=== PATIENT | male | born 1955 | race African-American/Black ===

== ENCOUNTER 2017-05-16 21:54 | Inpatient (IN) ==
[2017-05-16] MEDS ORDERED: SODIUM CHLORIDE 0.9% 1,000 ML IV STA (22:22)
[2017-05-16] MEDS ORDERED: MORPHINE 2 MG/1 ML SYRINGE IV STA (22:22)
[2017-05-16] MEDS ORDERED: ONDANSETRON 4 MG/2 ML VIAL IV STA (22:22)
--- NOTE | 2017-05-16 22:23 | Emergency Department Note ---
Aneesh Nunes Emily, am scribing for, and in the presence of, Fer Manuel MD 22:22. Kaleb Nunes Andrew, MD, personally performed the services described in this documentation, ascribed by Kelli Melendrez in my presence, and it is both accurate and complete . Arrival - Arrival Chief Complaint: Abdominal / Flank Pain Stated Complaint: STOMACH PAINS ALL DAY ED Nursing Triage Note: C/O Upper abd pain/nausea. Onset yesterday evening. Pt reports that the pain has progressively been getting worse all day today. Last BM this morning-normal. +diaphoresis noted at time of triage. Pt reports that he has been out of his zantac for a couple of days. FSG 202 at time of triage Mode of Arrival: Wheelchair Limitations: No Limitations Source: Patient, Family - History of Present Illness HPI Narrative: Pt is a 61 y/o male who came to ED with c/o sharp epigastric pain that started yesterday but worsened today. Pt notes some emesis and once after eating some naida greens for lunch. Pt admits to smoking tobacco and marijuana but denies daily ETOH use. Pt reports having mild nausea in ED. PMHx of NIDDM, HTN , GERD. Pt's heart rate is 41 in ED. Onset (ago): hour(s) Consistency: constant Severity: mild, moderate Severity scale (1-10): 4 Quality: aching, sharp Allergies/Adverse Reactions: Allergies Allergy/AdvReac Type Severity Reaction Status Date / Time codeine Allergy Intermediate ITCHING Verified 05/16/17 21:58 Home Medications: Home Medications Medication Instructions Recorded Confirmed Type Aspirin 81 mg PO DAILY 05/16/17 05/16/17 History Atenolol 100 mg PO BID 05/16/17 05/16/17 History Ranitidine Tab [Zantac Tab] 75 mg PO DAILY 05/16/17 05/16/17 History metFORMIN [Glucophage] 500 mg PO BID W/MEALS 05/16/17 05/16/17 History Review of System - Review of System 12 point system: reviewed and no additional remarkable complaints except as stated - Review of System Constitutional: Absent: fever Respiratory: Absent: respiratory distress Cardiovascular: Absent: chest pain Gastrointestinal: Present: abdominal pain (upper), nausea, vomiting. Absent: diarrhea Musculoskeletal: Absent: arm pain, back pain Skin: Absent: rash Neurological: Absent: headache Medical,Surgical,& Family Hx - Medical History Cardio: History of: Hypertension Endocrine: History of: Diabetes Mellitus (NIDDM) Gastrointestinal: History of: GERD - Social History Smoking Status: Never smoker Frequency of Alcohol Use: None Type of Drug Use: None Marital Status: Single Lives With:: Alone Functional capacity: independent ambulation Exam Vital Signs: Vital Signs Temperature 97.9 F 05/16/17 22:34 Pulse Rate 38 L 05/16/17 22:34 Respiratory Rate 18 05/16/17 22:34 Blood Pressure 210/120 05/16/17 22:34 O2 Sat by Pulse Oximetry 98 05/16/17 22:10 - General General appearance: alert, in no apparent distress - Head Head exam: Present: atraumatic, normocephalic - Eye Eye exam: Present: PERRL, EOMI - ENT ENT exam: Present: mucous membranes moist. Absent: mucous membranes dry - Neck Neck exam: Present: full ROM. Absent: tenderness - Chest Chest inspection: Present: symmetric chest wall rise. Absent: tenderness - Respiratory Respiratory exam: Present: normal lung sounds bilaterally. Absent: accessory muscle use, respiratory distress, wheezes - Cardiovascular Cardiovascular exam: Present: bradycardia, normal heart sounds - Abdominal Exam Abdominal exam: Present: soft, tenderness (diffuse tenderness in abdomen and epigastric region). Absent: distention, guarding, rebound - Extremities Exam Extremities exam: Present: full ROM. Absent: tenderness, pedal edema - Neurological Exam Neurological exam: Present: alert, oriented X3, CN II-XII intact. Absent: motor sensory deficit - Psychiatric Psychiatric exam: Present: normal affect, normal mood - Skin Skin exam: Present: warm, dry Course Course Narrative: Patient presents in extremis, and given morphine and Zofran for pain and nausea respectively. Blood pressure elevated and with epigastric pain and bradycardia on EKG, nitroglycerin given without significant improvement. No aspirin given as the possibility of aortic dissection was considered. Given patient's significant abdominal tenderness and guarding, concern for intra-abdominal pathology is considered as well. Normal white blood cell count, elevated H/H 20.4/57.7. Lipase normal. CTA aorta without evidence of aortic pathology, CT abdomen/pelvis reveals evidence of free air. Patient discussed with Dr. Martins and plan for admission for surgical management. Zosyn given. Results - Labs CBC & BMP: 05/16/17 22:30 05/16/17 22:30 Lab Results: I have reviewed the patients labs Labs: Laboratory Tests 05/16/17 22:30 RBC 6.94 H Hgb 20.4 H* Hct 57.7 H MCV 83.1 L Plt Count 129 L MPV 13.2 H Laboratory Tests 05/16/17 22:30 Sodium 138 Potassium 3.6 Chloride 100 Carbon Dioxide 28 Anion Gap 13.6 BUN 21 H Creatinine 1.40 H GFR Calculation 62 BUN/Creatinine Ratio 15.00 Glucose 198 H Calculated Osmolality 283.7 Lactic Acid 2.1 H Calcium 10.0 Total Bilirubin 0.90 AST 18 ALT 30 Alkaline Phosphatase 117 Troponin I 0.986 H Total Protein 7.5 Albumin 4.3 Globulin 3.2 Albumin/Globulin Ratio 1.3 Lipase 211.0 - Diagnostic Findings Procedure: CT Abdomen and Pelvis: image reviewed by me (Free air noted with some free fluid per my read), CT - chest: image reviewed by me (No evidence of aortic pathology per my read) Critical Care Time Critical Care Time: Yes (60) Disposition Clinical Impression: Epigastric pain, Surgical abdomen, Bradycardia, Elevated troponin, Intra- abdominal free air of unknown etiology Case discussed with: patient, patient's family Disposition: Still a Patient Condition: Guarded
[2017-05-16] MEDS ORDERED: ONDANSETRON 4 MG/2 ML VIAL ONE (22:38)
[2017-05-16] MEDS ORDERED: HYDROmorphone 2 MG/1 ML VIAL IV STA ×2 (22:39→23:19)
[2017-05-16] MEDS ORDERED: MORPHINE 2 MG/1 ML SYRINGE ONE (22:39)
[2017-05-16 22:41] LABS: Basophils % 0.6 % (0.0-0.8); Eosinophils # 0.1 10*3/uL (0.0-0.87); Eosinophils % 0.9 % (0.00-10.9); Hematocrit 57.7 VOL% (42.0-52.0); Immature Granulocytes % 0.3 %; Immature Granulocytes Absolute 0.02 #; Lymphocytes # 2.2 10*3/uL (1.4-4.0); Lymphocytes % 32.1 % (21.2-54.2); Mean Corpuscular HGB Conc 35.4 GM/DL (32-36); Mean Corpuscular Hemoglobin 29 PG (27-34); Mean Corpuscular Volume 83.1 FL (87-102); Mean Platelet Volume 13.2 FL (9.6-12.0); Monocytes # 0.6 10*3/uL (0.11-0.8); Monocytes % 8.9 % (1.7-12.7); Neutrophils # 3.9 10*3/uL (1.4-7.4); Neutrophils % 57.2 % (38.7-73.9); Platelet Count 129 T/CUMM (130-400); Red Blood Count 6.94 MC/CUMM (3.8-5.5); Red Cell Distribution Width 13.2 % (9.3-17.3); White Blood Count 6.7 T/CUMM (4-12)
[2017-05-16 22:43] LABS: Hemoglobin 20.4 GM/DL (14.0-18.0)
[2017-05-16 23:04] LABS: Albumin 4.3 G/DL (3.4-5.0); Bilirubin,Total 0.9 MG/DL (0.2-1.0); Osmolality,Calculated 283.7 MOS/KG (273-304); Potassium 3.6 MMOL/L (3.5-5.1); Total Protein 7.5 G/DL (6.4-8.3)
[2017-05-16 23:05] LABS: Troponin I Only 0.986 NG/ML (0.00-0.045)
[2017-05-16 23:10] LABS: Lactic Acid 2.1 MMOL/L (0.4-2.0)
[2017-05-16] MEDS ORDERED: HYDROmorphone 2 MG/1 ML VIAL ONE (23:12)
[2017-05-16 23:38] LABS: Platelet Estimate Adequate
[2017-05-16] MEDS ORDERED: PIPERACILLIN/TAZOBACTAM 3,375 MG VIAL IV ONE (23:39)
[2017-05-16] MEDS ORDERED: SODIUM CHLORIDE 0.9% 100 ML IV ONE (23:39)
[2017-05-17] MEDS ORDERED: PANTOPRAZOLE 40 MG VIAL IV ONE (00:04)
[2017-05-17] MEDS ORDERED: PANTOPRAZOLE 40 MG VIAL IV STA (00:21)
[2017-05-17] MEDS ORDERED: PIPERACILLIN/TAZOBACTAM 3,375 MG in SODIUM CHLORIDE 0.9% 100 ML IV STA (00:21)
[2017-05-17] MEDS ORDERED: LACTATED RINGERS 1,000 ML IV ONE (00:35)
--- NOTE | 2017-05-17 00:40 | General Surg History&Physical ---
Assessment and Plan (1) Intra-abdominal free air of unknown etiology Status: Acute Assessment and plan: This patient has a perforated viscus that needs to be operated on tonight. With his history of ulcer disease this makes a perforated ulcer the most likely culprit. I recommended robotic assisted laparoscopic evaluation with repair of perforation but of also discussed the possibility of colectomy and colostomy of this was related to the colon problem. I have also discussed the possibility of laparotomy. I have discussed the risks, benefits, and alternatives of the operation, and the expected outcomes have been reviewed. In particular, I discussed the risk of injury to surrounding structures as well as failure of Richie patch and persistent leak requiring repeat operation. The patient has a mildly elevated troponin and he is very hemoconcentrated and we will resuscitate him aggressively with IV fluids and antibiotics and plan for surgery tonight. He is a little bit bradycardic so we will have to watch this during surgery and insufflation and this may preclude a laparoscopic surgery in which case we have to do this open. Current Visit: Yes History of Present Illness Chief complaint: Abdominal pain History of present illness: Mr. Riojas is a 61 year old male with a history of gastric ulcer disease who presents to the hospital with acute onset of midepigastric abdominal pain that woke him from sleep. He presented to the ER for evaluation. He was found to have free air and fluid on CT scan. His troponin was rodriguez area elevated at 0.98. EKG showed no ST changes concerning for ischemia. He has never had abdominal surgery. Home Medications Medication Instructions Recorded Confirmed Type Aspirin 81 mg PO DAILY 05/16/17 05/16/17 History Atenolol 100 mg PO BID 05/16/17 05/16/17 History Ranitidine Tab [Zantac Tab] 75 mg PO DAILY 05/16/17 05/16/17 History metFORMIN [Glucophage] 500 mg PO BID W/MEALS 05/16/17 05/16/17 History Allergies Allergy/AdvReac Type Severity Reaction Status Date / Time codeine Allergy Intermediate ITCHING Verified 05/16/17 21:58 Medical,Surgical,& Family Hx - Medical History Cardio: History of: Hypertension Endocrine: History of: Diabetes Mellitus (NIDDM) Gastrointestinal: History of: GERD - Social History Smoking Status: Never smoker Frequency of Alcohol Use: None Type of Drug Use: None Exam - Constitutional Vitals: Period Temp Pulse Resp BP Sys/Frias Pulse Ox Last 24 Hr 97.9 F-98.7 F 38-40 18-18 210-229/101-120 98-99 General appearance: no acute distress, over weight - Head Head exam: Present: normal inspection, normocephalic - Eye Eye exam: Present: EOMI Pupils: Present: MALACHI - ENT ENT exam: Present: normal exam Mouth exam: Present: normal external inspection, normal voice - Neck Neck exam: Present: normal inspection, trachea midline - Respiratory Respiratory exam: Present: clear to auscultation bilaterally. Absent: accessory muscle use, chest wall tenderness - Cardiovascular Cardiovascular exam: Present: bradycardia. Absent: irregular rhythm, systolic murmur, tachycardia - GI/Abdominal GI/Abdominal exam: Present: guarding, hypoactive bowel sounds, tenderness, rebound, soft - Extremities Exam Extremities exam: Present: normal inspection, normal capillary refill - Back Exam Back exam: Present: normal inspection - Neurological Exam Neurological exam: Present: alert, oriented X3 Speech: Present: normal - Skin Skin exam: Present: normal color, warm - Constitutional Constitutional: Present: as per HPI - EENT Nose, mouth and throat: Present: as per HPI - Cardiovascular Cardiovascular: Present: as per HPI - Respiratory Respiratory: Present: as per HPI - Gastrointestinal Gastrointestinal: Present: as per HPI - Genitourinary Genitourinary: Present: as per HPI - Musculoskeletal Musculoskeletal: Present: as per HPI - Neurological Neurological: Present: as per HPI - Endocrine Endocrine: Present: as per HPI Hematologic/Lymphatic: Present: as per HPI Results - Labs CBC & BMP: 05/16/17 22:30 05/16/17 22:30 - Diagnostic Findings Procedure: CT Abdomen and Pelvis: image reviewed by me (Free air and fluid)
[2017-05-17 01:07] LABS: Apearance,Urine CLEAR (Clear); Bilirubin,Urine Negative (Negative); Blood, Urine Negative (Negative); Glucose,Urine (UA) 150 mg/dL (Negative); Ketones,Urine 20 mg/dL (Negative); Nitrite,Urine Negative (Negative); Protein,Urine 100 MG/DL; RBC,Urine 1 /HPF (0-4); Urine Color Yellow (Yellow); Urine Specific Gravity 1.046 (1.001-1.035); Urine Urobilinogen < 2.0 EU/DL (0.2-1.0); WBC,Urine 1 /HPF (0-6)
[2017-05-17] MEDS ORDERED: BUPIVACAINE MPF 0.25% /EPI 30 ML VIAL ONE (01:33)
[2017-05-17] MEDS ORDERED: LIDOCAINE 1%/EPI INJ 20 ML VIAL ONE (01:34)
[2017-05-17] MEDS ORDERED: PHENYLEPHRINE 1 MG/10 ML SYRINGE IV ONE (01:42)
[2017-05-17] MEDS ORDERED: ROCURONIUM 100 MG/10 ML VIAL IV ONE (01:42)
[2017-05-17] MEDS ORDERED: PROPOFOL 200 MG/20 ML VIAL IV ONE (01:42)
[2017-05-17] MEDS ORDERED: LIDOCAINE 1% 5 ML VIAL ONE (01:42)
[2017-05-17] MEDS ORDERED: ONDANSETRON 4 MG/2 ML VIAL ONE ×2 (01:42→03:31)
[2017-05-17] MEDS ORDERED: NEOSTIGMINE 10 MG/10 ML VIAL ONE (01:42)
[2017-05-17] MEDS ORDERED: GLYCOPYRROLATE 0.4 MG/2 ML VIAL ONE (01:42)
[2017-05-17] MEDS ORDERED: TISSUE ADHESIVE 1 EACH APPLICATOR TOP ONE (03:05)
--- NOTE | 2017-05-17 03:21 | Operative Note ---
Date of procedure: 05/17/17 Pre-op diagnosis: Free air with peritonitis Post-op diagnosis: other (Duodenal perforation) Procedure: Preoperative diagnosis Free air with peritonitis Postoperative diagnosis Perforated duodenal bulb ulcer with peritonitis Procedures performed Robotic assisted laparoscopic repair of duodenal perforation with primary closure and Richie patch with falciform ligament Findings A perforated duodenal bulb ulcer was found. This was repaired with a 3-0 Vicryl full-thickness closure as well as a falciform pedicle Richie patch sewn in place with 2-0 silk Lembert sutures. A #10 [place] drain was placed over the repair. The abdomen was full of succus and was suction irrigated until all this was cleared. Complications None apparent Specimen None Anesthesia GETA Blood loss 10 mL Indications Free air with peritonitis Description of procedure The patient was taken to the operating room and transferred to the operating table in the supine position. Pressure points were padded and SCDs were placed the bilateral lower extremities. General endotracheal anesthesia was administered. A Guy catheter was placed with clear urine output. The abdomen was prepped with chlorhexidine and draped sterilely. Preoperative antibiotics were administered, and a timeout was performed. The abdomen was entered in a paramedian location with a Veress needle. An 8 mm skin incision was made with an 11 blade scalpel and the Veress needle was used into the peritoneal cavity confirmed by double click technique. Aspiration was negative. Saline drop test confirmed intraperitoneal location. The abdomen was insufflated to 15 mmHg with initial insufflation pressure of 3 mmHg. The patient became a little bit bradycardic at 15 mmHg so the pressure was reduced to 10 mmHg. The laparoscope was then inserted and a diagnostic laparoscopy revealed a lot of succus in the abdominal cavity with peritonitis and a perforation of the duodenal bulb just distal to the pylorus with active drainage of enteric contents. Under direct visualization, 2 additional robotic trochars were placed in an executive personal assistant 11 mm trocar was placed. The robot was then docked. I left the bedside portion of the case and went to the robotic console at this time. The perforation was exposed easily and the falciform ligament appeared to be the most appropriate pedicle to create a well vascularized flap of tissue to cover the defect. This was a Richie patch closure. The falciform ligament was mobilized with the scissors on electrocautery and the perforation was closed primarily with 3-0 Vicryl sutures. The size of the perforation was about 5 mm. There is no mass associated with the ulcer. The NG tube was withdrawn by the anesthesia team to make sure that it was not incorporated into the closure and then it was re- positioned after the closure was performed. The falciform pedicle flap was then placed over the repair and sewn in with 2-0 silk Lembert sutures. It was not under any tension. A #10 [place] drain was then placed through the lateral robotic trocar and the robot was then undocked. I scrubbed back into the bedside portion of the case. The abdomen was suction irrigated until the effluent was clear. The 2 L of fluid was used to accomplish this. Afterwards the CO2 was released from the abdomen and the drain was sewn in place with a 3- 0 nylon suture. The skin incisions were closed with 4-0 Monocryl and sterile skin glue. The patient was awakened from anesthesia after his Guy catheter was removed and he was transferred to recovery in stable condition. Postoperative plan Monitor FRANCE drain Implants: #10 [place] drain Anesthesia: KEYSHA Surgeon / Physician: Michel Martins Estimated blood loss: minimal Specimens: none sent Condition: stable Disposition: PACU Results - Labs CBC & BMP: 05/16/17 22:30 05/16/17 22:30 Discharge Plan - Discharge Data Disposition: Still a Patient - Discharge Medications No Action metFORMIN [Glucophage] 500 mg PO BID W/MEALS Aspirin 81 mg PO DAILY Ranitidine Tab [Zantac Tab] 75 mg PO DAILY Atenolol 100 mg PO BID - Follow Up or Referral - Forms/Instructions
[2017-05-17] MEDS ORDERED: HYDROmorphone 2 MG/1 ML VIAL ONE (03:31)
[2017-05-17] MEDS ORDERED: hydrALAZINE 20 MG/1 ML VIAL ONE (03:31)
[2017-05-17] MEDS: HYDROmorphone 2 MG/1 ML VIAL IV PRN ×3 (03:32→03:57)
[2017-05-17] MEDS ORDERED: MIDAZOLAM 2 MG/2 ML VIAL ONE (03:39)
[2017-05-17] MEDS ORDERED: ePHEDrine 50 MG/ML AMP ONE (03:39)
[2017-05-17] MEDS ORDERED: fentaNYL 100 MCG/2 ML VIAL ONE (03:39)
[2017-05-17] MEDS ORDERED: ONDANSETRON 4 MG/2 ML VIAL IV PRN ×2 (03:44→04:20)
[2017-05-17] MEDS ORDERED: hydrALAZINE 20 MG/1 ML VIAL IV STA (03:45)
--- NOTE | 2017-05-17 03:46 | Anesthesia Post-Op ---
Anesthesia Post OP - Post Ansesthetic Evaluation Patient seen in post op: Yes Resp: within normal limits CV: within normal limits Mental: within normal limits Temp: within normal limits [id number]: within normal limits Nausea and Vomiting: within normal limits Pain: within normal limits
[2017-05-17] MEDS ORDERED: HYDROmorphone 2 MG/1 ML VIAL IV PRN (04:20)
[2017-05-17] MEDS ORDERED: PROMETHAZINE 25 MG/1 ML VIAL IM PRN (04:20)
[2017-05-17] MEDS ORDERED: GLUCAGON 1 MG VIAL IM PRN (04:20)
[2017-05-17] MEDS ORDERED: DEXTROSE 50% 25 GM/50 ML VIAL IV PRN (04:20)
[2017-05-17] MEDS: LACTATED RINGERS 1,000 ML IV SCH ×3 (04:27→20:26)
[2017-05-17] MEDS ORDERED: PNEUMOCOCCAL VACCINE (23 VALENT) 0.5 ML VIAL IM ONE (05:01)
[2017-05-17] MEDS ORDERED: INSULIN REGULAR 100 UNIT/ML SUBCUT SCH (06:00)
[2017-05-17 06:48] LABS: Basophils # 0.1 10*3/uL (0.0-0.2); Basophils % 0.5 % (0.0-0.8); Hematocrit 52.4 VOL% (42.0-52.0); Hemoglobin 18.6 GM/DL (14.0-18.0); Immature Granulocytes % 0.3 %; Immature Granulocytes Absolute 0.08 #; Lymphocytes # 0.7 10*3/uL (1.4-4.0); Lymphocytes % 3.1 % (21.2-54.2); Mean Corpuscular HGB Conc 35.5 GM/DL (32-36); Mean Corpuscular Hemoglobin 30 PG (27-34); Mean Corpuscular Volume 83.4 FL (87-102); Mean Platelet Volume 12.1 FL (9.6-12.0); Monocytes # 2.1 10*3/uL (0.11-0.8); Monocytes % 8.6 % (1.7-12.7); Neutrophils # 20.9 10*3/uL (1.4-7.4); Neutrophils % 87.5 % (38.7-73.9); Platelet Count 143 T/CUMM (130-400); Red Blood Count 6.28 MC/CUMM (3.8-5.5); White Blood Count 23.9 T/CUMM (4-12)
--- NOTE | 2017-05-17 07:18 | CT Report ---
Exam: CT angio chest aortic Date: 05/16/2017 11:10 PM Comparison: None Indication: Upper abdominal pain hypertension diaphoresis Total DLP: 356.4 mGy*cm Technical: Images were obtained through the chest with 3-D reproduction images performed. Axial sagittal coronal imaging available for review. 100 cc of contrast was administered. Dose reduction was performed with decreasing kv and mA and automated exposure Findings: The study was initially reviewed by [facility]. No obvious aneurysm of the thoracic aorta present. The proximal aspect of the left coronary artery and LAD and circumflex arteries are intact. The right coronary artery is faintly demonstrated. Mild prominence the cardiac silhouette present. The thyroid gland and trachea and esophagus are unremarkable. Minimal dependent atelectatic change present in the lung bases. The bony structures are unremarkable. The brachiocephalic artery and the proximal right and left subclavian arteries and carotid arteries are unremarkable. The vertebral arteries are patent bilaterally. The pulmonary arteries are unremarkable. Old healed left rib fractures. Impression: 1. No obvious aneurysm or pulmonary thromboembolism. 2. Old left rib fractures 3. Cardiomegaly Exam: CT angio abdomen pelvis complete Date: 05/16/2017 11:10 PM Comparison: None Indication: As above Technical: Images were obtained from the lung bases through the iliac crest continuation through the abdomen/ pelvis with sagittal axial and coronal imaging available for review. 3-D Maximal intensity reproduction images are available for review. 100 cc of Omnipaque 350 were utilized. Dose reduction was performed with decreasing kv and mA and automated exposure Total DLP: As above mGy*cm Findings: CT angiogram: Abdomen/pelvis. No obvious aneurysm of the abdominal aorta. The hepatic and splenic arteries and celiac arteries are intact. The SMA is unremarkable. The renal arteries are patent bilaterally without abnormality. Inferior mesenteric artery is intact. Vascular plaque is present in the distal aorta extending into the iliac arteries. The external and internal iliac arteries are otherwise patent. Common femoral arteries are patent bilaterally. Soft tissue analysis: Lung bases: Described above Liver and Spleen: Minimal fatty infiltration of the liver is present. No focal mass is present. Spleen is unremarkable. Gallbladder and Pancreas: Slightly distended gallbladder without stones. No intra or extrahepatic duct dilatation within the liver and no mass demonstrated within the pancreas Adrenals: Unremarkable Kidneys: Both kidneys are equally perfused and demonstrate no evidence for obstructive uropathy. Stomach: Incomplete distended with air fluid and debris Retroperitoneum: No enlarged lymph nodes. The IVC is unremarkable Bowel and Mesentery: Some free fluid present in the upper abdomen suggest ascites. Small amount of air is also suspected in the upper abdomen not otherwise clarified Pelvis: Bladder: Incompletely distended with fluid Fluid: Trace of free fluid in the deep pelvis. Lymph nodes: No enlarged lymph nodes. Pelvic organs: Unremarkable Osseous structures: Degenerative changes present thoracolumbar spine with previous intrapedicular screws at L5-S1. Impression: 1. Free fluid in the abdomen with pneumoperitoneum also suspected with small amount of free air associated with the fluid. This could represent a perforated viscus not otherwise clarified 2. No obvious aneurysm or aortic dissection 3. Previous intrapedicular screws stabilizing bars and rods. Critical test report was called and communicated to Dr. Manuel at 1218 by [facility] radiology. PROCEDURE INTERPRETED AT [facility] DEPARTMENT OF RADIOLOGY Final Report Signed by: Dr. Fawad Diaz
[2017-05-17 07:20] LABS: Blood Urea Nitrogen 15 MG/DL (7-18); Calcium 8.9 MG/DL (8.5-10.1); Glucose 238 MG/DL (74-106); Magnesium 2.1 MG/DL (1.8-2.4); Osmolality,Calculated 283.7 MOS/KG (273-304); Potassium 3.9 MMOL/L (3.5-5.1); Sodium 138 MMOL/L (136-145); Troponin I Only 0.974 NG/ML (0.00-0.045)
[2017-05-17 07:26] LABS: Band Neutrophils 7 % (0-10); Hypochromasia 1+; Lymphocytes 4 % (20-55); Platelet Estimate Normal; Segmented Neutrophils 82 % (50-85); Total Cells Counted 100
--- NOTE | 2017-05-17 08:22 | XRay Report ---
History: Chest pain Date: 05/16/2017 Study: Chest x-ray AP portable Comparison exam: No previous chest x-ray available for comparison There is mild cardiomegaly. The cardiomediastinal silhouette and pulmonary vasculature are otherwise unremarkable. The lungs and pleural spaces are clear. Shallow breath. The osseous structures are unremarkable. Impression: Mild cardiomegaly. No definite acute process PROCEDURE INTERPRETED AT [facility] DEPARTMENT OF RADIOLOGY Final Report Signed by: Dr. Jovita Benz
--- NOTE | 2017-05-17 08:35 | EKG Report ---
Stationary ECG Study [facility] ER Test Date: 05/16/2017 10:11:02 PM Pat Name: LOLIS BLANTON Department: Room: 343 Gender: M Paediatric Surgeon: YANE : [id number] Requested by: Michel Martins Order Number: [id number] Reading MD: VICTORINA MORGAN Intervals [place] Rate: 37 P: 61 [place]: 156 QRS: 37 QRSD: 98 T: 259 QT: 522 QTc: 439 Interpretive Statements SINUS BRADYCARDIA SHORT [place] INTERVAL LEFT ATRIAL ENLARGEMENT LEFT VENTRICULAR HYPERTROPHY AND ST-T CHANGE Electronically Signed On 05-17-17 10:35:06 CDT by VICTORINA MORGAN [email or web address]
[2017-05-17] MEDS ORDERED: ATENOLOL 100 MG TABLET PO SCH (09:00)
[2017-05-17 09:06] LABS: Basophils # 0.1 10*3/uL (0.0-0.2); Basophils % 0.3 % (0.0-0.8); Hematocrit 51.3 VOL% (42.0-52.0); Hemoglobin 17.9 GM/DL (14.0-18.0); Immature Granulocytes % 0.4 %; Lymphocytes # 0.7 10*3/uL (1.4-4.0); Mean Corpuscular HGB Conc 34.9 GM/DL (32-36); Mean Corpuscular Hemoglobin 29 PG (27-34); Mean Corpuscular Volume 83.3 FL (87-102); Mean Platelet Volume 12.6 FL (9.6-12.0); Monocytes # 1.6 10*3/uL (0.11-0.8); Monocytes % 7.1 % (1.7-12.7); Neutrophils # 20.8 10*3/uL (1.4-7.4); Neutrophils % 89.2 % (38.7-73.9); Platelet Count 156 T/CUMM (130-400); Red Blood Count 6.16 MC/CUMM (3.8-5.5); Red Cell Distribution Width 13.2 % (9.3-17.3); White Blood Count 23.3 T/CUMM (4-12)
--- NOTE | 2017-05-17 09:27 | Hospitalist Consult Note ---
Assessment and Plan - Time spent with patient Time spent with patient: Greater than 30 minutes (1) Status post duodenal ulcer repair Status: Acute Assessment and plan: Mr. Riojas is a pleasant 61-year-old -[place] male with history of diabetes, hypertension, and stomach ulcer admitted by Dr. Martins in the middle the night with a perforated duodenal ulcer. He was taken to the OR for repair of this ulcer. Patient's NG tube is out and he has been started on a clear liquid diet for lunch. Dr. Rodríguez has been consulted for medical management. He will see and examined patient and further recommendations to follow. Hypertension--patient's blood pressures are elevated to 198/93. He takes atenolol 100 mg p.o. twice daily for his blood pressure but this is been held due to him being n.p.o. He has been started on clear liquid diet it seems to be tolerating water at this time without nausea or vomiting. We will go ahead and start him on a clonidine patch for right now and Vasotec IV every 6 hours until I can be sure he will tolerate his liquids without nausea before restarting his p.o. meds. History of dysrhythmia/bradycardia--patient has seen a flight radio officer in [place] before for a history of dysrhythmia. He was bradycardic upon admission but his heart rate is in the 60-80s at this time. Will consult cardiology for this as well as his elevated troponins and abnormal EKG. The patient has no complaints of chest pain or shortness of breath at this time. We will go ahead and start a clonidine patch to help with his blood pressure along with Vasotec IV scheduled for now. Hold off on the atenolol p.o. until I can be sure he can tolerate liquids without nausea or vomiting and see what cardiology thinks. Elevated troponins--patient's troponins were elevated to 0.986 and his follow- up troponin this morning is 0.974. We will go ahead and consult cardiology for evaluation. Patient has no complaints of chest pain or shortness of breath at this time. Diabetes--patient's blood sugars are running in the high 200s. Will hold his metformin for now and just do sliding scale insulin until discharge. Codeine allergy--patient is having some itching from his Dilaudid injections. Patient has never had issues with Demerol before so we will switch his pain medicines around. And he will get some Benadryl as needed for his itching. Current Visit: Yes (2) Hypertension Status: Acute Current Visit: Yes (3) Diabetes Status: Acute Current Visit: Yes (4) History of cardiac dysrhythmia Status: Acute Current Visit: Yes (5) Elevated troponin Status: Acute Current Visit: Yes History of Present Illness - Data of Consult Patient: new to practice Consult date: 05/17/17 Requesting Physician: Michel Martins Primary care physician: Xiomara Miller - Consult Narrative Reason for consult: medical management History of present illness: Mr. Riojas is a 61 year old -[place] male with history of diabete, hypertension, and history of ulcer disease admitted by Dr. Martins in the middle the night with midepigastric abdominal pain found to be perforated duodenal ulcer. Patient was taken to the OR by Dr. Martins due to free air with peritonitis and he performed a robotic assisted laparoscopic repair of duodenal perforation with primary closure and Richie patch with falciform ligament. Patient is up in the bathroom cleaning up this morning. He has no complaints of headache, dizziness, dysphagia, chest pain, shortness of breath, or lower extremity edema. He is having some postop abdominal pain that is controlled at this time. He has been given some water and he is tolerating this without nausea or vomiting and his diet has been advanced to a clear liquid diet for lunch. Patient states he does have an allergy to codeine and the Dilaudid he has been given this morning is making him itchy. Patient normally takes Metformin, Zantac, atenolol, and aspirin for his home medicines. These of all been held due to being n.p.o. Patient's blood pressures are elevated to 198/93 and his blood sugars are elevated in the low 200s. Patient's white count is elevated at 23.3 but this is expected in this postop period. Patient's troponins were elevated upon admission at 0.986 and his follow-up troponin this morning is 0.974. Patient has no complaints of chest pain, his EKG showed sinus bradycardia with possible left atrial enlargement and left ventricular hypertrophy and ST to T-wave changes. Patient has no chest pain or bradycardia this morning. Dr. Rodríguez has been consulted to assist in this patient' s medical management. CC: Michel Martins MD - Home Medications and Allergies Home Medications: Home Medications Medication Instructions Recorded Confirmed Type Aspirin 81 mg PO DAILY 05/16/17 05/17/17 History Atenolol 100 mg PO BID 05/16/17 05/17/17 History Ranitidine Tab [Zantac Tab] 75 mg PO DAILY 05/16/17 05/17/17 History metFORMIN [Glucophage] 500 mg PO DAILY W/BREAKFAST 05/16/17 05/17/17 History Allergies/Adverse Reactions: Allergies Allergy/AdvReac Type Severity Reaction Status Date / Time codeine Allergy Intermediate ITCHING Verified 05/16/17 21:58 Medical,Surgical,& Family Hx - Medical History Cardio: History of: Cardiac Dysrhythmia, Hypertension HEENT: History of: Eye Problem (cataract right eye) Endocrine: History of: Diabetes Mellitus (NIDDM) Gastrointestinal: History of: GERD Musculoskeletal: History of: Back/Neck Problems (back and left shoulder pain) - Surgical History HEENT Surgeries: Surgical HX of: Eye Surgery ("eye surgery in right eye") Orthopedic Surgeries: Surgical HX of;: Orthopedic Surgery ("Back surgery years ago") - Family History Family History: Reports;: Family Diabetes (mother, three sisters), Family Hypertension (sister) - Social History Smoking Status: Current some day smoker Have you smoked in the last 12 months: Yes Frequency of Alcohol Use: None Type of Drug Use: None Marital Status: Single Lives With:: Sibling Functional capacity: independent ambulation Review of systems: A complete 10 system review of systems was obtained and pertinent positives and negatives per HPI Exam - Constitutional Vitals: Period Temp Pulse Resp BP Sys/Frias Pulse Ox Last 24 Hr 97.5 F-98.9 F 38-90 14-25 183-250/89-127 96-100 Exam: Constitutional System: No distress. [No] tremulousness. Head: Normocephalic, atraumatic. Ears, Nose and Throat System: No evidence of Otitis or Mastoiditis. No epistaxis or discharge Eyes System: Pupils equal, round, and reactive. Extraocular muscles intact. Neck: Supple, without adenopathy, [No] jugular venous distention. No thyromegaly , neck mass, or prior surgery apparent. Respiratory System: Chest [clear] to auscultation. Cardiovascular System: Heart with [regular] rate and rhythm. [No] murmur. GI System: Abdomen mildly distended, appropriately tender. Hypoactive bowel sounds present. Musculoskeletal System: limbs with [no] pedal edema. [Full] distal pulses. Neurological System: [No discernable] sensory deficit. [No] aphasia Psychiatric System: Conversation is [rational] Results - Labs CBC & BMP: 05/17/17 08:56 05/17/17 06:42 Lab Results: I have reviewed the past 24 hour labs - EKG EKG shows: bradycardia - Diagnostic Findings Procedure: Chest x-ray: report reviewed by me (Mild cardiomegaly. No definite acute process.), CT: report reviewed by me (CT angiogram showed no obvious aneurysm or pulmonary thromboembolism, old left rib fractures, cardiomegaly.)
[2017-05-17 09:41] LABS: Band Neutrophils 2 % (0-10); Lymphocytes 3 % (20-55); Platelet Estimate Normal; Segmented Neutrophils 88 % (50-85); Total Cells Counted 100
[2017-05-17] MEDS: PANTOPRAZOLE 40 MG VIAL IV SCH ×2 (09:51→21:07)
[2017-05-17] MEDS: CLARITHROMYCIN 500 MG TABLET PO SCH ×2 (09:52→21:08)
[2017-05-17] MEDS: ASPIRIN CHEW 81 MG TABLET PO SCH (09:52)
[2017-05-17] MEDS: AMOXICILLIN 500 MG CAPSULE PO SCH ×2 (09:52→21:08)
[2017-05-17] MEDS ORDERED: MEPERIDINE 25 MG/1 ML VIAL IV PRN (09:54)
[2017-05-17] MEDS ORDERED: MEPERIDINE 50 MG/1 ML VIAL IV PRN (09:54)
[2017-05-17] MEDS ORDERED: ENALAPRIL 2.5 MG/2 ML VIAL IV SCH (10:00)
[2017-05-17] MEDS ORDERED: diphenhydrAMINE 50 MG/1 ML VIAL IV PRN (10:02)
[2017-05-17] MEDS ORDERED: cloNIDine 0.1 MG/24 HR PATCH TRANSDERM SCH (10:30)
[2017-05-17] MEDS: ATENOLOL 25 MG TABLET PO SCH (11:03)
--- NOTE | 2017-05-17 11:19 | Cardiology Consult Note ---
<Grace Urbina E - Last Filed: 05/17/17 10:33> Assessment and Plan - Time spent with patient Time spent with patient: Greater than 30 minutes Time spent discussing smoking cessation with patient: 3 to 10 minutes (1) Marijuana use Status: Chronic Assessment and plan: SEE PLAN OF CARE LISTED BELOW Current Visit: Yes (2) Bradycardia Status: Resolved Assessment and plan: SEE PLAN OF CARE LISTED BELOW Current Visit: Yes (3) Elevated troponin Status: Acute Assessment and plan: SEE PLAN OF CARE LISTED BELOW Current Visit: Yes (4) Hypertension Status: Chronic Assessment and plan: SEE PLAN OF CARE LISTED BELOW Current Visit: Yes (5) Diabetes Status: Chronic Assessment and plan: SEE PLAN OF CARE LISTED BELOW Current Visit: Yes History of Present Illness - Data of Consult Patient: new to practice Consult date: 05/17/17 Requesting Physician: Yeimy Stratton Primary care physician: Xiomara Miller - Consult Narrative Reason for consult: elevated troponin, bradycardia History of present illness: 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 DR. GODINEZ seeing during this admission. Mr. Riojas, 61BM, is followed by marine architect in [place], [place] for slow heart rate. Name of marine architect is unknown and it has been several years since Mr. Riojas has followed up. Risk factors include: hypertension, diabetes , marijuana use, sedentary lifestyle. Patient presented to the emergency department at [facility] May 16, 2017 with worsening abdominal pain. Patient reports he had intermittent, sharp pain for several years however it continued to worsen yesterday to the point he felt as if he should be evaluated. He did become nauseated and vomited after eating lunch. CT chest revealed free fluid in the abdomen. During the night, patient was taken emergently to surgery for repair of perforated duodenal bulb ulcer with peritonitis. He tolerated the procedure well and was returned to recovery in stable condition. While in the emergency department, EKG was obtained which revealed a sinus bradycardia with inverted T waves. Of note, patient does take atenolol 100 mg orally twice daily. This has been held and his heart rate has increased and is currently in the 70s -80s beats per minute. Troponin was obtained with 2 results noted to be 0.986 -0.974. Patient denies currently having chest pain. He reports he has never had a stress test or cardiac catheterization. Patient reports he is chronically short of breath with exertion and this is unchanged over a period of years. Reports he has chest pain, usually after a meal and relieved with antiacid. At this time, patient is chest pain-free. Dr. Godinez is at the bedside and the following will be obtained: Echocardiogram, reincorporate low-dose atenolol daily as the patient may have rebound tachycardia. Patient is now taking in oral fluids, bowel sounds are hypoactive. Will discontinue Clonidine patch and start Norvasc and Lisinopril. Checking labs daily. EKG in the morning. At some point, after patient has recovered from his perforated gastric ulcer, he has been encouraged to follow- up with his marine architect in [place] for further management of his bradycardia, nondescript chest pain. He has verbalized understanding. ASSESSMENT/PLAN: 1. BRADYCARDIA - resolved with holding of betablocker. Adding low dose betablocker as he may experience rebound tachycardia. 2. ELEVATED TROPONIN - flat. Without complaints of chest chest pain. May benefit fro moutpatient stress test once recovered from surgery. 3. HYPERTENSION - adjusting medications for better control. 4. DIABETES - adding AMANDA. BMP in AM. 5. ABNORMAL EKG - sinus bradycardia, LVH pattern. Echo ordered. EKG in the morning. 6. PERFORATED GASTRIC ULCER - 7. MARIJUANA USE - greater than 5 minutes was spent discussing the merits of cessation. CC: Michel Martins MD - Home Medications and Allergies Home Medications: Home Medications Medication Instructions Recorded Confirmed Type Aspirin 81 mg PO DAILY 05/16/17 05/17/17 History Atenolol 100 mg PO BID 05/16/17 05/17/17 History Ranitidine Tab [Zantac Tab] 75 mg PO DAILY 05/16/17 05/17/17 History metFORMIN [Glucophage] 500 mg PO DAILY W/BREAKFAST 05/16/17 05/17/17 History Allergies/Adverse Reactions: Allergies Allergy/AdvReac Type Severity Reaction Status Date / Time codeine Allergy Intermediate ITCHING Verified 05/16/17 21:58 Review of systems: REVIEW OF SYSTEMS: See HPI - Constitutional Constitutional: Absent: syncope, anorexia, night sweats - EENT Eyes: Absent: blurry vision, loss of vision, diplopia Ears: Absent: decreased hearing, ear pain, ear discharge - Cardiovascular Cardiovascular: Present: chest pain after eating, primarily. Chronic dyspnea on exertion. Denies edema, palpitations. Absent: chest pain with deep breath, claudication - Respiratory Respiratory: Present: JOSE, cough. Absent: wheezing, hemoptysis, change in phlegm color - Gastrointestinal Gastrointestinal: Denies constipation. Present: abdominal pain, hematemesis, hematochezia, melena, change in bowel habits - Genitourinary Genitourinary: Absent: difficulty urinating, dysuria, urinary hesitancy, flank pain - Musculoskeletal Musculoskeletal: Present: back pain Absent: joint swelling, muscle cramps, muscle weakness - Neurological Neurological: Present: normal gait without frequent falls. Absent: dizziness, hemiparesis - Psychiatric Psychiatric: Absent: anxiety, depression, difficulty concentrating - Endocrine Endocrine: Present: fatigue. Absent: cold intolerance, heat intolerance, polyuria, polyphagia, polydipsia - Hematologic/Lymphatic Hematologic/Lymphatic: Present: easy bruising. Absent: easy bleeding -Integumentary Integumentary: Absent: lesions, rashes, skin breakdown Medical,Surgical,& Family Hx - Medical History Cardio: History of: Cardiac Dysrhythmia, Hypertension No history of: CAD, [place] HEENT: History of: Eye Problem (cataract right eye) Endocrine: History of: Diabetes Mellitus (NIDDM) Gastrointestinal: History of: GERD Musculoskeletal: History of: Back/Neck Problems (back and left shoulder pain) - Surgical History HEENT Surgeries: Surgical HX of: Eye Surgery ("eye surgery in right eye") Orthopedic Surgeries: Surgical HX of;: Orthopedic Surgery ("Back surgery years ago") - Family History Family History: Reports;: Family Diabetes (mother, three sisters), Family Hypertension (sister) - Social History Smoking Status: Current some day smoker Have you smoked in the last 12 months: Yes Time spent discussing smoking cessation with patient: 3 to 10 minutes Frequency of Alcohol Use: None Type of Drug Use: None Physical Examination Vital Signs Temp Pulse Resp BP Pulse Ox 98.7 F 40 L 18 229/101 99 05/16/17 22:00 05/16/17 22:00 05/16/17 22:00 05/16/17 22:00 05/16/17 22:00 General: [Appears well with no apparent distress.] [Pleasant and cooperative. ] [Appears comfortable.] HEENT: [Bilateral arcus noted, normocephalic, atraumatic. Mucous membranes moist. No jaundice noted. Conjunctiva moist and clear, sclerae anicteric] Neck: No JVD/HJR, no thyromegaly or lymphadenopathy noted. No carotid bruit appreciated Cardiac: [Regular rate and rhythm.] [No obvious murmur rub or gallop.] Lungs: [Clear to auscultation without accessory muscle use to assist the respiratory pattern.] Using oxygen intermittently Abdomen: Soft, bowel sounds normoactive. Slight distention, [place] drain intact with negative discharge. Small amount of serosanguineous fluid noted in bulb. Dressing dry and intact. No masses noted. Musculoskeletal: No fluid collection. Decreased range of motion is noted. Extremities: No clubbing, cyanosis noted. [ No edema noted.] Upper extremity pulses 2+. Lower extremity pulses 2+. Capillary refill less than 3 seconds. Skin: No unusual lesions or rashes. No skin breakdown appreciated. Neuro: Awake, alert and oriented 3. Moves all extremities well without hemiparesis or paralysis. No essential tremor is appreciated. Result/EKG - Labs CBC & BMP: 05/17/17 08:56 05/17/17 06:42 Lab Results: I have reviewed the past 24 hour labs Labs: Laboratory Results - last 24 hr 05/16/17 05/16/17 05/16/17 22:02 22:30 22:30 WBC 6.7 RBC 6.94 H Hgb 20.4 H* Hct 57.7 H MCV 83.1 L MCH 29 MCHC 35.4 RDW 13.2 Plt Count 129 L MPV 13.2 H Neut % (Auto) 57.2 Lymph % (Auto) 32.1 Wells % (Auto) 8.9 Eos % (Auto) 0.9 Baso % (Auto) 0.6 Neut # (Auto) 3.9 Lymph # (Auto) 2.2 Wells # (Auto) 0.6 Eos # (Auto) 0.1 Baso # (Auto) 0.0 Total Counted Immature Gran % 0.3 Nucleated RBC % 0.0 Immature Gran # 0.02 Segmented Neutrophils Band Neutrophils Lymphocytes Monocytes Nucleated RBCs # 0.00 Platelet Estimate Adequate Hypochromasia Anisocytosis Doll Surgeon Morphology Comment Sodium 138 Potassium 3.6 Chloride 100 Carbon Dioxide 28 Anion Gap 13.6 BUN 21 H Creatinine 1.40 H GFR Calculation 62 BUN/Creatinine Ratio 15.00 Glucose 198 H POC Glucose 202 H Calculated Osmolality 283.7 Lactic Acid 2.1 H Calcium 10.0 Magnesium Total Bilirubin 0.90 AST 18 ALT 30 Alkaline Phosphatase 117 Total Creatine Kinase CK-MB (CK-2) Troponin I 0.986 H Total Protein 7.5 Albumin 4.3 Globulin 3.2 Albumin/Globulin Ratio 1.3 Lipase 211.0 Urine Color Urine Appearance Urine pH Ur Specific [place] Urine Protein Urine Glucose (UA) Urine Ketones Urine Blood Urine Nitrate Urine Bilirubin Urine Urobilinogen Urine Leukocytes Urine RBC Urine WBC Ur Culture Indicated? 05/17/17 05/17/17 05/17/17 00:00 06:26 06:42 WBC 23.9 H D RBC 6.28 H Hgb 18.6 H Hct 52.4 H MCV 83.4 L MCH 30 MCHC 35.5 RDW 13.0 Plt Count 143 MPV 12.1 H Neut % (Auto) 87.5 H Lymph % (Auto) 3.1 L Wells % (Auto) 8.6 Eos % (Auto) 0.0 Baso % (Auto) 0.5 Neut # (Auto) 20.9 H Lymph # (Auto) 0.7 L Wells # (Auto) 2.1 H Eos # (Auto) 0.0 Baso # (Auto) 0.1 Total Counted 100 Immature Gran % 0.3 Nucleated RBC % 0.0 Immature Gran # 0.08 Segmented Neutrophils 82 Band Neutrophils 7 Lymphocytes 4 L Monocytes 7 Nucleated RBCs # 0.00 Platelet Estimate Normal Hypochromasia 1+ Anisocytosis Morphology Comment Sodium Potassium Chloride Carbon Dioxide Anion Gap BUN Creatinine GFR Calculation BUN/Creatinine Ratio Glucose POC Glucose 215 H Calculated Osmolality Lactic Acid Calcium Magnesium Total Bilirubin AST ALT Alkaline Phosphatase Total Creatine Kinase CK-MB (CK-2) Troponin I Total Protein Albumin Globulin Albumin/Globulin Ratio Lipase Urine Color Yellow Urine Appearance Clear Urine pH 6.0 Ur Specific [place] 1.046 H Urine Protein 100 Urine Glucose (UA) 150 Urine Ketones 20 Urine Blood Negative Urine Nitrate Negative Urine Bilirubin Negative Urine Urobilinogen < 2.0 H Urine Leukocytes Negative Urine RBC 1 Urine WBC 1 Ur Culture Indicated? Not indicated 05/17/17 05/17/17 06:42 08:56 WBC 23.3 H RBC 6.16 H Hgb 17.9 Hct 51.3 MCV 83.3 L MCH 29 MCHC 34.9 RDW 13.2 Plt Count 156 MPV 12.6 H Neut % (Auto) 89.2 H Lymph % (Auto) 3.0 L Wells % (Auto) 7.1 Eos % (Auto) 0.0 Baso % (Auto) 0.3 Neut # (Auto) 20.8 H Lymph # (Auto) 0.7 L Wells # (Auto) 1.6 H Eos # (Auto) 0.0 Baso # (Auto) 0.1 Total Counted 100 Immature Gran % 0.4 Nucleated RBC % 0.0 Immature Gran # 0.10 Segmented Neutrophils 88 H Band Neutrophils 2 Lymphocytes 3 L Monocytes 7 Nucleated RBCs # 0.00 Platelet Estimate Normal Hypochromasia Anisocytosis Morphology Comment Sodium 138 Potassium 3.9 Chloride 105 Carbon Dioxide 25 Anion Gap 11.9 BUN 15 Creatinine 1.10 GFR Calculation 84 BUN/Creatinine Ratio 13.00 Glucose 238 H POC Glucose Calculated Osmolality 283.7 Lactic Acid Calcium 8.9 Magnesium 2.1 Total Bilirubin AST ALT Alkaline Phosphatase Total Creatine Kinase 82 CK-MB (CK-2) 3.9 H Troponin I 0.974 H Total Protein Albumin Globulin Albumin/Globulin Ratio Lipase Urine Color Urine Appearance Urine pH Ur Specific [place] Urine Protein Urine Glucose (UA) Urine Ketones Urine Blood Urine Nitrate Urine Bilirubin Urine Urobilinogen Urine Leukocytes Urine RBC Urine WBC Ur Culture Indicated? - Diagnostic Findings Procedure: Chest x-ray: report reviewed by me, CT: report reviewed by me - EKG EKG results: interpreted by me EKG shows: sinus rhythm <Aisha Godinez - Last Filed: 05/17/17 11:51> History of Present Illness - Consult Narrative History of present illness: I have personally interviewed and evaluated the patient, reviewed the chart and discussed medical decision-making with Practitioner Carlitos. I have read this note and agree with her documentation here in. It is unclear to me why the troponins were initially drawn, I believe this may have been as a screening process from the emergency room. He clinically does not appear to be having an acute coronary syndrome. I believe the bradycardia will be easily managed by decreasing or discontinuing the beta-tracie. His EKG is abnormal, consistent with left ventricular hypertrophy. We will get an echocardiogram to rule out other pathology. He has some ongoing chronic symptoms that do include some atypical chest discomfort and some dyspnea, and he can get that worked up as an outpatient. CC: Michel Martins MD Physical Examination Vital Signs Temp Pulse Resp BP Pulse Ox 98.7 F 40 L 18 229/101 99 05/16/17 22:00 05/16/17 22:00 05/16/17 22:00 05/16/17 22:00 05/16/17 22:00 Result/EKG - Labs CBC & BMP: 05/17/17 08:56 05/17/17 06:42 Labs: Laboratory Results - last 24 hr 05/16/17 05/16/17 05/16/17 22:02 22:30 22:30 WBC 6.7 RBC 6.94 H Hgb 20.4 H* Hct 57.7 H MCV 83.1 L MCH 29 MCHC 35.4 RDW 13.2 Plt Count 129 L MPV 13.2 H Neut % (Auto) 57.2 Lymph % (Auto) 32.1 Wells % (Auto) 8.9 Eos % (Auto) 0.9 Baso % (Auto) 0.6 Neut # (Auto) 3.9 Lymph # (Auto) 2.2 Wells # (Auto) 0.6 Eos # (Auto) 0.1 Baso # (Auto) 0.0 Total Counted Immature Gran % 0.3 Nucleated RBC % 0.0 Immature Gran # 0.02 Segmented Neutrophils Band Neutrophils Lymphocytes Monocytes Nucleated RBCs # 0.00 Platelet Estimate Adequate Hypochromasia Anisocytosis Doll Surgeon Morphology Comment Sodium 138 Potassium 3.6 Chloride 100 Carbon Dioxide 28 Anion Gap 13.6 BUN 21 H Creatinine 1.40 H GFR Calculation 62 BUN/Creatinine Ratio 15.00 Glucose 198 H POC Glucose 202 H Calculated Osmolality 283.7 Lactic Acid 2.1 H Calcium 10.0 Magnesium Total Bilirubin 0.90 AST 18 ALT 30 Alkaline Phosphatase 117 Total Creatine Kinase CK-MB (CK-2) Troponin I 0.986 H Total Protein 7.5 Albumin 4.3 Globulin 3.2 Albumin/Globulin Ratio 1.3 Lipase 211.0 Urine Color Urine Appearance Urine pH Ur Specific [place] Urine Protein Urine Glucose (UA) Urine Ketones Urine Blood Urine Nitrate Urine Bilirubin Urine Urobilinogen Urine Leukocytes Urine RBC Urine WBC Ur Culture Indicated? 05/17/17 05/17/17 05/17/17 00:00 06:26 06:42 WBC 23.9 H D RBC 6.28 H Hgb 18.6 H Hct 52.4 H MCV 83.4 L MCH 30 MCHC 35.5 RDW 13.0 Plt Count 143 MPV 12.1 H Neut % (Auto) 87.5 H Lymph % (Auto) 3.1 L Wells % (Auto) 8.6 Eos % (Auto) 0.0 Baso % (Auto) 0.5 Neut # (Auto) 20.9 H Lymph # (Auto) 0.7 L Wells # (Auto) 2.1 H Eos # (Auto) 0.0 Baso # (Auto) 0.1 Total Counted 100 Immature Gran % 0.3 Nucleated RBC % 0.0 Immature Gran # 0.08 Segmented Neutrophils 82 Band Neutrophils 7 Lymphocytes 4 L Monocytes 7 Nucleated RBCs # 0.00 Platelet Estimate Normal Hypochromasia 1+ Anisocytosis Morphology Comment Sodium Potassium Chloride Carbon Dioxide Anion Gap BUN Creatinine GFR Calculation BUN/Creatinine Ratio Glucose POC Glucose 215 H Calculated Osmolality Lactic Acid Calcium Magnesium Total Bilirubin AST ALT Alkaline Phosphatase Total Creatine Kinase CK-MB (CK-2) Troponin I Total Protein Albumin Globulin Albumin/Globulin Ratio Lipase Urine Color Yellow Urine Appearance Clear Urine pH 6.0 Ur Specific [place] 1.046 H Urine Protein 100 Urine Glucose (UA) 150 Urine Ketones 20 Urine Blood Negative Urine Nitrate Negative Urine Bilirubin Negative Urine Urobilinogen < 2.0 H Urine Leukocytes Negative Urine RBC 1 Urine WBC 1 Ur Culture Indicated? Not indicated 05/17/17 05/17/17 05/17/17 06:42 08:56 11:17 WBC 23.3 H RBC 6.16 H Hgb 17.9 Hct 51.3 MCV 83.3 L MCH 29 MCHC 34.9 RDW 13.2 Plt Count 156 MPV 12.6 H Neut % (Auto) 89.2 H Lymph % (Auto) 3.0 L Wells % (Auto) 7.1 Eos % (Auto) 0.0 Baso % (Auto) 0.3 Neut # (Auto) 20.8 H Lymph # (Auto) 0.7 L Wells # (Auto) 1.6 H Eos # (Auto) 0.0 Baso # (Auto) 0.1 Total Counted 100 Immature Gran % 0.4 Nucleated RBC % 0.0 Immature Gran # 0.10 Segmented Neutrophils 88 H Band Neutrophils 2 Lymphocytes 3 L Monocytes 7 Nucleated RBCs # 0.00 Platelet Estimate Normal Hypochromasia Anisocytosis Morphology Comment Sodium 138 Potassium 3.9 Chloride 105 Carbon Dioxide 25 Anion Gap 11.9 BUN 15 Creatinine 1.10 GFR Calculation 84 BUN/Creatinine Ratio 13.00 Glucose 238 H POC Glucose 233 H Calculated Osmolality 283.7 Lactic Acid Calcium 8.9 Magnesium 2.1 Total Bilirubin AST ALT Alkaline Phosphatase Total Creatine Kinase 82 CK-MB (CK-2) 3.9 H Troponin I 0.974 H Total Protein Albumin Globulin Albumin/Globulin Ratio Lipase Urine Color Urine Appearance Urine pH Ur Specific [place] Urine Protein Urine Glucose (UA) Urine Ketones Urine Blood Urine Nitrate Urine Bilirubin Urine Urobilinogen Urine Leukocytes Urine RBC Urine WBC Ur Culture Indicated?
[2017-05-17] MEDS: amLODIPine 5 MG TABLET PO SCH (11:58)
[2017-05-17] MEDS: INSULIN LISPRO 100 UNIT/ML SUBCUT SCH ×3 (11:58→21:08)
--- NOTE | 2017-05-17 12:40 | Event Note ---
General Surgery Progress Note Chief complaint This patient is a 61-year-old man admitted with a perforated duodenal ulcer that was treated with robotic assisted laparoscopic closure of duodenal ulcer with Richie patch with falciform pedicle on 05/17/2017 Interval history The patient is doing well this morning. He denies any chest pain and his troponin is basically the same was slightly downtrending. He feels much better after his operation. Hemoglobin is stable with still slightly hemoconcentrated. White blood cell count is up to about 23,000. [place] drain appears serous and there is minimal NG tube output. Patient has not gotten up and walked around yet. Pain is well controlled with current pain regimen. Physical exam The patient is afebrile with normal vital signs Chest is clear Heart is regular Abdomen is soft and nondistended. Appropriately tender. [place] drain has serous fluid output. Bowel sounds are hypoactive. Extremities with no edema Labs Reviewed, as above Imaging None new Assessment and plan Remove NG tube today Clear liquid diet as tolerated Begin activity advancement and walking in the hallway DVT chemoprophylaxis and SCDs Incentive spirometry Hospitalist consult for uncontrolled hypertension and elevated troponin
--- NOTE | 2017-05-17 14:20 | ECHO Report ---
[facility]jas Exam Date: 05/17/2017 11:09 Referring Physician: Technologist: chandrika Gray ARDMS, RVT Age: 61 Ht (in): 63 Wt (lb): 151 Gender: M Exam Location: [facility] Echo Indications: Essential (primary) hypertension, Cardiac dysrythmia, Elevated troponin, Diabetes, Epigastric pain, Surgical abd., Bradycardia BP: 198 / 93 HR: 61 Rhythm: Sinus Technical Quality: Good IMPRESSIONS Moderate left ventricular hypertrophy. EF 50-55 %. Grade II/IV diastolic dysfunction, moderately elevated filling pressures. Normal right ventricular size and systolic function. The right atrium is mildly enlarged. The left atrium is mildly enlarged. Mitral valve sclerosis. No mitral valve regurgitation. Aortic valve sclerosis. No aortic valve regurgitation. Mild tricuspid valve regurgitation. PAP 35-40 mmHg. Mild pulmonary valve regurgitation. Normal pericardium without effusion. Normal ascending aorta dimension. MEASUREMENTS (Male / Female) Normal Values 2D ECHO LV Diastolic Diameter PLAX 6.1 cm 4.2 - 5.9 / 3.9 - 5.3 cm LV Systolic Diameter PLAX 4.3 cm LV Fractional Shortening PLAX 29.2 % IVS Diastolic Thickness 1.8 cm 0.6 - 1.0 / 0.6 - 0.9 cm LVPW Diastolic Thickness 1.8 cm 0.6 - 1.0 / 0.6 - 0.9 cm RV Internal Dim ED PLAX 4.2 cm Aortic Root Diameter 3.2 cm LA Systolic Diameter LX 4.3 cm 3.0 - 4.0 / 2.7 - 3.8 cm FINDINGS Left Ventricle Moderate left ventricular hypertrophy. EF 50-55 %. Grade II/IV diastolic dysfunction, moderately elevated filling pressures. Right Ventricle Normal right ventricular size and systolic function. Right Atrium The right atrium is mildly enlarged. Left Atrium The left atrium is mildly enlarged. Mitral Valve Mitral valve sclerosis. No mitral valve regurgitation. Aortic Valve Aortic valve sclerosis. No aortic valve regurgitation. Tricuspid Valve Morphologically normal tricuspid valve. Mild tricuspid valve regurgitation. PAP 35-40 mmHg. Pulmonic Valve Morphologically normal pulmonic valve. Mild pulmonary valve regurgitation. Pericardium Normal pericardium without effusion. Aorta Normal ascending aorta dimension. Ag Alice (Electronically Signed) Final Date: 17 May 2017 14:18
[2017-05-17] MEDS: ENOXAPARIN 40 MG/0.4 ML SYRINGE SUBCUT SCH (21:08)
[2017-05-17] MEDS: LISINOPRIL 5 MG TABLET PO SCH (21:08)
[2017-05-18] MEDS: LACTATED RINGERS 1,000 ML IV SCH (03:44)
[2017-05-18 05:16] LABS: Basophils % 0.2 % (0.0-0.8); Eosinophils % 0.2 % (0.00-10.9); Hematocrit 34.9 VOL% (42.0-52.0); Hemoglobin 11.9 GM/DL (14.0-18.0); Immature Granulocytes % 0.5 %; Immature Granulocytes Absolute 0.06 #; Lymphocytes # 1.4 10*3/uL (1.4-4.0); Lymphocytes % 11.3 % (21.2-54.2); Mean Corpuscular HGB Conc 34.1 GM/DL (32-36); Mean Corpuscular Hemoglobin 29 PG (27-34); Mean Corpuscular Volume 84.9 FL (87-102); Mean Platelet Volume 13.4 FL (9.6-12.0); Monocytes # 1.6 10*3/uL (0.11-0.8); Monocytes % 12.4 % (1.7-12.7); Neutrophils # 9.6 10*3/uL (1.4-7.4); Neutrophils % 75.4 % (38.7-73.9); Platelet Count 103 T/CUMM (130-400); Red Blood Count 4.11 MC/CUMM (3.8-5.5); Red Cell Distribution Width 13.3 % (9.3-17.3); White Blood Count 12.7 T/CUMM (4-12)
[2017-05-18 05:54] LABS: Calcium 8.2 MG/DL (8.5-10.1); Osmolality,Calculated 275.7 MOS/KG (273-304); Potassium 4.2 MMOL/L (3.5-5.1)
[2017-05-18 05:58] LABS: Calcium 8.4 MG/DL (8.5-10.1); Magnesium 2.4 MG/DL (1.8-2.4); Osmolality,Calculated 275.7 MOS/KG (273-304); Potassium 4.3 MMOL/L (3.5-5.1); Risk Ratio 2.42; VLDL CHOLESTEROL 12.4 MG/DL
[2017-05-18] MEDS ORDERED: LACTATED RINGERS 1,000 ML IV ONE (07:21)
--- NOTE | 2017-05-18 07:29 | EKG Report ---
Stationary ECG Study [facility] Test Date: 05/18/2017 7:28:09 AM Pat Name: LOLIS BLANTON Department: Room: 343 Gender: M Pulmonologist Intensivist: KAYLA : 1955 Requested by: Grace Hines Order Number: [id number] Reading MD: CARMEN COHEN Intervals Phillips Rate: 50 P: 2 VT: 137 QRS: 73 QRSD: 89 T: -77 QT: 489 QTc: 463 Interpretive Statements SINUS BRADYCARDIA@50BPM; PRWP; LEFT VENTRICULAR HYPERTROPHY AND ST-T CHANGE Electronically Signed On 05-18-17 10:04:19 CDT by CARMEN COHEN [email or web address]
--- NOTE | 2017-05-18 08:22 | Event Note ---
General Surgery Progress Note Chief complaint This patient is a 61-year-old man admitted with a perforated duodenal ulcer that was treated with robotic assisted laparoscopic closure of duodenal ulcer with Richie patch with falciform pedicle on 05/17/2017 Interval history No events overnight. Patient is having a large amount of serosanguineous output from his [place] drain. It is full this morning. He has not gotten up and walked in the hallway. He tolerated some clear liquids but feels like is getting full very easily. No nausea or vomiting. Urine is very concentrated but the volume is adequate and the creatinine is stable today. White blood cell count has come down to 12,000 today. The patient is also having a little bit more midepigastric tenderness today. Physical exam The patient is afebrile with normal vital signs Chest is clear Heart is regular Abdomen is soft and nondistended. Appropriately tender. [place] drain has serous fluid output large-volume. Bowel sounds are hypoactive. Extremities with no edema Labs Reviewed, as above Imaging None new Assessment and plan Gastrografin upper GI through the duodenum today for increased pain and fullness with liquids Increase activity and walking in the hallway DVT chemoprophylaxis and SCDs Incentive spirometry
[2017-05-18] MEDS: INSULIN LISPRO 100 UNIT/ML SUBCUT SCH ×4 (09:22→20:34)
--- NOTE | 2017-05-18 09:59 | Fluoroscopy Report ---
Exam: [place] upper GI series single contrast study Date: 05/18/2017 7:34 AM Indication: Duodenal perforation postop Comparison: None Findings: 2 minutes fluoroscopy time and 61 images were obtained. Gastrografin was administered. Evaluation of the esophagus reveals normal peristalsis contracted of the and distensibility are present. There are some tertiary contractions in the distal esophagus. Vallecular and piriform recess are normal. The stomach reveals mildly thickened gastric mucosal folds. The duodenal reveals no obvious extravasation of contrast the C-loop is intact. 15 minute delayed images were obtained. Drain is present in the abdomen. Previous intrapedicular screws stabilizing bars and rods at L4-5 S1 bilaterally. Impression: 1. No obvious extravasation of contrast present. 2. Surgical drain is catheter in place and previous intrapedicular screws. PROCEDURE INTERPRETED AT [facility] DEPARTMENT OF RADIOLOGY Final Report Signed by: Dr. Fawad Diaz
[2017-05-18] MEDS: LISINOPRIL 5 MG TABLET PO SCH ×2 (10:50→20:19)
[2017-05-18] MEDS: ATENOLOL 25 MG TABLET PO SCH (10:50)
[2017-05-18] MEDS: CLARITHROMYCIN 500 MG TABLET PO SCH ×2 (10:51→20:19)
[2017-05-18] MEDS: AMOXICILLIN 500 MG CAPSULE PO SCH ×2 (10:51→20:20)
[2017-05-18] MEDS: amLODIPine 5 MG TABLET PO SCH (10:51)
[2017-05-18] MEDS: ASPIRIN CHEW 81 MG TABLET PO SCH (10:51)
[2017-05-18] MEDS: PANTOPRAZOLE 40 MG VIAL IV SCH ×2 (10:53→20:20)
[2017-05-18] MEDS: hydrALAZINE 20 MG/1 ML VIAL IV PRN (12:31)
[2017-05-18] MEDS: DEXT 5% NACL 0.45% KCL 40 MEQ 40 MEQ/1,000 ML BAG IV SCH ×3 (12:38→21:20)
--- NOTE | 2017-05-18 12:58 | Hospitalist Progress Note ---
Assessment and Plan - Time spent with patient Time spent with patient: Greater than 30 minutes (1) Status post duodenal ulcer repair Status: Acute Assessment and plan: Stable with recent GI series showing no evidence of extravasation. Continue antibiotics, his leukocytosis is improving. Current Visit: Yes (2) Diabetes Status: Chronic Assessment and plan: Continue current management blood sugars between 130s and 230s. Current Visit: Yes (3) Hypertension Status: Chronic Assessment and plan: Blood pressures are in the 170s-180s systolics. Cardiology is managing. Current Visit: Yes (4) Elevated troponin Status: Acute Assessment and plan: Defer to GI. Current Visit: Yes Hospitalist: Subjective Interval history: Patient had abdominal pain this morning and currently states his pain is doing much better. He had a gastro-rakel GI series which returned negative for any extravasation of contrast. Exam - Constitutional Vitals: Period Temp Pulse Resp BP Sys/Frias Pulse Ox Last 24 Hr 98.2 F-99.0 F 56-61 16-18 170-195/69-93 94-100 General appearance: no acute distress - Head Head exam: Present: normocephalic, atraumatic - Eye Eye exam: Present: EOMI Pupils: Present: MALACHI - ENT ENT exam: Present: normal exam - Neck Neck exam: Present: normal inspection - Respiratory Respiratory exam: Present: clear to auscultation bilaterally. Absent: rhonchi, wheezes - Cardiovascular Cardiovascular exam: Present: regular rate and rhythm. Absent: gallop, rubs, systolic murmur - GI/Abdominal GI/Abdominal exam: Present: normal bowel sounds, distended (Mild distention, right side FRANCE drain), tenderness (Mild diffuse tenderness), soft. Absent: firm , guarding, rebound - Extremities Exam Extremities exam: Present: normal inspection. Absent: calf tenderness, edema Results - Labs CBC & BMP: 05/18/17 04:38 05/18/17 04:39 Lab Results: I have reviewed the past 24 hour labs
--- NOTE | 2017-05-18 15:05 | Cardiology Progress Note ---
Carla Nunes April RN, am scribing for, and in the presence of, Aisha Godinez MD 15:04. 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 DR. GODINEZ seeing during this admission. SUMMARY: Mr. Riojas, 61BM, is followed by highway research engineer in [place], [place] for slow heart rate. Name of highway research engineer is unknown and it has been several years since Mr. Riojas has followed up. Risk factors include: hypertension, diabetes, marijuana use, sedentary lifestyle. Patient was admitted May 16, 2017 with perforated duodenal bulb ulcer with peritonitis, and underwent surgical correction. While in the emergency department, EKG was obtained which revealed a sinus bradycardia with inverted T waves. Of note, patient does take atenolol 100 mg orally twice daily. Troponin was mildly elevated but not peaking, 0.986 -0.974. Patient denied having chest pain. He denies history of stress test or cardiac catheterization. Patient reports he is chronically short of breath with exertion and this is unchanged over a period of years. Reports he has chest pain, usually after a meal and relieved with antiacid. 05/18/2017: Mr. Riojas is seen resting in bed no acute distress. He is day 1 status post laparoscopic repair of duodenal perforation. Abdominal dressing to be dry and intact with FRANCE drain noted. He denies any chest pain, only complains of abdominal discomfort. Oxygen is in use via nasal cannula and he denies any shortness of breath. Atenolol 25 mg daily has been restarted. EKG this morning showed sinus bradycardia with heart rate of 50. Norvasc 5 mg daily and lisinopril 5 mg twice daily have been added to his medicine regimen and his pressures have improved. Blood pressure this morning 180/81. Echocardiogram done yesterday with ejection fraction of 50-55%. ASSESSMENT/PLAN: 1. BRADYCARDIA - resolved with holding of betablocker. Maintained on low dose betablocker for now as he may experience rebound tachycardia. 2. ELEVATED TROPONIN - flat. Without complaints of chest chest pain. May benefit from outpatient stress test once recovered from surgery. 3. HYPERTENSION - adjusting medications for better control. 4. DIABETES -chronic, stable. 5. ABNORMAL EKG - sinus bradycardia, LVH pattern. 6. PERFORATED GASTRIC ULCER -status post surgical correction. Exam (Progress Note) - Constitutional Vitals: Period Temp Pulse Resp BP Sys/Frias Pulse Ox Last 24 Hr 97.9 F-99.0 F 53-61 16-18 170-198/69-93 94-100 Exam: General: [Appears well with no apparent distress.] [Pleasant and cooperative. ] [Appears comfortable.] HEENT: [Normocephalic, atraumatic. Mucous membranes moist. No jaundice noted. Conjunctiva moist and clear, sclerae anicteric] Neck: No JVD/HJR, no thyromegaly or lymphadenopathy noted. No carotid bruit appreciated Cardiac: Regular rate and rhythm. No obvious murmur rub or gallop. Bradycardia. Lungs: [Clear to auscultation without accessory muscle use to assist the respiratory pattern.] Using oxygen intermittently Abdomen: Soft, bowel sounds normoactive. Slight distention, FRANCE drain intact without discharge. Small amount of serosanguineous fluid noted in bulb. Dressing dry and intact. No masses noted. Musculoskeletal: No fluid collection. Decreased range of motion is noted. Extremities: No clubbing, cyanosis noted. [ No edema noted.] Upper extremity pulses 2+. Lower extremity pulses 2+. Capillary refill less than 3 seconds. Skin: No unusual lesions or rashes. No skin breakdown appreciated. Neuro: Awake, alert and oriented 3. Moves all extremities well without hemiparesis or paralysis. No essential tremor is appreciated. Result/EKG - Labs CBC & BMP: 05/18/17 04:38 05/18/17 04:39 Lab Results: I have reviewed the past 24 hour labs Labs: Laboratory Results - last 24 hr 05/17/17 05/17/17 05/17/17 08:56 11:17 16:15 WBC 23.3 H RBC 6.16 H Hgb 17.9 Hct 51.3 MCV 83.3 L MCH 29 MCHC 34.9 RDW 13.2 Plt Count 156 MPV 12.6 H Neut % (Auto) 89.2 H Lymph % (Auto) 3.0 L Charles % (Auto) 7.1 Eos % (Auto) 0.0 Baso % (Auto) 0.3 Neut # (Auto) 20.8 H Lymph # (Auto) 0.7 L Charles # (Auto) 1.6 H Eos # (Auto) 0.0 Baso # (Auto) 0.1 Total Counted 100 Immature Gran % 0.4 Nucleated RBC % 0.0 Immature Gran # 0.10 Segmented Neutrophils 88 H Band Neutrophils 2 Lymphocytes 3 L Monocytes 7 Nucleated RBCs # 0.00 Platelet Estimate Normal Morphology Comment Sodium Potassium Chloride Carbon Dioxide Anion Gap BUN Creatinine GFR Calculation BUN/Creatinine Ratio Glucose POC Glucose 233 H 152 H Calculated Osmolality Calcium Magnesium Triglycerides Cholesterol LDL Cholesterol VLDL Cholesterol HDL Cholesterol Heart Disease Risk Ratio 05/17/17 05/18/17 05/18/17 20:27 04:38 04:39 WBC 12.7 H D RBC 4.11 D Hgb 11.9 L D Hct 34.9 L MCV 84.9 L MCH 29 MCHC 34.1 RDW 13.3 Plt Count 103 L D MPV 13.4 H Neut % (Auto) 75.4 H Lymph % (Auto) 11.3 L Charles % (Auto) 12.4 Eos % (Auto) 0.2 Baso % (Auto) 0.2 Neut # (Auto) 9.6 H Lymph # (Auto) 1.4 Charles # (Auto) 1.6 H Eos # (Auto) 0.0 Baso # (Auto) 0.0 Total Counted Immature Gran % 0.5 Nucleated RBC % 0.0 Immature Gran # 0.06 Segmented Neutrophils Band Neutrophils Lymphocytes Monocytes Nucleated RBCs # 0.00 Platelet Estimate Morphology Comment Sodium 138 Potassium 4.3 Chloride 103 Carbon Dioxide 26 Anion Gap 13.3 BUN 14 Creatinine 1.00 GFR Calculation 94 BUN/Creatinine Ratio 14.00 Glucose 106 POC Glucose 146 H Calculated Osmolality 275.7 Calcium 8.4 L Magnesium 2.4 Triglycerides 62 Cholesterol 75 LDL Cholesterol 24.0 VLDL Cholesterol 12.4 HDL Cholesterol 31 L Heart Disease Risk Ratio 2.42 05/18/17 05/18/17 04:39 06:49 WBC RBC Hgb Hct MCV MCH MCHC RDW Plt Count MPV Neut % (Auto) Lymph % (Auto) Charles % (Auto) Eos % (Auto) Baso % (Auto) Neut # (Auto) Lymph # (Auto) Charles # (Auto) Eos # (Auto) Baso # (Auto) Total Counted Immature Gran % Nucleated RBC % Immature Gran # Segmented Neutrophils Band Neutrophils Lymphocytes Monocytes Nucleated RBCs # Platelet Estimate Morphology Comment Sodium 138 Potassium 4.2 Chloride 102 Carbon Dioxide 26 Anion Gap 14.2 BUN 14 Creatinine 1.00 GFR Calculation 94 BUN/Creatinine Ratio 14.00 Glucose 106 POC Glucose 134 H Calculated Osmolality 275.7 Calcium 8.2 L Magnesium Triglycerides Cholesterol LDL Cholesterol VLDL Cholesterol HDL Cholesterol Heart Disease Risk Ratio - EKG EKG results: interpreted by me EKG shows: bradycardia, sinus rhythm IHerbert Jennifer, MD, personally performed the services described in this documentation, ascribed by Jessica Aguirre RN in my presence, and it is both accurate and complete 504 .
[2017-05-18] MEDS: ENOXAPARIN 40 MG/0.4 ML SYRINGE SUBCUT SCH (20:20)
[2017-05-19] MEDS: hydrALAZINE 20 MG/1 ML VIAL IV PRN (01:14)
[2017-05-19 05:47] LABS: Calcium 8.1 MG/DL (8.5-10.1); Osmolality,Calculated 276.7 MOS/KG (273-304); Potassium 4.2 MMOL/L (3.5-5.1)
[2017-05-19] MEDS: ATENOLOL 25 MG TABLET PO SCH (09:36)
[2017-05-19] MEDS: INSULIN LISPRO 100 UNIT/ML SUBCUT SCH ×2 (09:36→13:35)
[2017-05-19] MEDS: PANTOPRAZOLE 40 MG VIAL IV SCH (09:36)
[2017-05-19] MEDS: LISINOPRIL 5 MG TABLET PO SCH (09:36)
[2017-05-19] MEDS: amLODIPine 5 MG TABLET PO SCH (09:37)
[2017-05-19] MEDS: CLARITHROMYCIN 500 MG TABLET PO SCH (09:37)
[2017-05-19] MEDS: ASPIRIN CHEW 81 MG TABLET PO SCH (09:37)
[2017-05-19] MEDS: AMOXICILLIN 500 MG CAPSULE PO SCH (09:37)
[2017-05-19 10:21] LABS: Basophils % 0.2 % (0.0-0.8); Eosinophils # 0.1 10*3/uL (0.0-0.87); Eosinophils % 0.7 % (0.00-10.9); Hematocrit 29.7 VOL% (42.0-52.0); Hemoglobin 10.1 GM/DL (14.0-18.0); Immature Granulocytes % 0.4 %; Immature Granulocytes Absolute 0.04 #; Lymphocytes # 1.3 10*3/uL (1.4-4.0); Lymphocytes % 13.8 % (21.2-54.2); Mean Corpuscular Hemoglobin 30 PG (27-34); Mean Corpuscular Volume 87.1 FL (87-102); Mean Platelet Volume 12.8 FL (9.6-12.0); Monocytes # 1.1 10*3/uL (0.11-0.8); Monocytes % 11.5 % (1.7-12.7); Neutrophils # 6.7 10*3/uL (1.4-7.4); Neutrophils % 73.4 % (38.7-73.9); Platelet Count 103 T/CUMM (130-400); Red Blood Count 3.41 MC/CUMM (3.8-5.5); Red Cell Distribution Width 13.4 % (9.3-17.3); White Blood Count 9.1 T/CUMM (4-12)
[2017-05-19 11:01] VITALS: BP 187/85
--- NOTE | 2017-05-19 11:12 | Discharge Summary ---
Hospital Course - Hospital Course Hospital Course: Mr. Riojas is a 61-year-old -[place] male with history of gastric ulcer disease, hypertension, and diabetes admitted by Dr. Martins on 05/16/2017 with an acute onset of midepigastric abdominal pain. CT scan showed free air and fluid in his troponins were mildly elevated. Patient was taken to the OR on 2016 for robotic assisted laparoscopic repair of duodenal perforation with primary closure and Richie patch with falciform ligament and found to have a perforated duodenal bulb ulcer with peritonitis. Postoperatively patient has done very well. The hospitalist has followed him for his blood sugars and hypertension. Cardiology got involved Due to his uncontrolled hypertension, bradycardia and elevated troponins. Patient's current dosage of beta-tracie were held and and low-dose beta-tracie was added. His troponins were flat without complaints of chest pain and cardiology recommended an outpatient stress test once recovered from surgery. Patient is followed by a mutual funds agent in [place] and he will need to follow-up with him within the month. His medicines have been adjusted. 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 He will need to follow-up with Dr. Martins in 1 week. Care coordination, chart review, and completed discharge paperwork took approximately 35 minutes. - Time spent with patient Time with patient DS: Greater than 30 minutes Diagnosis - Discharge Diagnosis (1) Status post duodenal ulcer repair Status: Resolved (2) Hypertension Status: Chronic (3) Diabetes Status: Chronic (4) History of cardiac dysrhythmia Status: Chronic (5) Elevated troponin Status: Resolved Discharge Plan - Discharge Data Disposition: Disch To Home/Self Care Condition at Discharge: Stable Discharge Diet: diabetic diet, heart healthy Activity: increase activity as tolerated, no lifting Hygiene: may shower Driving: other (no driving if taking pain pills) Contact your physician if you experience:: fever over 101, Nausea/Vomiting Wound / Dressing Care Instructions: ok to shower daily w mild soap and water, pat dry. ok to leave open to the air or cover prn w bandaids. - Discharge Medications New Clarithromycin [Biaxin] 500 mg PO Q12HR #28 tablet Meperidine Tab [Demerol Tab] 50 mg PO Q4H #30 tablet Pantoprazole Tab [Protonix Tab] 40 mg PO BID #90 tablet Amoxicillin Cap/Tab 1,000 mg PO Q12HR #28 capsule Atenolol [Tenormin] 25 mg PO DAILY #30 tablet Lisinopril [Prinivil] 20 mg PO BID #60 tablet Continue metFORMIN [Glucophage] 500 mg PO DAILY W/BREAKFAST Aspirin 81 mg PO DAILY Discontinued Ranitidine Tab [Zantac Tab] 75 mg PO DAILY Atenolol 100 mg PO BID - Follow Up or Referral Follow Up: Michel Martins MD [Physician] - 1 Week your, mutual funds agent [Other] - 2 Weeks - Forms/Instructions Exam - Constitutional Vitals: Period Temp Pulse Resp BP Sys/Frias Pulse Ox Last 24 Hr 96.8 F-99.0 F 56-94 18-20 156-220/72-110 94-99 Exam: 61-year-old -Cam[place] male, no acute distress, alert and oriented Chest clear CV regular rate and rhythm Abdomen soft and appropriately tender, incisions look good Extremities no edema Discharge Results Procedures and tests throughout hospitalization: Pending Orders 05/16/17 22:39 XR abdomen 1V Stat 05/20/17 04:00 BMP w/ Mg [Basic Metabolic Panel w/Mg] IN AM Labs on day of discharge: Labs from last 24 hours 05/19/17 05/19/17 05/19/17 09:46 07:15 04:55 WBC 9.1 RBC 3.41 L Hgb 10.1 L Hct 29.7 L MCV 87.1 MCH 30 MCHC 34.0 RDW 13.4 Plt Count 103 L MPV 12.8 H Neut % (Auto) 73.4 Lymph % (Auto) 13.8 L [place] % (Auto) 11.5 Eos % (Auto) 0.7 Baso % (Auto) 0.2 Neut # (Auto) 6.7 Lymph # (Auto) 1.3 L [place] # (Auto) 1.1 H Eos # (Auto) 0.1 Baso # (Auto) 0.0 Immature Gran % 0.4 Nucleated RBC % 0.0 Immature Gran # 0.04 Nucleated RBCs # 0.00 Sodium 138 Potassium 4.2 Chloride 104 Carbon Dioxide 27 Anion Gap 11.2 BUN 8 Creatinine 0.90 GFR Calculation 106 BUN/Creatinine Ratio 8.00 Glucose 175 H POC Glucose 188 H Calculated Osmolality 276.7 Calcium 8.1 L Magnesium 2.0 05/18/17 05/18/17 05/18/17 19:08 15:35 11:20 WBC RBC Hgb Hct MCV MCH MCHC RDW Plt Count MPV Neut % (Auto) Lymph % (Auto) [place] % (Auto) Eos % (Auto) Baso % (Auto) Neut # (Auto) Lymph # (Auto) [place] # (Auto) Eos # (Auto) Baso # (Auto) Immature Gran % Nucleated RBC % Immature Gran # Nucleated RBCs # Sodium Potassium Chloride Carbon Dioxide Anion Gap BUN Creatinine GFR Calculation BUN/Creatinine Ratio Glucose POC Glucose 144 H 199 H 162 H Calculated Osmolality Calcium Magnesium DS: Provider Date of admission: 05/17/17 03:11 Primary care physician: . No PCP Attending physician on admission: Michel Martins MD Consults: 05/17/17 04:55 Consult to Dietitian [CONS] Routine Reason for Dietitian: Dietary Consult 05/17/17 08:48 Consult to Physician [CONS] Routine Comment: uncontrolled hypertension/medical mgmt Consulting Provider: Yeimy Stratton Consulting Provider Notified: Yes When should Consulting Provider be notified: Now Person Notified: curt called Date Notified: 05/17/17 Time Notified: 08:58 05/17/17 10:00 Consult to Physician [CONS] Routine Comment: elev trop, abn ekg, postop pt Consulting Provider: Cardiology - [facility] Consulting Provider Notified: Yes When should Consulting Provider be notified: Now Person Notified: tray called Date Notified: 05/17/17 Time Notified: 13:46 Discharging clinician: KIRAN Pulido Expected date of discharge: 05/19/17
== END 2017-05-19 14:20 | disposition home or self-care (01) | DRG 329 ==
LOC: N.ED 21:54 → N.3E 05-17 01:45 → N.EDINP 05-17 03:11 → N.3E 05-17 04:26
PROVIDERS: ADMIT Surgery; ATTEND Surgery

== ENCOUNTER 2017-05-21 17:10 | Inpatient (IN) ==
[2017-05-21] MEDS ORDERED: MORPHINE 2 MG/1 ML SYRINGE IV STA (18:12)
[2017-05-21] MEDS ORDERED: ONDANSETRON 4 MG/2 ML VIAL IV STA ×2 (18:12→20:04)
[2017-05-21] MEDS ORDERED: SODIUM CHLORIDE 0.9% 1,000 ML IV STA (18:12)
[2017-05-21] MEDS ORDERED: MORPHINE 2 MG/1 ML SYRINGE ONE (18:19)
[2017-05-21] MEDS ORDERED: ONDANSETRON 4 MG/2 ML VIAL ONE ×2 (18:20→20:09)
[2017-05-21 18:29] LABS: Basophils % 0.1 % (0.0-0.8); Eosinophils # 0.1 10*3/uL (0.0-0.87); Eosinophils % 0.4 % (0.00-10.9); Hematocrit 27.4 VOL% (42.0-52.0); Hemoglobin 9.4 GM/DL (14.0-18.0); Immature Granulocytes Absolute 0.13 #; Lymphocytes # 1.4 10*3/uL (1.4-4.0); Mean Corpuscular HGB Conc 34.3 GM/DL (32-36); Mean Corpuscular Hemoglobin 30 PG (27-34); Mean Corpuscular Volume 86.4 FL (87-102); Mean Platelet Volume 11.9 FL (9.6-12.0); Monocytes # 1.2 10*3/uL (0.11-0.8); Monocytes % 8.5 % (1.7-12.7); Neutrophils # 10.9 10*3/uL (1.4-7.4); Red Blood Count 3.17 MC/CUMM (3.8-5.5)
[2017-05-21 18:38] LABS: Albumin 3.2 G/DL (3.4-5.0); Bilirubin,Total 0.7 MG/DL (0.2-1.0); Calcium 9.1 MG/DL (8.5-10.1); Magnesium 1.6 MG/DL (1.8-2.4); Potassium 3.5 MMOL/L (3.5-5.1); Total Protein 6.1 G/DL (6.4-8.3)
[2017-05-21 19:00] LABS: Platelet Count 227 T/CUMM (130-400)
[2017-05-21 19:03] LABS: White Blood Count 13.7 T/CUMM (4-12)
[2017-05-21 19:39] LABS: Lactic Acid 3.8 MMOL/L (0.4-2.0)
[2017-05-21] MEDS ORDERED: HYDROmorphone 2 MG/1 ML VIAL IV STA (20:04)
[2017-05-21] MEDS ORDERED: HYDROmorphone 2 MG/1 ML VIAL ONE (20:09)
--- NOTE | 2017-05-21 20:33 | CT Report ---
History: Abdominal pain and swelling with nausea and vomiting Date: 05/21/2017 Study: CT abdomen and pelvis with IV contrast and oral contrast Comparison exam: May 16, 2017 CT abdomen and pelvis Technique: Spiral CT sections were obtained from the lung bases to the pubic symphysis following oral contrast and 100 mL Omnipaque [address] exam was performed using one or more of the following dose reduction techniques: Automated exposure control, adjustment of the mA and/or kV according to patient size, or use of iterative reconstruction technique. Critical test result: Verbal report given to Dr. Bajwa at 8:[address] abdomen: The partially visualized lung bases are generally clear. There is no pleural or pericardial effusion. There is some ill-defined bandlike decreased density compatible with laceration involving the posterior inferior and superior margin of the lateral segment of the left lobe of the liver. There is a medium density opacity, thought to represent subcapsular hematoma, encircling and deforming the left lobe of liver, primarily the lateral segment, measuring at least 12 cm maximum diameter. There is mild perihepatic free fluid, with a small amount of free fluid in the paracolic gutters as well, right more than left. The gallbladder is normal in appearance. The spleen, pancreas, kidneys, and adrenal glands are unremarkable. There is no evidence of pneumoperitoneum. There is no aortic aneurysm. There is no jluis bowel obstruction. There is diverticulosis without jluis diverticulitis. CT pelvis: There is a mild to moderate amount of free fluid in the pelvis. There is no soft tissue mass in the pelvis. Pedicular screws stabilize the lumbosacral junction as before, with chronic grade 3 anterolisthesis of L5 with respect to S1. Impression: There is evidence of hepatic laceration involving the lateral segment of the left lobe the liver, both superiorly and inferiorly, with large associated subcapsular hematoma. Residual free fluid in the upper abdomen and pelvis PROCEDURE INTERPRETED AT [facility] DEPARTMENT OF RADIOLOGY Final Report Signed by: Dr. Jovita Benz
[2017-05-21] MEDS ORDERED: SODIUM CHLORIDE 0.9% 250 ML IV PRN (20:36)
[2017-05-21] MEDS ORDERED: ACETAMINOPHEN 325 MG TABLET PO PRN (20:38)
[2017-05-21] MEDS ORDERED: ONDANSETRON 4 MG/2 ML VIAL IV PRN (20:38)
[2017-05-21 20:39] LABS: Apearance,Urine CLEAR (Clear); Bilirubin,Urine Negative (Negative); Blood, Urine Negative (Negative); Glucose,Urine (UA) 150 mg/dL (Negative); Hyaline Casts,Urine 4 /LPF (0-3); Ketones,Urine Negative (Negative); Mucus,Urine Occasional /LPF (Occasional); Nitrite,Urine Negative (Negative); Protein,Urine 30 MG/DL; RBC,Urine 1 /HPF (0-4); Urine Color Yellow (Yellow); Urine Urobilinogen < 2.0 EU/DL (0.2-1.0); WBC,Urine 1 /HPF (0-6)
--- NOTE | 2017-05-21 20:41 | XRay Report ---
History: Abdominal pain Date: 05/21/2017 Study: KUB Comparison exam: No previous KUB There is contrast material within bowel from a CT scan performed earlier. There is no jluis bowel obstruction. There is enlargement of the hepatic shadow. Please refer to the CT scan report from the same day. Surgical hardware stabilizes the lumbosacral spine Impression: No jluis bowel obstruction. Enlargement of the hepatic shadow. Please refer to the CT scan abdomen from the same day PROCEDURE INTERPRETED AT [facility] DEPARTMENT OF RADIOLOGY Final Report Signed by: Dr. Jovita Benz
--- NOTE | 2017-05-21 21:02 | EKG Report ---
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
[2017-05-21] MEDS: DEXTROSE 5% NACL 0.45% 1,000 ML IV SCH (21:38)
--- NOTE | 2017-05-21 22:44 | Emergency Department Note ---
Aneesh Nunes Emily, am scribing for, and in the presence of, Toshia Bajwa MD 18:18 . Aydee Nunes Leanne, MD, personally performed the services described in this documentation, ascribed by Kelli Melendrez in my presence, and it is both accurate and complete . Arrival - Arrival Chief Complaint: Abdominal / Flank Pain Stated Complaint: chest pain ED Nursing Triage Note: PT COMPLAINS OF ABD PAIN WITH N/V, HAD SURGERY THIS PAST WEDNESDAY NIGHT Mode of Arrival: Ambulatory Limitations: No Limitations Source: Patient, Family - History of Present Illness HPI Narrative: Pt is a 61 y/o male who came to ED with c/o diffuse abdomen pain that started this morning. Pt has associated sxs of subjective fevers, distention in abdomen , chills, and some N/V. Pt states he had his first loose BM this morning, but was nml. Pt reports having an ulcer to rupture in right side of abdomen on Wednesday and had surgery then under supervision of Dr. Martins. Pt notes he hasn't had a pain or issue with abdomen until today. PMHx of HTN, NIDDM. Onset (ago): hour(s) Consistency: constant Severity: moderate Severity scale (1-10): 5 Quality: aching, fullness Allergies/Adverse Reactions: Allergies Allergy/AdvReac Type Severity Reaction Status Date / Time codeine Allergy Intermediate ITCHING Verified 05/21/17 17:19 Home Medications: Home Medications Medication Instructions Recorded Confirmed Type Aspirin 81 mg PO DAILY 05/16/17 05/21/17 History metFORMIN [Glucophage] 500 mg PO DAILY W/BREAKFAST 05/16/17 05/21/17 History Amoxicillin Cap/Tab 1,000 mg PO Q12HR #28 capsule 05/19/17 05/21/17 Rx Atenolol [Tenormin] 25 mg PO DAILY #30 tablet 05/19/17 05/21/17 Rx Clarithromycin [Biaxin] 500 mg PO Q12HR #28 tablet 05/19/17 05/21/17 Rx Lisinopril [Prinivil] 20 mg PO BID #60 tablet 05/19/17 05/21/17 Rx Meperidine Tab [Demerol Tab] 50 mg PO Q4H #30 tablet 05/19/17 05/21/17 Rx Pantoprazole Tab [Protonix Tab] 40 mg PO BID #90 tablet 05/19/17 05/21/17 Rx Review of System - Review of System 12 point system: reviewed and no additional remarkable complaints except as stated - Review of System Constitutional: Present: chills, fever (subjective), weakness Respiratory: Absent: cough, respiratory distress Cardiovascular: Absent: chest pain Gastrointestinal: Present: abdominal pain, nausea, vomiting. Absent: diarrhea, constipation, melena Genitourinary male: Absent: dysuria Musculoskeletal: Absent: arm pain, back pain Skin: Absent: rash Neurological: Absent: headache Psychiatric: Absent: anxiety Medical,Surgical,& Family Hx - Medical History Cardio: History of: Cardiac Dysrhythmia, Hypertension No history of: CAD, SC HEENT: History of: Eye Problem (cataract right eye) Endocrine: History of: Diabetes Mellitus (NIDDM) Gastrointestinal: History of: GERD Musculoskeletal: History of: Back/Neck Problems (back and left shoulder pain) - Surgical History HEENT Surgeries: Surgical HX of: Eye Surgery ("eye surgery in right eye") Orthopedic Surgeries: Surgical HX of;: Orthopedic Surgery ("Back surgery years ago") - Family History Family History: Reports;: Family Diabetes (mother, three sisters), Family Hypertension (sister) - Social History Smoking Status: Current some day smoker Marital Status: Lives With:: Spouse Functional capacity: independent ambulation Exam Vital Signs: Vital Signs Temperature 97.6 F 05/21/17 21:26 Pulse Rate 60 05/21/17 22:15 Respiratory Rate 19 05/21/17 22:15 Blood Pressure 178/89 05/21/17 22:15 O2 Sat by Pulse Oximetry 100 05/21/17 22:15 - General General appearance: alert, in no apparent distress - Head Head exam: Present: atraumatic, normocephalic - Eye Eye exam: Present: PERRL, EOMI - ENT ENT exam: Present: mucous membranes moist. Absent: mucous membranes dry - Neck Neck exam: Present: full ROM. Absent: tenderness - Chest Chest inspection: Present: symmetric chest wall rise. Absent: tenderness - Respiratory Respiratory exam: Present: normal lung sounds bilaterally. Absent: respiratory distress - Cardiovascular Cardiovascular exam: Present: regular rate, normal rhythm, normal heart sounds - Abdominal Exam Abdominal exam: Present: soft, distention, tenderness (diffusely), guarding, rebound, other (right side of abdomen has incision consistent with previous surgery that is clean, dry and intact but no drainage) - Extremities Exam Extremities exam: Present: full ROM. Absent: tenderness, pedal edema - Neurological Exam Neurological exam: Present: alert, oriented X3, CN II-XII intact. Absent: motor sensory deficit - Psychiatric Psychiatric exam: Present: normal affect, normal mood - Skin Skin exam: Present: warm, dry Course Course Narrative: abdominal distention on left. significant pain and peritonitis. CT scan reveals large liver hematoma and liver lacerations. upon reexam, pt states he passed out earlier today while standing at the refrigerator. Pt admited to ICU. Results - Labs CBC & BMP: 05/21/17 17:41 05/21/17 17:41 Lab Results: I have reviewed the patients labs Labs: Laboratory Tests 05/21/17 05/21/17 17:41 17:41 WBC 13.7 H D RBC 3.17 L Hgb 9.4 L Hct 27.4 L MCV 86.4 L Neut % (Auto) 80.0 H Lymph % (Auto) 10.0 L Neut # (Auto) 10.[address] [place] # (Auto) 1.2 H BUN 20 H Creatinine 1.50 H Glucose 279 H Magnesium 1.6 L AST 97 H ALT 214 H Alkaline Phosphatase 128 H Total Protein 6.1 L Albumin 3.2 L Laboratory Tests 05/21/17 17:41 Lactic Acid 3.8 H Laboratory Tests 05/21/17 18:12 Urine Color Yellow Urine Appearance Clear Urine pH 5.0 Ur Specific [place] 1.030 Urine Protein 30 Urine Glucose (UA) 150 Urine Blood Negative Urine Urobilinogen < 2.0 H Urine RBC 1 Urine WBC 1 Hyaline Casts 4 Urine Mucus Occasional Laboratory Tests 05/21/17 20:37 Blood Type O POSITIVE Antibody Screen Negative - Diagnostic Findings Procedure: Abdominal x-ray: report reviewed by me (No jluis bowel obstruction. Enlargement of the hepatic shadow.), CT Abdomen and Pelvis: report reviewed by me (There is evidence of hepatic laceration involving the lateral segment of the left lobe the liver, both superiorly and inferiorly, with large associated subcapsular hematoma.) Disposition Clinical Impression: Liver laceration, closed, Liver hematoma, Syncope Case discussed with: patient Disposition: Still a Patient
[2017-05-22 01:19] LABS: Basophils % 0.2 % (0.0-0.8); Eosinophils % 0.2 % (0.00-10.9); Hematocrit 21.9 VOL% (42.0-52.0); Hemoglobin 7.6 GM/DL (14.0-18.0); Immature Granulocytes % 0.8 %; Immature Granulocytes Absolute 0.07 #; Lymphocytes # 1.6 10*3/uL (1.4-4.0); Lymphocytes % 17.2 % (21.2-54.2); Mean Corpuscular HGB Conc 34.7 GM/DL (32-36); Mean Corpuscular Hemoglobin 30 PG (27-34); Mean Corpuscular Volume 85.2 FL (87-102); Mean Platelet Volume 11.4 FL (9.6-12.0); Monocytes # 1.1 10*3/uL (0.11-0.8); Monocytes % 11.8 % (1.7-12.7); Neutrophils # 6.4 10*3/uL (1.4-7.4); Neutrophils % 69.8 % (38.7-73.9); Platelet Count 180 T/CUMM (130-400); Red Blood Count 2.57 MC/CUMM (3.8-5.5); Red Cell Distribution Width 12.9 % (9.3-17.3); White Blood Count 9.2 T/CUMM (4-12)
[2017-05-22] MEDS: HYDROmorphone 2 MG/1 ML VIAL IV PRN ×3 (05:18→22:09)
[2017-05-22] MEDS: DEXTROSE 5% NACL 0.45% 1,000 ML IV SCH ×3 (05:18→14:14)
--- NOTE | 2017-05-22 06:48 | General Surg History&Physical ---
Assessment and Plan - Time spent with patient Time spent with patient: Greater than 30 minutes (1) Liver laceration, closed Status: Acute Assessment and plan: Impression: Liver laceration with subcapsular hematoma Plan 1. Transfusions as needed and observation at this time no surgery planned unless he requires a good bit of blood. Current Visit: Yes (2) Status post duodenal ulcer repair Status: Resolved Assessment and plan: Impression: Status post robotic duodenal ulcer repair Plan: Continued present ulcer treatment and just some liquids for now. Current Visit: No (3) Hypertension Status: Chronic Assessment and plan: Impression: Essential hypertension Current Visit: No (4) Diabetes Status: Chronic Assessment and plan: Impression: Diabetes adult onset Current Visit: No Qualifiers: Diabetes mellitus type: type 2 History of Present Illness Chief complaint: Liver laceration with hematoma History of present illness: Mr. Riojas is a 61 year old male -Citizen Of [place] male who apparently underwent a robotic repair of a perforated ulcer on Wednesday and was discharged on Wednesday. He denied any unusual pain or discomfort at the time of discharge but went home and apparently fell last night and passed out. He denies any medication use or alcohol at the time. He was having abdominal pain right upper quadrant once he had awakened and he came to the emergency room at this time. He was found to have hematocrit of [address] scan suggestive of liver laceration with a subcapsular hematoma. He has been admitted and will probably have to transfuse him with his crit now down to 21. He appears to be stable alert with good vital signs at this point time but will need to observe him for a while. Home Medications Medication Instructions Recorded Confirmed Type Aspirin 81 mg PO DAILY 05/16/17 05/21/17 History metFORMIN [Glucophage] 500 mg PO DAILY W/BREAKFAST 05/16/17 05/21/17 History Amoxicillin Cap/Tab 1,000 mg PO Q12HR #28 capsule 05/19/17 05/21/17 Rx Atenolol [Tenormin] 25 mg PO DAILY #30 tablet 05/19/17 05/21/17 Rx Clarithromycin [Biaxin] 500 mg PO Q12HR #28 tablet 05/19/17 05/21/17 Rx Lisinopril [Prinivil] 20 mg PO BID #60 tablet 05/19/17 05/21/17 Rx Meperidine Tab [Demerol Tab] 50 mg PO Q4H #30 tablet 05/19/17 05/21/17 Rx Pantoprazole Tab [Protonix Tab] 40 mg PO BID #90 tablet 05/19/17 05/21/17 Rx Allergies Allergy/AdvReac Type Severity Reaction Status Date / Time codeine Allergy Intermediate ITCHING Verified 05/21/17 17:19 Medical,Surgical,& Family Hx - Medical History Cardio: History of: Cardiac Dysrhythmia, Hypertension, Cardiovascular Problems ( irregular heart rate) No history of: CAD, [place] HEENT: History of: Eye Problem (cataract right eye) Endocrine: History of: Diabetes Mellitus (NIDDM) Gastrointestinal: History of: GERD Musculoskeletal: History of: Back/Neck Problems (back and left shoulder pain) - Surgical History HEENT Surgeries: Surgical HX of: Eye Surgery ("eye surgery in right eye") Orthopedic Surgeries: Surgical HX of;: Orthopedic Surgery ("Back surgery years ago") - Family History Family History: Reports;: Family Diabetes (mother, three sisters), Family Hypertension (sister) - Social History Smoking Status: Current some day smoker Frequency of Alcohol Use: None Type of Drug Use: None Functional capacity: independent ambulation Exam - Constitutional Vitals: Period Temp Pulse Resp BP Sys/Frias Pulse Ox Last 24 Hr 97.4 F-98.2 F 54-73 9-27 109-228/60-99 95-100 General appearance: mild distress - Head Head exam: Present: normal inspection - ENT ENT exam: Present: normal exam - Neck Neck exam: Present: normal inspection - Respiratory Respiratory exam: Present: clear to auscultation bilaterally, rales - Cardiovascular Cardiovascular exam: Present: RRR - GI/Abdominal GI/Abdominal exam: Present: guarding (Right upper quadrant), hypoactive bowel sounds, tenderness (Right upper quadrant), soft. Absent: distended - Extremities Exam Extremities exam: Present: normal inspection - Back Exam Back exam: Present: normal inspection - Neurological Exam Neurological exam: Present: alert, oriented X3, CN II-XII intact - Skin Skin exam: Present: normal color, warm, dry 12 point system: reviewed and no additional remarkable complaints except as stated Quality Measures - VTE Contraindication to Pharmacological VTE Prophylaxis: Active Bleeding Results - Labs CBC & BMP: 05/22/17 00:36 05/21/17 17:41 Lab Results: I have reviewed the past 24 hour labs - Diagnostic Findings Procedure: CT Abdomen and Pelvis: report reviewed by me (Subcapsular hematoma liver)
[2017-05-22] MEDS ORDERED: DEXTROSE 50% 25 GM/50 ML VIAL IV PRN (06:52)
[2017-05-22] MEDS ORDERED: GLUCAGON 1 MG VIAL IM PRN (06:52)
--- NOTE | 2017-05-22 07:36 | EKG Report ---
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
--- NOTE | 2017-05-22 08:06 | Cardiology Consult Note ---
History of Present Illness - Data of Consult Patient: new to practice Consult date: 05/22/17 - Consult Narrative History of present illness: Cardiology note 61-year-old man status post robotic repair of the perforated duodenal ulcer May 17. Readmitted last night for right upper quadrant pain and near syncope. Patient fell at home but did not lose consciousness. CT shows a left lobe liver laceration with a large subcapsular hematoma. Hemoglobin 7.6 hematocrit 21.9. On second unit of blood now. Blood pressure is 170/80 pulse is 86 and regular O2 sat 98% on room air. EKG shows sinus rhythm with LVH with strain pattern. Patient has hypertension for over 10 years but admits to being noncompliant with his medication. No history of stroke. No history of heart attack. He does have chronic dyspnea. Patient states he quit smoking 1 month ago but has been swelling since age 22. He quit alcohol 3 years ago but used to conserve [place] up to 1/5 per day and beer. He has had abdominal pain and seen blood in his stool in the past. 5 feet 3 inches tall 133 pounds. He is a type II diabetic takes Metformin 500 mg daily. Father had hypertension and valve surgery and from heart failure age 53. Mother is 83 and has diabetes. 3 brothers have hypertension. 2 sisters have diabetes hypertension. Surgeries include lumbar laminectomy and right eye surgery. The patient is legally blind in his right eye. Lab data White count 9.2 hemoglobin 7.6 hematocrit 21.9 Sodium 136 potassium 3.5 chloride 100 CO2 28 BUN 20 creatinine 1.50 AST 214 ALT 97 Blood pressure 170/80 pulse 86 and regular O2 sat 98 room air blateral arcus. Poor oral hygiene. Nearly edentulous. Left carotid bruit Regular rhythm systolic ejection upper right sternal border no AI Abdomen mildly tender bowel sounds active Femoral pulses 2+ with left bruit distal pulses 1+ no edema Impression Status post robotic repair of perforated duodenal ulcer May 17 Status post near syncope and weakness with left lobe liver laceration and subcapsular hematoma Hemoglobin 7.6 hematocrit 21.9-on second unit transfusion now Chronic hypertension with history of noncompliance History of tobacco abuse History EtOH abuse Left carotid bruit EKG shows LVH with strain pattern Aortic sclerosis murmur Diabetes Chronic dyspnea but no history of angina or heart failure Plan Transfuse follow H&H closely. Echo Doppler today Due to multiple risk factors, will need to screen for CAD later CC: Sahil Grissom MD - Home Medications and Allergies Home Medications: Home Medications Medication Instructions Recorded Confirmed Type Aspirin 81 mg PO DAILY 05/16/17 05/21/17 History metFORMIN [Glucophage] 500 mg PO DAILY W/BREAKFAST 05/16/17 05/21/17 History Amoxicillin Cap/Tab 1,000 mg PO Q12HR #28 capsule 05/19/17 05/21/17 Rx Atenolol [Tenormin] 25 mg PO DAILY #30 tablet 05/19/17 05/21/17 Rx Clarithromycin [Biaxin] 500 mg PO Q12HR #28 tablet 05/19/17 05/21/17 Rx Lisinopril [Prinivil] 20 mg PO BID #60 tablet 05/19/17 05/21/17 Rx Meperidine Tab [Demerol Tab] 50 mg PO Q4H #30 tablet 05/19/17 05/21/17 Rx Pantoprazole Tab [Protonix Tab] 40 mg PO BID #90 tablet 05/19/17 05/21/17 Rx Allergies/Adverse Reactions: Allergies Allergy/AdvReac Type Severity Reaction Status Date / Time codeine Allergy Intermediate ITCHING Verified 05/21/17 17:19 Medical,Surgical,& Family Hx - Medical History Cardio: History of: Cardiac Dysrhythmia, Hypertension, Cardiovascular Problems ( irregular heart rate) No history of: CAD, [place] HEENT: History of: Eye Problem (cataract right eye) Endocrine: History of: Diabetes Mellitus (NIDDM) Gastrointestinal: History of: GERD Musculoskeletal: History of: Back/Neck Problems (back and left shoulder pain) - Surgical History HEENT Surgeries: Surgical HX of: Eye Surgery ("eye surgery in right eye") Orthopedic Surgeries: Surgical HX of;: Orthopedic Surgery ("Back surgery years ago") - Family History Family History: Reports;: Family Diabetes (mother, three sisters), Family Hypertension (sister) - Social History Smoking Status: Current some day smoker Frequency of Alcohol Use: None Type of Drug Use: None Physical Examination Vital Signs Temp Pulse Resp BP Pulse Ox 98.1 F 72 16 109/60 95 05/21/17 17:15 05/21/17 17:15 05/21/17 17:15 05/21/17 17:15 05/21/17 17:15 Result/EKG - Labs CBC & BMP: 05/22/17 00:36 05/21/17 17:41 Labs: Laboratory Results - last 24 hr 05/21/17 05/21/17 05/21/17 17:41 17:41 17:41 WBC 13.7 H D RBC 3.17 L Hgb 9.4 L Hct 27.4 L MCV 86.4 L MCH 30 MCHC 34.3 RDW 13.0 Plt Count 227 D MPV 11.9 Neut % (Auto) 80.0 H Lymph % (Auto) 10.0 L Stewart % (Auto) 8.5 Eos % (Auto) 0.4 Baso % (Auto) 0.1 Neut # (Auto) 10.9 H Lymph # (Auto) 1.4 Stewart # (Auto) 1.2 H Eos # (Auto) 0.1 Baso # (Auto) 0.0 Immature Gran % 1.0 Nucleated RBC % 0.0 Immature Gran # 0.13 Nucleated RBCs # 0.00 Sodium 136 Potassium 3.5 Chloride 100 Carbon Dioxide 28 Anion Gap 11.5 BUN 20 H Creatinine 1.50 H GFR Calculation 56 BUN/Creatinine Ratio 13.00 Glucose 279 H Calculated Osmolality 284.0 Lactic Acid 3.8 H Calcium 9.1 Magnesium 1.6 L Total Bilirubin 0.70 AST 97 H ALT 214 H Alkaline Phosphatase 128 H Total Protein 6.1 L Albumin 3.2 L Globulin 2.9 Albumin/Globulin Ratio 1.1 Lipase 252.0 Urine Color Urine Appearance Urine pH Ur Specific Ovid Urine Protein Urine Glucose (UA) Urine Ketones Urine Blood Urine Nitrate Urine Bilirubin Urine Urobilinogen Urine Leukocytes Urine RBC Urine WBC Hyaline Casts Urine Mucus Ur Culture Indicated? Blood Type O POSITIVE Antibody Screen Crossmatch 05/21/17 05/21/17 05/22/17 18:12 20:37 00:36 WBC 9.2 D RBC 2.57 L Hgb 7.6 L Hct 21.9 L MCV 85.2 L MCH 30 MCHC 34.7 RDW 12.9 Plt Count 180 D MPV 11.4 Neut % (Auto) 69.8 Lymph % (Auto) 17.2 L Stewart % (Auto) 11.8 Eos % (Auto) 0.2 Baso % (Auto) 0.2 Neut # (Auto) 6.4 Lymph # (Auto) 1.6 Stewart # (Auto) 1.1 H Eos # (Auto) 0.0 Baso # (Auto) 0.0 Immature Gran % 0.8 Nucleated RBC % 0.0 Immature Gran # 0.07 Nucleated RBCs # 0.00 Sodium Potassium Chloride Carbon Dioxide Anion Gap BUN Creatinine GFR Calculation BUN/Creatinine Ratio Glucose Calculated Osmolality Lactic Acid Calcium Magnesium Total Bilirubin AST ALT Alkaline Phosphatase Total Protein Albumin Globulin Albumin/Globulin Ratio Lipase Urine Color Yellow Urine Appearance Clear Urine pH 5.0 Ur Specific Ovid 1.030 Urine Protein 30 Urine Glucose (UA) 150 Urine Ketones Negative Urine Blood Negative Urine Nitrate Negative Urine Bilirubin Negative Urine Urobilinogen < 2.0 H Urine Leukocytes Negative Urine RBC 1 Urine WBC 1 Hyaline Casts 4 Urine Mucus Occasional Ur Culture Indicated? Not indicated Blood Type O POSITIVE Antibody Screen Negative Crossmatch See Detail Quality Measures - VTE Contraindication to Pharmacological VTE Prophylaxis: Active Bleeding
[2017-05-22] MEDS: INSULIN REGULAR 100 UNIT/ML SUBCUT SCH ×4 (08:18→21:30)
[2017-05-22] MEDS: SUCRALFATE 1 GM TABLET PO SCH ×4 (08:19→22:07)
[2017-05-22] MEDS: ATENOLOL 25 MG TABLET PO SCH (08:19)
[2017-05-22] MEDS: PANTOPRAZOLE 40 MG TABLET PO SCH ×2 (08:19→22:07)
[2017-05-22] MEDS: LISINOPRIL 20 MG TABLET PO SCH ×2 (08:19→22:07)
[2017-05-22] MEDS: DOCUSATE SODIUM 100 MG CAPSULE PO SCH ×2 (08:19→22:07)
[2017-05-22] MEDS ORDERED: PANTOPRAZOLE 40 MG TABLET PO SCH (09:00)
[2017-05-22 09:49] LABS: Hematocrit 28.4 VOL% (42.0-52.0); Hemoglobin 9.9 GM/DL (14.0-18.0)
[2017-05-22 11:03] LABS: PT Patient Result 10.7 SECS; Partial Thromboplastin Time 24.4 SECS (0-40)
[2017-05-22] MEDS: CLARITHROMYCIN 500 MG TABLET PO SCH ×2 (14:40→22:07)
[2017-05-22] MEDS: AMOXICILLIN 500 MG CAPSULE PO SCH ×2 (14:40→22:06)
[2017-05-22 15:03] LABS: Hematocrit 27.6 VOL% (42.0-52.0); Hemoglobin 9.6 GM/DL (14.0-18.0)
[2017-05-22] MEDS: hydrALAZINE 20 MG/1 ML VIAL IV PRN ×2 (15:43→22:07)
[2017-05-22 22:44] LABS: Hematocrit 28.7 VOL% (42.0-52.0); Hemoglobin 10.2 GM/DL (14.0-18.0)
[2017-05-23] MEDS: DEXTROSE 5% NACL 0.45% 1,000 ML IV SCH ×3 (00:01→07:40)
[2017-05-23 03:14] LABS: Basophils % 0.3 % (0.0-0.8); Eosinophils # 0.3 10*3/uL (0.0-0.87); Eosinophils % 2.9 % (0.00-10.9); Hematocrit 27.9 VOL% (42.0-52.0); Hemoglobin 9.8 GM/DL (14.0-18.0); Immature Granulocytes % 0.6 %; Immature Granulocytes Absolute 0.06 #; Lymphocytes # 2.3 10*3/uL (1.4-4.0); Lymphocytes % 23.5 % (21.2-54.2); Mean Corpuscular HGB Conc 35.1 GM/DL (32-36); Mean Corpuscular Hemoglobin 29 PG (27-34); Mean Corpuscular Volume 83.8 FL (87-102); Mean Platelet Volume 10.6 FL (9.6-12.0); Monocytes # 1.3 10*3/uL (0.11-0.8); Monocytes % 13.2 % (1.7-12.7); Neutrophils # 5.9 10*3/uL (1.4-7.4); Neutrophils % 59.5 % (38.7-73.9); Platelet Count 197 T/CUMM (130-400); Red Blood Count 3.33 MC/CUMM (3.8-5.5); Red Cell Distribution Width 13.1 % (9.3-17.3)
[2017-05-23 03:40] LABS: Calcium 8.7 MG/DL (8.5-10.1); Magnesium 1.6 MG/DL (1.8-2.4); Osmolality,Calculated 276.7 MOS/KG (273-304); Potassium 3.3 MMOL/L (3.5-5.1)
[2017-05-23] MEDS: SUCRALFATE 1 GM TABLET PO SCH ×4 (06:32→20:01)
[2017-05-23] MEDS: INSULIN REGULAR 100 UNIT/ML SUBCUT SCH ×4 (06:32→20:10)
[2017-05-23] MEDS: hydrALAZINE 20 MG/1 ML VIAL IV PRN (06:33)
[2017-05-23] MEDS ORDERED: LABETALOL 20 MG/4 ML SYRINGE IV ONE (08:07)
--- NOTE | 2017-05-23 08:16 | Cardiology Progress Note ---
Cardiology - PN: Subj Interval history: Cardiology note 61-year-old man admitted with right upper quadrant pain and near syncope. CT demonstrated left lobe liver laceration with large subcapsular hematoma. Hematocrit 21.9 and presentation. Patient received 2 unit transfusion today. Blood pressure is 180/90 Telemetry shows sinus rhythm in the 80s. O2 sat 97 on 2 L. Regular rhythm no gallop. Decreased breath sounds but clear. Abdomen a little tender but tolerating clear liquids No leg edema Lab data Hemoglobin 9.8 hematocrit 27.4 White count 10.0 platelet count 197 Sodium 138 potassium 3.3 chloride 102 CO2 28 BUN 6 creatinine 0.90 Glucose 171 Echo showed ejection fraction of 50-55% with moderate concentric LVH, mitral valve sclerosis, aortic valve sclerosis, normal RV function, mild TR PA pressure 35-40 and grade 2 diastolic dysfunction. Impression Status post robotic repair perforated duodenal ulcer May 17 Status post near syncope and weakness with left lobe liver laceration and subcapsular hematoma H&H 9.8 and 27.4 today after 2 unit transfusion Chronic hypertension history of noncompliance History of tobacco abuse History EtOH abuse Left carotid bruit EKG shows LVH with strain pattern Diabetes Chronic dyspnea but no history of angina or heart failure hypokalemia Plan 20 mg IV labetalol now Increase lisinopril 20 mg twice daily Increase hydralazine 50 mg twice daily Exam (Progress Note) - Constitutional Vitals: Period Temp Pulse Resp BP Sys/Frias Pulse Ox Last 24 Hr 98.4 F-98.6 F 55-110 10-38 97-207/49-94 94-100 Result/EKG - Labs CBC & BMP: 05/23/17 03:05 05/23/17 03:05 Labs: Laboratory Results - last 24 hr 05/21/17 05/22/17 05/22/17 20:37 09:36 10:43 WBC RBC Hgb 9.9 L D Hct 28.4 L MCV MCH MCHC RDW Plt Count MPV Neut % (Auto) Lymph % (Auto) [place] % (Auto) Eos % (Auto) Baso % (Auto) Neut # (Auto) Lymph # (Auto) [place] # (Auto) Eos # (Auto) Baso # (Auto) Immature Gran % Nucleated RBC % Immature Gran # Nucleated RBCs # INR 1.0 PT Patient/Control Mix 10.7 Circ Anticoag PTT 24.4 Sodium Potassium Chloride Carbon Dioxide Anion Gap BUN Creatinine GFR Calculation BUN/Creatinine Ratio Glucose Calculated Osmolality Calcium Magnesium Crossmatch See Detail 05/22/17 05/22/17 05/23/17 14:49 22:41 03:05 WBC 10.0 RBC 3.33 L D Hgb 9.6 L 10.2 L 9.8 L Hct 27.6 L 28.7 L 27.9 L MCV 83.8 L MCH 29 MCHC 35.1 RDW 13.1 Plt Count 197 MPV 10.6 Neut % (Auto) 59.5 Lymph % (Auto) 23.5 [place] % (Auto) 13.2 H Eos % (Auto) 2.9 Baso % (Auto) 0.3 Neut # (Auto) 5.9 Lymph # (Auto) 2.3 [place] # (Auto) 1.3 H Eos # (Auto) 0.3 Baso # (Auto) 0.0 Immature Gran % 0.6 Nucleated RBC % 0.0 Immature Gran # 0.06 Nucleated RBCs # 0.00 INR PT Patient/Control Mix Circ Anticoag PTT Sodium Potassium Chloride Carbon Dioxide Anion Gap BUN Creatinine GFR Calculation BUN/Creatinine Ratio Glucose Calculated Osmolality Calcium Magnesium Crossmatch 05/23/17 03:05 WBC RBC Hgb Hct MCV MCH MCHC RDW Plt Count MPV Neut % (Auto) Lymph % (Auto) [place] % (Auto) Eos % (Auto) Baso % (Auto) Neut # (Auto) Lymph # (Auto) [place] # (Auto) Eos # (Auto) Baso # (Auto) Immature Gran % Nucleated RBC % Immature Gran # Nucleated RBCs # INR PT Patient/Control Mix Circ Anticoag PTT Sodium 138 Potassium 3.3 L Chloride 102 Carbon Dioxide 28 Anion Gap 11.3 BUN 6 L Creatinine 0.90 GFR Calculation 101 BUN/Creatinine Ratio 6.00 Glucose 171 H Calculated Osmolality 276.7 Calcium 8.7 Magnesium 1.6 L Crossmatch Quality Measures - VTE Contraindication to Pharmacological VTE Prophylaxis: Active Bleeding
--- NOTE | 2017-05-23 08:41 | General Surgery Progress Note ---
Assessment and Plan - Time spent with patient Time spent with patient: Less than 30 minutes (1) Liver laceration, closed Status: Acute Assessment and plan: Impression: Liver laceration with subcapsular hematoma Plan 1. Transfusions as needed and observation at this time no surgery planned unless he requires a good bit of blood. 05/23/2017 Patient remains stable at this time and his hematocrit after 2 units was 28 and is been holding throughout the day. He has less tenderness but still little bit in the right upper quadrant area. He states he has had a little bowel movement abdomen is fairly soft with some hypoactive bowel sounds. We will try to advance his diet little bit now see if we can get him onto a better diet. If his hematocrit remained stable and his blood pressures are good and I think we may be of moving to the floor tomorrow. Cardiology has seen him and thinks the ST segment changes are related to Hypertension and hypertrophy of his wall but he has a ejection fraction about 55 %. Dr. Jenkins is given him some medication to try to have the blood pressure at this time. Current Visit: Yes (2) Status post duodenal ulcer repair Status: Resolved Assessment and plan: Impression: Status post robotic duodenal ulcer repair Plan: Continued present ulcer treatment and just some liquids for now. Current Visit: No (3) Hypertension Status: Chronic Assessment and plan: Impression: Essential hypertension Current Visit: No (4) Diabetes Status: Chronic Assessment and plan: Impression: Diabetes adult onset Current Visit: No Qualifiers: Diabetes mellitus type: type 2 Subjective Patient reports: Present: feels better, pain is less, tolerating liquids well, bowel movement, afebrile Exam - Constitutional Vitals: Period Temp Pulse Resp BP Sys/Frias Pulse Ox Last 24 Hr 98.4 F-98.6 F 55-110 10-38 97-207/49-94 94-100 General appearance: mild distress - Head Head exam: Present: normal inspection - ENT ENT exam: Present: normal exam - Neck Neck exam: Present: normal inspection - Respiratory Respiratory exam: Present: clear to auscultation bilaterally, rales - Cardiovascular Cardiovascular exam: Present: RRR - GI/Abdominal GI/Abdominal exam: Present: hypoactive bowel sounds, tenderness (Still some in the right upper quadrant area), soft - Extremities Exam Extremities exam: Present: normal inspection - Neurological Exam Neurological exam: Present: alert, oriented X3, CN II-XII intact - Skin Skin exam: Present: normal color, warm, dry Results - Labs CBC & BMP: 05/23/17 03:05 05/23/17 03:05 Lab Results: I have reviewed the past 24 hour labs Quality Measures - VTE Contraindication to Pharmacological VTE Prophylaxis: Active Bleeding
[2017-05-23] MEDS: SODIUM CHLOR 0.9% KCL 40 MEQ 40 MEQ/1,000 ML BAG IV SCH ×2 (09:00→20:00)
[2017-05-23] MEDS: AMOXICILLIN 500 MG CAPSULE PO SCH ×2 (10:01→20:01)
[2017-05-23] MEDS: DOCUSATE SODIUM 100 MG CAPSULE PO SCH ×2 (10:02→20:03)
[2017-05-23] MEDS: LISINOPRIL 20 MG TABLET PO SCH ×2 (10:02→20:01)
[2017-05-23] MEDS: PANTOPRAZOLE 40 MG TABLET PO SCH ×2 (10:02→20:03)
[2017-05-23] MEDS: CLARITHROMYCIN 500 MG TABLET PO SCH ×2 (10:02→20:03)
[2017-05-23] MEDS: ATENOLOL 25 MG TABLET PO SCH (10:02)
[2017-05-23] MEDS: HYDROmorphone 2 MG/1 ML VIAL IV PRN ×2 (11:58→19:56)
[2017-05-24 04:42] LABS: Basophils % 0.3 % (0.0-0.8); Eosinophils # 0.4 10*3/uL (0.0-0.87); Eosinophils % 3.8 % (0.00-10.9); Hematocrit 28.9 VOL% (42.0-52.0); Hemoglobin 9.9 GM/DL (14.0-18.0); Immature Granulocytes % 0.9 %; Lymphocytes # 2.3 10*3/uL (1.4-4.0); Lymphocytes % 21.3 % (21.2-54.2); Mean Corpuscular HGB Conc 34.3 GM/DL (32-36); Mean Corpuscular Hemoglobin 30 PG (27-34); Mean Corpuscular Volume 86.3 FL (87-102); Mean Platelet Volume 10.5 FL (9.6-12.0); Monocytes # 1.2 10*3/uL (0.11-0.8); Monocytes % 11.1 % (1.7-12.7); Neutrophils # 6.7 10*3/uL (1.4-7.4); Neutrophils % 62.6 % (38.7-73.9); Platelet Count 283 T/CUMM (130-400); Red Blood Count 3.35 MC/CUMM (3.8-5.5); Red Cell Distribution Width 13.6 % (9.3-17.3); White Blood Count 10.7 T/CUMM (4-12)
[2017-05-24 05:16] LABS: Calcium 8.6 MG/DL (8.5-10.1); Magnesium 1.8 MG/DL (1.8-2.4); Osmolality,Calculated 277.5 MOS/KG (273-304); Potassium 3.9 MMOL/L (3.5-5.1)
[2017-05-24] MEDS: INSULIN REGULAR 100 UNIT/ML SUBCUT SCH ×2 (06:41→12:09)
[2017-05-24] MEDS: SODIUM CHLOR 0.9% KCL 40 MEQ 40 MEQ/1,000 ML BAG IV SCH (06:41)
[2017-05-24] MEDS: SUCRALFATE 1 GM TABLET PO SCH ×2 (06:41→12:09)
--- NOTE | 2017-05-24 08:19 | General Surgery Progress Note ---
Assessment and Plan - Time spent with patient Time spent with patient: Less than 30 minutes (1) Liver laceration, closed Status: Acute Assessment and plan: Impression: Liver laceration with subcapsular hematoma Plan 1. Transfusions as needed and observation at this time no surgery planned unless he requires a good bit of blood. 05/23/2017 Patient remains stable at this time and his hematocrit after 2 units was 28 and is been holding throughout the day. He has less tenderness but still little bit in the right upper quadrant area. He states he has had a little bowel movement abdomen is fairly soft with some hypoactive bowel sounds. We will try to advance his diet little bit now see if we can get him onto a better diet. If his hematocrit remained stable and his blood pressures are good and I think we may be of moving to the floor tomorrow. Cardiology has seen him and thinks the ST segment changes are related to Hypertension and hypertrophy of his wall but he has a ejection fraction about 55 %. Dr. Jenkins is given him some medication to try to have the blood pressure at this time. 05/24/2017 Patient remained stable with a little discomfort still in the right upper quadrant but he has been able to tolerate his diet and his vital signs remained nice and stable. His hematocrit has remained stable at 28. He generally looks very good at this point time so we will get him moving to the floor for further observation. Current Visit: Yes (2) Status post duodenal ulcer repair Status: Resolved Assessment and plan: Impression: Status post robotic duodenal ulcer repair Plan: Continued present ulcer treatment and just some liquids for now. Current Visit: No (3) Hypertension Status: Chronic Assessment and plan: Impression: Essential hypertension Current Visit: No (4) Diabetes Status: Chronic Assessment and plan: Impression: Diabetes adult onset Current Visit: No Qualifiers: Diabetes mellitus type: type 2 Subjective Patient reports: Present: feels better, pain is less, tolerating a regular diet , bowel movement, afebrile Exam - Constitutional Vitals: Period Temp Pulse Resp BP Sys/Frias Pulse Ox Last 24 Hr 97.7 F-98.7 F 54-127 10-31 124-188/64-102 95-100 General appearance: no acute distress - Head Head exam: Present: normal inspection - ENT ENT exam: Present: normal exam - Neck Neck exam: Present: normal inspection - Respiratory Respiratory exam: Present: clear to auscultation bilaterally - Cardiovascular Cardiovascular exam: Present: RRR - GI/Abdominal GI/Abdominal exam: Present: normal bowel sounds, tenderness (Mild tenderness right upper quadrant), soft - Extremities Exam Extremities exam: Present: normal inspection - Back Exam Back exam: Present: normal inspection - Neurological Exam Neurological exam: Present: alert, oriented X3, CN II-XII intact - Skin Skin exam: Present: normal color, warm, dry Results - Labs CBC & BMP: 05/24/17 04:34 05/24/17 04:34 Lab Results: I have reviewed the past 24 hour labs Quality Measures - VTE Contraindication to Pharmacological VTE Prophylaxis: Active Bleeding
--- NOTE | 2017-05-24 08:27 | Physician Query Form ---
CLICK EDIT DOCUMENT TO SELECT QUERY ANSWER --> OK --> SIGN Tamara Haskins RN, CCDS Certified Clinical Wire Weaver W) [phone] (f) [phone] [email or web address] PROVIDERS: Make your selection(s) from the choices in EACH section by typing an "x" and enter comments in the comment section. Please use your independent medical judgment in providing your response. This request does not imply that any particular answer is desired or expected. CLINICAL INDICATORS: (Providers should not edit this section) The medical record indicates that the patient was admitted with a Liver laceration, " Hemoglobin 7.6 hematocrit 21.9" and the patient is on "second unit of blood now". Based on the above, could you clarify which of the following conditions you are evaluating, treating, and/or monitoring? ( ) Blood loss anemia (X ) acute ( ) chronic ( ) acute on chronic ( ) Acute blood loss anemia on baseline chronic anemia ( ) Acute blood loss anemia as a complication of a procedure ( ) Iron deficiency anemia not associated with blood loss ( ) Dilutional anemia due to IV fluids ( ) Anemia due to chemotherapy ( ) Anemia due to neoplastic disease ( ) Anemia due to chronic kidney disease ( ) Pernicious anemia ( ) Aplastic anemia ( ) Hemolytic anemia ( ) immune ( ) non-immune - please specify cause: ( ) Anemia due to other condition, please specify: ( ) Clinically unable to determine COMMENTS: PLEASE ALSO DOCUMENT RESPONSE IN PROGRESS NOTES AND/OR DISCHARGE SUMMARY Use of terms such as suspected, likely, or probable (associated with a specific diagnosis that is being evaluated, monitored, or treated as if it exists) are acceptable and can be restated in the discharge summary if not ruled out. MTDD
--- NOTE | 2017-05-24 08:29 | Physician Query Form ---
CLICK EDIT DOCUMENT TO SELECT QUERY ANSWER --> OK --> SIGN Tamara Haskins RN, CCDS Certified Clinical Wedding Coordinator W) [phone] (f) [phone] [email or web address] PROVIDERS: Make your selection(s) from the choices in EACH section by typing an "x" and enter comments in the comment section. Please use your independent medical judgment in providing your response. This request does not imply that any particular answer is desired or expected. CLINICAL INDICATORS: (Providers should not edit this section) The medical record indicates that the patient was admitted with a Liver laceration, "Status post duodenal ulcer repair' and the patient "apparently fell last night and passed out". Based on the above, could you clarify the appropriate diagnosis, if significant , that supports the above abnormalities and additional evaluation, monitoring, and/or treatment rendered: ( x) Liver Laceration is thought to be due to recent fall ( ) Liver Laceration is thought to a late complication of the recent duodenal ulcer repair ( ) Other, please specify: ( ) Clinically unable to determine COMMENTS: PLEASE ALSO DOCUMENT RESPONSE IN PROGRESS NOTES AND/OR DISCHARGE SUMMARY Use of terms such as suspected, likely, or probable (associated with a specific diagnosis that is being evaluated, monitored, or treated as if it exists) are acceptable and can be restated in the discharge summary if not ruled out. MTDD
[2017-05-24] MEDS: HYDROmorphone 2 MG/1 ML VIAL IV PRN (08:31)
[2017-05-24] MEDS: AMOXICILLIN 500 MG CAPSULE PO SCH (08:41)
[2017-05-24] MEDS: CLARITHROMYCIN 500 MG TABLET PO SCH (08:41)
[2017-05-24] MEDS: DOCUSATE SODIUM 100 MG CAPSULE PO SCH (08:42)
[2017-05-24] MEDS: ATENOLOL 25 MG TABLET PO SCH (08:42)
[2017-05-24] MEDS: PANTOPRAZOLE 40 MG TABLET PO SCH (08:42)
[2017-05-24] MEDS: LISINOPRIL 20 MG TABLET PO SCH (08:42)
--- NOTE | 2017-05-24 09:10 | Cardiology Progress Note ---
Assessment and Plan - Time spent with patient Time spent with patient: Greater than 30 minutes Time spent discussing smoking cessation with patient: 3 to 10 minutes (1) Near syncope Status: Resolved Assessment and plan: SEE PLAN OF CARE LISTED BELOW Current Visit: Yes (2) Anemia Status: Acute Assessment and plan: SEE PLAN OF CARE LISTED BELOW Current Visit: Yes (3) Status post duodenal ulcer repair Status: Chronic Assessment and plan: SEE PLAN OF CARE LISTED BELOW Current Visit: No (4) Hypertension Status: Chronic Assessment and plan: SEE PLAN OF CARE LISTED BELOW Current Visit: No (5) Diabetes Status: Chronic Assessment and plan: SEE PLAN OF CARE LISTED BELOW Current Visit: No Qualifiers: Diabetes mellitus type: type 2 (6) Marijuana use Status: Chronic Assessment and plan: SEE PLAN OF CARE LISTED BELOW Current Visit: No (7) Liver laceration, closed Status: Acute Assessment and plan: SEE PLAN OF CARE LISTED BELOW Current Visit: Yes (8) Liver hematoma Status: Acute Assessment and plan: SEE PLAN OF CARE LISTED BELOW Current Visit: Yes Cardiology - PN: Subj Interval 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 DR. MOTLEY seeing during this admission. SUMMARY: Mr. Riojas, 61BM, is followed by evaluator transfer students in [place], [place] for "slow heart rate." History of hypertension, diabetes, marijuana use, sedentary lifestyle. Patient was admitted May 22, 2017 with near syncope and fall. Diagnosed with left lobe liver laceration and large subcapsular hematoma , anemia. Required blood transfusion overnight. Patient was recently admitted May 16, 2017 with acute abdominal pain. He was found to have perforated duodenal bulb ulcer with peritonitis, underwent laparoscopic repair and postoperative course was unremarkable. He was discharged May 18, 2017 in stable condition. Cardiology was consulted during the prior hospital stay for history of bradycardia, mildly elevated troponins. He had no cardiac complications during hospital stay, troponins flat, not NSTEMI. Echocardiogram May 23, 2017: EF 50-55%, no significant valvular abnormality. MAY 24, 2017: Patient denies chest pain, heaviness or tightness. Overnight, abdominal pain is improving. Labs seem to be stable. He is maintained on Atenolol 25 mg daily, decreased but not discontinued during prior hospitalization for fear of rebound tachycardia. Blood pressure remains elevated, systolic blood pressure averaging 160s-180s. Will add Norvasc 5 mg orally daily. Could consider decreasing/stopping Hydralazine if/when we get his blood pressure under better control. EKG reveals LV strain. Will further discuss with Dr. Prescott and await additional recommendations. ASSESSMENT/PLAN: 1. NEAR SYNCOPE - no arrythmia noted and will continue to follow telemetry. History of "slow heart rate" for which he sees evaluator transfer students in [place], [place]. 2. LACERATED LIVER S/P FALL -required transfusion. Seems to be stable. Surgery is following. 3. HYPERTENSION - adding Norvasc and will maximize as we, hopefully, can stop Hydralazine at some point. 4. DIABETES - continue current plan of care. 5. ABNORMAL EKG - LVH strain pattern. Echo reveals no significant abnormality. 6. S/P PERFORATED GASTRIC ULCER REPAIR - stable. 7. MARIJUANA USE - greater than 5 minutes was spent discussing the merits of cessation. Exam (Progress Note) - Constitutional Vitals: Period Temp Pulse Resp BP Sys/Frias Pulse Ox Last 24 Hr 97.7 F-98.7 F 54-127 10-31 124-188/64-102 95-100 Exam: General: [Appears well with no apparent distress.] [Pleasant and cooperative. ] [Appears comfortable.] HEENT: [Normocephalic, atraumatic. Mucous membranes moist. No jaundice noted. Conjunctiva moist and clear, sclerae anicteric. Poor dentition noted] Neck: No JVD/HJR, no thyromegaly or lymphadenopathy noted. No carotid bruit appreciated Cardiac: [Regular rate and rhythm.] [No obvious murmur rub or gallop.] Lungs: [Clear to auscultation without accessory muscle use to assist the respiratory pattern.] Using oxygen intermittently. Abdomen: Soft, bowel sounds hypoactive. Slight distention noted. Dressing dry and intact. Musculoskeletal: No fluid collection. Decreased range of motion is noted. Extremities: No clubbing, cyanosis noted. [ No edema noted.] Upper extremity pulses 2+. Lower extremity pulses 2+. Capillary refill less than 3 seconds. Skin: No unusual lesions or rashes. No skin breakdown appreciated. Neuro: Awake, alert and oriented 3. Moves all extremities well without hemiparesis or paralysis. No essential tremor is appreciated. Result/EKG - Labs CBC & BMP: 05/24/17 04:34 05/24/17 04:34 Lab Results: I have reviewed the past 24 hour labs Labs: Laboratory Results - last 24 hr 05/23/17 05/23/17 05/24/17 08:40 11:06 04:34 WBC 10.7 RBC 3.35 L Hgb 9.9 L Hct 28.9 L MCV 86.3 L MCH 30 MCHC 34.3 RDW 13.6 Plt Count 283 D MPV 10.5 Neut % (Auto) 62.6 Lymph % (Auto) 21.3 [place] % (Auto) 11.1 Eos % (Auto) 3.8 Baso % (Auto) 0.3 Neut # (Auto) 6.7 Lymph # (Auto) 2.3 [place] # (Auto) 1.2 H Eos # (Auto) 0.4 Baso # (Auto) 0.0 Immature Gran % 0.9 Nucleated RBC % 0.0 Immature Gran # 0.10 Nucleated RBCs # 0.00 Sodium Potassium Chloride Carbon Dioxide Anion Gap BUN Creatinine GFR Calculation BUN/Creatinine Ratio Glucose POC Glucose 278 H 212 H Calculated Osmolality Calcium Magnesium 05/24/17 04:34 WBC RBC Hgb Hct MCV MCH MCHC RDW Plt Count MPV Neut % (Auto) Lymph % (Auto) [place] % (Auto) Eos % (Auto) Baso % (Auto) Neut # (Auto) Lymph # (Auto) [place] # (Auto) Eos # (Auto) Baso # (Auto) Immature Gran % Nucleated RBC % Immature Gran # Nucleated RBCs # Sodium 139 Potassium 3.9 Chloride 104 Carbon Dioxide 27 Anion Gap 11.9 BUN 9 Creatinine 0.90 GFR Calculation 101 BUN/Creatinine Ratio 10.00 Glucose 129 H POC Glucose Calculated Osmolality 277.5 Calcium 8.6 Magnesium 1.8 - Diagnostic Findings Procedure: Chest x-ray: report reviewed by me - EKG EKG results: interpreted by me EKG shows: sinus rhythm Quality Measures - VTE Contraindication to Pharmacological VTE Prophylaxis: Active Bleeding
[2017-05-24] MEDS ORDERED: amLODIPine 5 MG TABLET PO SCH (09:30)
--- NOTE | 2017-05-24 11:33 | Discharge Summary ---
Hospital Course - Hospital Course Hospital Course: Mr. Riojas is a 61-year-old -Liberian male with history of hypertension, diabetes, marijuana use admitted on 05/22/2017 with near syncope and fall. He was diagnosed with a left lobe liver laceration and large subscapular hematoma with anemia. He did require a blood transfusion. He had recently been admitted on 05/16/2017 with acute abdominal pain and was found to have a perforated duodenal bulb ulcer with peritonitis and he underwent a laparoscopic repair by Dr. Martins. He had been discharged on 05/18 in stable condition on pain medicines and H. pylori triple therapy. Cardiology was consulted due to the near syncopal episode and they also followed him on his hospital stay last week. No arrhythmia was noted though the patient does have a history of bradycardia for which he says he sees a rock splitter in [place]. Patient is now stating he does not have a rock splitter in [place] and wants to follow up with somebody here. His blood pressure meds have been adjusted and he is tolerating a diet and he is ready for discharge home. His H&H is also stable at this time. He will be discharged home with a follow-up with his family physician in 2 weeks and a follow-up with Dr. Shaw from cardiology in 4-6 weeks. He will continue with his pain meds and triple therapy that were given to him previously and keep his follow-up appointment with Dr. Martins already scheduled. Patient's case was discussed with Grace Duron ACNP for cardiology, patient, child welfare caseworker and nursing. Care coordination, discharge paperwork, and chart review all took approximately 36 minutes. - Time spent with patient Time with patient DS: Greater than 30 minutes Diagnosis - Discharge Diagnosis (1) Status post duodenal ulcer repair Status: Resolved (2) Hypertension Status: Chronic (3) Diabetes Status: Chronic (4) Marijuana use Status: Chronic (5) Liver hematoma Status: Acute (6) Near syncope Status: Resolved (7) Anemia Status: Resolved Discharge Plan - Discharge Data Disposition: Disch To Home/Self Care Condition at Discharge: Stable Discharge Diet: advance to your usual diet Activity: increase activity as tolerated, no lifting Hygiene: may shower Driving: not until seen by doctor (No driving if taking pain meds) Contact your physician if you experience:: Nausea/Vomiting - Discharge Medications New amLODIPine [Norvasc] 5 mg PO DAILY #60 tablet Continue metFORMIN [Glucophage] 500 mg PO DAILY W/BREAKFAST Aspirin 81 mg PO DAILY Clarithromycin [Biaxin] 500 mg PO Q12HR #28 tablet Meperidine Tab [Demerol Tab] 50 mg PO Q4H #30 tablet Pantoprazole Tab [Protonix Tab] 40 mg PO BID #90 tablet Amoxicillin Cap/Tab 1,000 mg PO Q12HR #28 capsule Atenolol [Tenormin] 25 mg PO DAILY #30 tablet Lisinopril [Prinivil] 20 mg PO BID #60 tablet - Follow Up or Referral Follow Up: Aisha Godinez MD [Physician] - 1 Month your, PCP [Other] - 2 Weeks Michel Martins MD [Physician] - (keep already scheduled appt) - Forms/Instructions Exam - Constitutional Vitals: Period Temp Pulse Resp BP Sys/Frias Pulse Ox Last 24 Hr 97.7 F-98.7 F 54-127 10-30 124-188/64-98 95-100 Exam: 61-year-old -Liberian male, no acute distress, alert and oriented Chest clear CV regular rate and rhythm Abdomen soft appropriately tender incisions look good Extremities no edema Discharge Results Procedures and tests throughout hospitalization: Pending Orders 05/21/17 18:51 Blood Culture Stat 05/24/17 06:40 MRSA Surveillence, Inf Control Routine 05/25/17 04:00 Basic Metabolic Panel w/Mg IN AM Comp Blood Count Auto Diff IN AM Partial Thromboplastin Time IN AM Prothrombin Time INR IN AM 05/26/17 04:00 Basic Metabolic Panel w/Mg IN AM Comp Blood Count Auto Diff IN AM Labs on day of discharge: Labs from last 24 hours 05/24/17 05/24/17 05/23/17 04:34 04:34 11:06 WBC 10.7 RBC 3.35 L Hgb 9.9 L Hct 28.9 L MCV 86.3 L MCH 30 MCHC 34.3 RDW 13.6 Plt Count 283 D MPV 10.5 Neut % (Auto) 62.6 Lymph % (Auto) 21.3 [place] % (Auto) 11.1 Eos % (Auto) 3.8 Baso % (Auto) 0.3 Neut # (Auto) 6.7 Lymph # (Auto) 2.3 [place] # (Auto) 1.2 H Eos # (Auto) 0.4 Baso # (Auto) 0.0 Immature Gran % 0.9 Nucleated RBC % 0.0 Immature Gran # 0.10 Nucleated RBCs # 0.00 Sodium 139 Potassium 3.9 Chloride 104 Carbon Dioxide 27 Anion Gap 11.9 BUN 9 Creatinine 0.90 GFR Calculation 101 BUN/Creatinine Ratio 10.00 Glucose 129 H POC Glucose 212 H Calculated Osmolality 277.5 Calcium 8.6 Magnesium 1.8 05/23/17 08:40 WBC RBC Hgb Hct MCV MCH MCHC RDW Plt Count MPV Neut % (Auto) Lymph % (Auto) [place] % (Auto) Eos % (Auto) Baso % (Auto) Neut # (Auto) Lymph # (Auto) [place] # (Auto) Eos # (Auto) Baso # (Auto) Immature Gran % Nucleated RBC % Immature Gran # Nucleated RBCs # Sodium Potassium Chloride Carbon Dioxide Anion Gap BUN Creatinine GFR Calculation BUN/Creatinine Ratio Glucose POC Glucose 278 H Calculated Osmolality Calcium Magnesium Preliminary micro results at discharge 05/21/17 18:51 Blood Culture - Preliminary Blood No growth at 1 day 05/21/17 18:43 Blood Culture - Preliminary Blood No growth at 1 day DS: Provider Date of admission: 05/21/17 20:38 Primary care physician: . No PCP Attending physician on admission: Sahil Grissom MD Consults: 05/22/17 06:45 Consult to Physician [CONS] Routine Comment: Consulting Provider: Broderick Jenkins Consult to Specialist Group: Cardiology When should Consulting Provider be notified: Now Person Notified: Dr. Jenkins Date Notified: 05/22/17 Time Notified: 07:28 Consult Notification Comment: Look at the ST segment depression changes on this patient please. History of a syncopal episode now with a liver laceration Discharging clinician: KIRAN Pulido Expected date of discharge: 05/24/17
[2017-05-24 12:23] VITALS: BP 188/94
== END 2017-05-24 13:50 | disposition home or self-care (01) | DRG 442 ==
LOC: N.ED 17:10 → N.EDINP 20:38 → SUATTDRO 20:38 → N.CC 21:02
PROVIDERS: ADMIT Specialist; ATTEND Surgery

== ENCOUNTER 2017-07-20 09:51 | Inpatient (IN) ==
[2017-07-20] MEDS ORDERED: SODIUM CHLORIDE 0.9% 1,000 ML IV STA (10:07)
[2017-07-20] MEDS ORDERED: PANTOPRAZOLE 40 MG VIAL IV STA (10:07)
[2017-07-20] MEDS ORDERED: ONDANSETRON 4 MG/2 ML VIAL IV STA (10:07)
[2017-07-20] MEDS ORDERED: METOPROLOL TARTRATE 5 MG/5 ML VIAL IV STA (10:08)
--- NOTE | 2017-07-20 10:18 | Emergency Department Note ---
Kemar Nunes Brittany, am scribing for, and in the presence of, Terry Rojas MD 10: 15. Crystal Nunes James D, MD, personally performed the services described in this documentation, ascribed by Shazia Reinoso in my presence, and it is both accurate and complete . Arrival - Arrival Chief Complaint: GI Bleed/Rectal Stated Complaint: bleeding ED Nursing Triage Note: states has blood in stool onset yesterdas. started out as abd pain and constipation so pt took a laxative and now is passing just blood. Mode of Arrival: Ambulatory Limitations: No Limitations Source: Patient Time Seen by Provider: 07/20/17 10:02 - History of Present Illness HPI Narrative: This is a 62 y/o black male,who presents to the ED for further evaluation of a possible lower GI bleed which started yesterday. He states yesterday he was constipated and took a laxative. He states now the blood is bright red in color and he has noticed only blood. He states he does have mild abdominal pain. He reports he has had similar Sx in the past. His states pt has an appointment for an EGD in the next few weeks. Pt denies any vomiting but notes nausea. Pt has no other complaints/pain in the ED at this time. Pt has a PMhx of HTN, NIDDM, irregular heart rate, GERD, and back/neck problems. Pt has had an eye surgery and orthopedic surgery. Pt has a family medical Hx of diabetes and HTN. Pt is a current some day smoker. Onset (ago): day(s) (Started yesterday) Consistency: constant Severity: moderate, severe, similar to previous episodes Allergies/Adverse Reactions: Allergies Allergy/AdvReac Type Severity Reaction Status Date / Time codeine Allergy Intermediate ITCHING Verified 05/21/17 17:19 Home Medications: Home Medications Medication Instructions Recorded Confirmed Type Aspirin 81 mg PO QAM 05/16/17 07/20/17 History metFORMIN [Glucophage] 500 mg PO DAILY W/BREAKFAST 05/16/17 07/20/17 History Lisinopril [Prinivil] 20 mg PO BID #60 tablet 05/19/17 07/20/17 Rx Pantoprazole Tab [Protonix Tab] 40 mg PO BID #90 tablet 05/19/17 07/20/17 Rx Amlodipine Besylate 10 mg PO QAM 07/20/17 07/20/17 History Atenolol [Tenormin] 25 mg PO QAM 07/20/17 07/20/17 History Review of System - Review of System 12 point system: reviewed and no additional remarkable complaints except as stated - Review of System Gastrointestinal: Present: abdominal pain (Mild abdominal pain ), nausea, hematochezia. Absent: vomiting Medical,Surgical,& Family Hx - Medical History Cardio: History of: Cardiac Dysrhythmia, Hypertension, Cardiovascular Problems ( irregular heart rate) No history of: CAD, [place] HEENT: History of: Eye Problem (cataract right eye) Endocrine: History of: Diabetes Mellitus (NIDDM) Gastrointestinal: History of: GERD, Gastrointestinal Bleed Musculoskeletal: History of: Back/Neck Problems (back and left shoulder pain) - Surgical History HEENT Surgeries: Surgical HX of: Eye Surgery ("eye surgery in right eye") Orthopedic Surgeries: Surgical HX of;: Orthopedic Surgery ("Back surgery years ago") - Family History Family History: Reports;: Family Diabetes (mother, three sisters), Family Hypertension (sister) - Social History Smoking Status: Current some day smoker Frequency of Alcohol Use: None Type of Drug Use: None Exam Vital Signs: Vital Signs Temperature 97.5 F L 07/20/17 09:54 Pulse Rate 104 H 07/20/17 09:54 Respiratory Rate 18 07/20/17 09:54 Blood Pressure 202/119 07/20/17 09:54 O2 Sat by Pulse Oximetry 97 07/20/17 09:54 GENERAL: This is a well-nourished well-developed black male in no apparent distress. VITAL SIGNS: Reviewed HEENT: Head is atraumatic and normocephalic. Pupils are equal round react to light. Conjunctiva are pink. Extraocular movements are intact. Oropharynx is benign with moist mucous membranes. NECK: Neck is soft and supple without tenderness. There are no masses. There is no lymphadenopathy. LUNGS: Lungs are clear to auscultation. Chest rises symmetrically. There is no chest wall tenderness. CV: Heart is regular rate and rhythm without murmurs rubs or gallops. ABDOMEN: Abdomen is soft, tender to palpation in the upper quadrants bilaterally without rebound or guarding. There are no abdominal abnormal masses palpated. There is no organomegaly. Bowel sounds are present and active. Rectal: Heme positive stool present in the vault. Good rectal tone. No masses. SKIN: Skin is warm and dry. No rash. EXTREMITIES: Patient has full range of motion without tenderness. There is no pedal edema. NEUROLOGIC: Awake alert and oriented 4. Cranial nerves II through XII are grossly intact. Motor is 5 over 5 in all extremities bilaterally. Deep tendon reflexes are 2+ and bilaterally equal. Course Course Narrative: Patient is not felt to be a candidate for left heart cath and PCI due to his inability to be a candidate for anticoagulation due to his GI bleeding. - Consultations Consultation #1: Discussed with Dr. Hale. He is in agreement that EKG changes are nonspecific. Time: 11:00 Consultation #2: Discussed with hospitalist. Patient will be admitted to their service. Time: 11:35 Results - Labs CBC & BMP: 07/20/17 10:17 07/20/17 10:17 Lab Results: I have reviewed the patients labs Labs: Laboratory Tests 07/20/17 10:17 INR 1.0 Laboratory Tests 07/20/17 07/20/17 10:17 12:11 Glucose 256 H Troponin I 1.010 H - EKG EKG results: interpreted by ERMD - Impressions EKG: Normal sinus rhythm with a rate of 61, nonspecific ST-T wave changes, old septal FL. - Diagnostic Findings Procedure: Abdominal x-ray: image reviewed by me (Nonspecific gas pattern, gas in the rectum, no free air.), Chest x-ray: image reviewed by me (Mild cardiomegaly, no infiltrates, no pleural effusions.) Disposition Clinical Impression: Acute GI bleeding, Essential hypertension, Abnormal EKG, Diabetes mellitus Case discussed with: patient, patient's family Disposition: Still a Patient Condition: Guarded Time of Disposition: 11:32
[2017-07-20] MEDS ORDERED: METOPROLOL TARTRATE 5 MG/5 ML VIAL IV ONE (10:25)
[2017-07-20] MEDS ORDERED: PANTOPRAZOLE 40 MG VIAL IV ONE (10:25)
[2017-07-20] MEDS ORDERED: ONDANSETRON 4 MG/2 ML VIAL ONE (10:25)
[2017-07-20 10:28] LABS: Basophils # 0.1 10*3/uL (0.0-0.2); Basophils % 0.4 % (0.0-0.8); Hematocrit 45.5 VOL% (42.0-52.0); Hemoglobin 15.8 GM/DL (14.0-18.0); Immature Granulocytes % 0.5 %; Immature Granulocytes Absolute 0.07 #; Lymphocytes # 1.6 10*3/uL (1.4-4.0); Lymphocytes % 11.5 % (21.2-54.2); Mean Corpuscular HGB Conc 34.7 GM/DL (32-36); Mean Corpuscular Hemoglobin 29 PG (27-34); Mean Platelet Volume 12.3 FL (9.6-12.0); Monocytes # 1.1 10*3/uL (0.11-0.8); Monocytes % 8.1 % (1.7-12.7); Neutrophils % 79.5 % (38.7-73.9); Platelet Count 218 T/CUMM (130-400); Red Blood Count 5.48 MC/CUMM (3.8-5.5); Red Cell Distribution Width 13.2 % (9.3-17.3); White Blood Count 13.8 T/CUMM (4-12)
[2017-07-20 10:54] LABS: PT Patient Result 10.7 SECS; Partial Thromboplastin Time 29.6 SECS (0-40)
--- NOTE | 2017-07-20 11:02 | XRay Report ---
XR chest 1V portable Indication: SOB Comparison: Chest x-ray dated May 16, 2017 Technique: Single frontal view of the chest. Findings: Borderline heart size. No focal consolidation, pleural effusion, or pneumothorax. Visualized osseous and surrounding soft tissue structures appear grossly unchanged. IMPRESSION: Borderline cardiomegaly without jluis pulmonary edema. PROCEDURE INTERPRETED AT [facility] DEPARTMENT OF RADIOLOGY Final Report Signed by: Dr Rancho Gardner
--- NOTE | 2017-07-20 11:03 | XRay Report ---
XR abdomen 2V Indication: Generalized abdominal pain Comparison: Abdominal x-ray dated May 21, 2017 Technique: Frontal views of the abdomen in the supine and upright position. Findings: Nonspecific nonobstructive bowel gas pattern. No free intraperitoneal air. Visualized osseous and surrounding soft tissue structures appear grossly unchanged. Posterior fusion hardware and laminectomy change of the lower lumbosacral spine. IMPRESSION: No acute abnormality demonstrated. PROCEDURE INTERPRETED AT [facility] DEPARTMENT OF RADIOLOGY Final Report Signed by: Dr Rancho Gardner
[2017-07-20 11:07] LABS: Bilirubin,Total 0.5 MG/DL (0.2-1.0); Calcium 9.7 MG/DL (8.5-10.1); Osmolality,Calculated 281.1 MOS/KG (273-304); Total Protein 8.1 G/DL (6.4-8.3)
--- NOTE | 2017-07-20 11:08 | EKG Report ---
Stationary ECG Study [facility] ER Test Date: 07/20/2017 11:06:55 AM Pat Name: LOLIS BLANTON Department: Room: Gender: M [employer]: : 1955 Requested by: Terry Wong Order Number: [id number] Reading MD: INES URIBE Intervals [place] Rate: 61 P: 54 TX: 176 QRS: -5 QRSD: 99 T: 261 QT: 437 QTc: 440 Interpretive Statements SINUS RHYTHM LEFT VENTRICULAR HYPERTROPHY AND ST-T CHANGE Electronically Signed On 07-20-17 15:42:05 CDT by INES URIBE [email or web address]
[2017-07-20] MEDS ORDERED: fentaNYL 100 MCG/2 ML VIAL IV STA (11:10)
[2017-07-20] MEDS ORDERED: fentaNYL 100 MCG/2 ML VIAL ONE (11:13)
[2017-07-20] MEDS ORDERED: SODIUM CHLORIDE 0.9% 1,000 ML IV SCH (12:30)
[2017-07-20] MEDS ORDERED: DEXTROSE 50% 25 GM/50 ML SYRINGE IV PRN (12:35)
[2017-07-20] MEDS ORDERED: GLUCAGON 1 MG VIAL IM PRN (12:35)
--- NOTE | 2017-07-20 12:50 | Hospitalist History & Physical ---
<Ashly Tate - Last Filed: 07/20/17 14:04> Assessment and Plan (1) Abnormal EKG Status: Acute Assessment and plan: ST elevation noted. Troponin also elevated at 1.010. Consult cardiology. cardiac monitoring. Serial enzymes and ekgs. Current Visit: Yes (2) Acute GI bleeding Status: Acute Assessment and plan: Consult GI. NPO for now. IVF at 125 ml/hr. PPI bid. Current Visit: Yes (3) Diabetes mellitus Status: Acute Assessment and plan: Accuchecks achs. SSI. Current Visit: Yes (4) Essential hypertension Status: Acute Assessment and plan: Restart home meds. Prn IV antihypertensive. Current Visit: Yes (5) Status post duodenal ulcer repair Status: Resolved Current Visit: No History of Present Illness Chief complaint: Rectal bleeding History of present illness: Mr. Riojas is a 62 year old black male with a history of GERD, hypertension, diabetes, irregular heart rate, chronic back problems that presented to the ED today for further evaluation of rectal bleeding. Patient is accompanied by his sister who is present at the bedside. Patient states that on Wednesday he began to have some abdominal pain. He went to the bathroom, had a bowel movement, and noted a black color to his stool. Pt. states that as the day went on, he had frequent bowel movements with loose black stool. Pt. states that he also experienced a subjective fever, chills, nausea with no vomiting and abdominal pain. Pt. denies chest pain but some mild shortness of breath at breath. Today pt reported that the stool was bright red. He stated that he is scheduled for an EGD on the . He also reports a recent hospitalization where he underwent a duodenal repair. On exam in the ED, pt had a WBC of 13.8, Na 135, K 4, Bun 21 , creatinine 1.30, and glucose of 256. Pt. also noted to have abnormal EKG. Pt' s troponin was noted at 1.010. Pt's case has been discussed with Dr. Kirby and he will be admitted. Cardiology has been consulted. Home Medications Medication Instructions Recorded Confirmed Type Aspirin 81 mg PO QAM 05/16/17 07/20/17 History metFORMIN [Glucophage] 500 mg PO DAILY W/BREAKFAST 05/16/17 07/20/17 History Lisinopril [Prinivil] 20 mg PO BID #60 tablet 05/19/17 07/20/17 Rx Pantoprazole Tab [Protonix Tab] 40 mg PO BID #90 tablet 05/19/17 07/20/17 Rx Amlodipine Besylate 10 mg PO QAM 07/20/17 07/20/17 History Atenolol [Tenormin] 25 mg PO QAM 07/20/17 07/20/17 History Allergies Allergy/AdvReac Type Severity Reaction Status Date / Time codeine Allergy Intermediate ITCHING Verified 05/21/17 17:19 Medical,Surgical,& Family Hx - Medical History Cardio: History of: Cardiac Dysrhythmia, Hypertension, Cardiovascular Problems ( irregular heart rate) No history of: CAD, [place] HEENT: History of: Eye Problem (cataract right eye) Endocrine: History of: Diabetes Mellitus (NIDDM) Gastrointestinal: History of: GERD, Gastrointestinal Bleed Musculoskeletal: History of: Back/Neck Problems (back and left shoulder pain) - Surgical History HEENT Surgeries: Surgical HX of: Eye Surgery ("eye surgery in right eye") Orthopedic Surgeries: Surgical HX of;: Orthopedic Surgery ("Back surgery years ago") - Family History Family History: Reports;: Family Diabetes (mother, three sisters), Family Hypertension (sister) - Social History Smoking Status: Current some day smoker Frequency of Alcohol Use: Rarely Type of Drug Use: None Marital Status: Single Lives With:: Parent Functional capacity: independent ambulation - Constitutional Constitutional: Present: chills, fever(s). Absent: night sweats - EENT Ears: Absent: decreased hearing Nose, mouth and throat: Absent: epistaxis - Cardiovascular Cardiovascular: Present: dyspnea. Absent: chest pain at rest, edema - Respiratory Respiratory: Present: dyspnea - Gastrointestinal Gastrointestinal: Present: abdominal pain, diarrhea, nausea. Absent: vomiting - Genitourinary Genitourinary: Absent: difficulty urinating, urinary incontinence - Musculoskeletal Musculoskeletal: Present: back pain - Psychiatric Psychiatric: Absent: confusion Exam - Constitutional Vitals: Period Temp Pulse Resp BP Sys/Frias Pulse Ox Last 24 Hr 97.5 F 104 18 202/119 97 General appearance: no acute distress, over weight - Head Head exam: Present: normal inspection, normocephalic - Eye Eye exam: Present: EOMI Pupils: Present: MALACHI - ENT ENT exam: Present: normal exam - Respiratory Respiratory exam: Present: clear to auscultation bilaterally. Absent: wheezes - Cardiovascular Cardiovascular exam: Present: regular rate and rhythm - GI/Abdominal GI/Abdominal exam: Present: normal bowel sounds, tenderness, soft - Extremities Exam Extremities exam: Present: normal capillary refill, full ROM. Absent: edema - Back Exam Back exam: Present: normal inspection - Neurological Exam Neurological exam: Present: alert, oriented X3 - Psychiatric Psychiatric exam: Present: normal affect, normal mood - Skin Skin exam: Present: normal color, warm, dry Results - Labs CBC & BMP: 07/20/17 10:17 07/20/17 10:17 Lab Results: I have reviewed the past 24 hour labs <KofiTherese R - Last Filed: 07/20/17 14:57> Assessment and Plan (1) Elevated troponin Status: Chronic Assessment and plan: Discussed case with Dr. Hale and he does not feel that the EKG shows any significant ST elevation in the septal leads. Cardiology feels elevated troponin was due to supply and demand Current Visit: No (2) Acute GI bleeding Status: Acute Assessment and plan: serial hemoglobins, EKGs, trop and cardiology consult Current Visit: Yes (3) Essential hypertension Status: Chronic Assessment and plan: coreg 12.5 mg po bid stat Current Visit: Yes (4) Diabetes mellitus Status: Chronic Assessment and plan: hemoglobin A1c in am Current Visit: Yes (5) Alcohol use Status: Chronic Assessment and plan: uds and alcohol Current Visit: Yes History of Present Illness History of present illness: Mr. Riojas is a 62 year old male seen and examined. Agree with above. EKG shows ST elevation in the septal leads and a peak troponin of 1. I have spoken with Dr. Coates in the emergency room and he had already spoke with Dr. Hale from Cardiology he declined patient for admission due to the fact that he had a GI bleed. Patient reports abdominal pain but does not report any chest pain whatsoever. He has severe hypertension and I will give him a now dose of Coreg. Patient denies any shortness of breath at this time are lower extremity edema. Patient says he takes an aspirin faithfully every day. He has never had a heart cath before and never seen a cast associate. Patient does have a history of an irregular heart rate but has never been on any anticoagulation. As noted above his bowels started out black and tarry on Wednesday but then became bright red blood this morning. Patient is hemodynamically stable - EENT Eyes: Absent: blurry vision, diplopia - Cardiovascular Cardiovascular: Present: dyspnea on exertion - Respiratory Respiratory: Present: dyspnea on exertion - Neurological Neurological: Absent: confusion, headache(s), syncope - Psychiatric Psychiatric: Absent: depression - Endocrine Endocrine: Present: fatigue. Absent: cold intolerance - Hematologic/Lymphatic Hematologic/Lymphatic: Absent: easy bleeding, easy bruising Exam - Constitutional Vitals: Period Temp Pulse Resp BP Sys/Frias Pulse Ox Last 24 Hr 97.5 F-97.5 F 86-104 18-20 189-202/110-119 97-99 General appearance: normal weight - Eye Eye exam: Absent: scleral icterus Pupils: Present: normal accommodation - ENT ENT exam: Present: normal external ear exam - Respiratory Respiratory exam: Absent: rhonchi - Cardiovascular Cardiovascular exam: Absent: systolic murmur - Neurological Exam Neurological exam: Present: CN II-XII intact, reflexes normal. Absent: motor sensory deficit Results - Labs CBC & BMP: 07/20/17 10:17 07/20/17 10:17 Labs: troponin of 1 - EKG EKG shows: sinus rhythm (ST elevation in septal leads ) - Diagnostic Findings Procedure: Abdominal x-ray: report reviewed by me (No obstruction), Chest x-ray : report reviewed by me (Cardiomegaly without jluis pulmonary edema)
--- NOTE | 2017-07-20 13:57 | Cardiology Consult Note ---
Assessment and Plan - Time spent with patient Time spent with patient: Greater than 30 minutes Time spent discussing smoking cessation with patient: 3 to 10 minutes (1) Alcohol use Status: Chronic Assessment and plan: SEE PLAN OF CARE LISTED BELOW Current Visit: Yes (2) Abnormal EKG Status: Chronic Assessment and plan: SEE PLAN OF CARE LISTED BELOW Current Visit: Yes (3) Acute GI bleeding Status: Acute Assessment and plan: SEE PLAN OF CARE LISTED BELOW Current Visit: Yes (4) Diabetes mellitus Status: Chronic Assessment and plan: SEE PLAN OF CARE LISTED BELOW Current Visit: Yes (5) Essential hypertension Status: Chronic Assessment and plan: SEE PLAN OF CARE LISTED BELOW Current Visit: Yes (6) Epigastric pain Status: Acute Assessment and plan: SEE PLAN OF CARE LISTED BELOW Current Visit: No (7) Hypertension Status: Chronic Assessment and plan: SEE PLAN OF CARE LISTED BELOW Current Visit: No (8) Marijuana use Status: Chronic Assessment and plan: SEE PLAN OF CARE LISTED BELOW Current Visit: No (9) Elevated troponin Status: Chronic Assessment and plan: SEE PLAN OF CARE LISTED BELOW Current Visit: No History of Present Illness - Data of Consult Patient: known to practice within the last 3 years Consult date: 07/20/17 Requesting Physician: Therese Kirby - Consult Narrative Reason for consult: Abnormal EKG, elevated troponin History of present illness: [facility] CONTROL SPECIALIST: DR. MOTLEY has seen in the past. Previously seen a clinic assistant in [place], [place], name unknown). Patient is being seen in the emergency department. Mr. Riojas, 61BM, is followed by clinic assistant in [place], [place] for slow heart rate. Name of clinic assistant is unknown and it has been several years since Mr. Riojas has followed up. Risk factors include: hypertension, diabetes , marijuana use, sedentary lifestyle. History of perforated gastric ulcer April 2017 requiring multiple transfusions. History of anemia resulting in near syncope with fall and laceration of his liver May 2017 (also required transfusions during that hospital stay). Presented to the ED of [facility] this morning after experiencing bright red bleeding from the rectum which began on Wednesday. EKG was obtained, troponin obtained. Both of which were abnormal and cardiology was consulted. Patient denies chest pain, heaviness, tightness. Reports that he has no prior history of known coronary disease and previously saw a clinic assistant in [place] for an irregular heart rhythm. He states he is usually fairly active and can perform his usual activities without complaints of angina. In review of prior EKGs, the EKG today actually seems to be improved. Troponins have been elevated in the past as well and appear to be flat. Will continue cycle and follow along. This is not an acute ID. . Patient has a history of perforated gastric ulcer in April 2017. He had severe bleeding at that point requiring several units of packed red blood cells. He has been having intermittent bright red bleeding from the rectum and was actually scheduled for EGD in the next few weeks. IMPRESSION/PLAN: 1. ABNORMAL EKG - patient's EKG is abnormal however this is not an acute ID. In comparison to the May 18, 2017 EKG, EKG is much improved. 2. ELEVATED TROPONIN - patient's troponin is 1.0. During the prior admissions it is noted to be 0.98-0.974. Again, it is felt that this is not an acute ID. He is having no chest pain, heaviness tightness or shortness of breath. 3. HYPERTENSION - usually well controlled. Will adjust medications accordingly during hospital stay 4. DYSLIPIDEMIA - FLP in the a.m. Continue lipid-lowering agent as able. 5. GI BLEED -history of severe GI bleed requiring multiple transfusions. At this point, would not dose with Lovenox or Aspirin as he is having no chest pain or symptoms concerning for angina. 6. TOBACCO USE - greater than 5 minutes was spent today discussing the merits of tobacco cessation 7. MARIJUANA USE - greater than 5 minutes was spent today discussing the merits of marijuana since CC: Therese Kirby MD - Home Medications and Allergies Home Medications: Home Medications Medication Instructions Recorded Confirmed Type Aspirin 81 mg PO QAM 05/16/17 07/20/17 History metFORMIN [Glucophage] 500 mg PO DAILY W/BREAKFAST 05/16/17 07/20/17 History Lisinopril [Prinivil] 20 mg PO BID #60 tablet 05/19/17 07/20/17 Rx Pantoprazole Tab [Protonix Tab] 40 mg PO BID #90 tablet 05/19/17 07/20/17 Rx Amlodipine Besylate 10 mg PO QAM 07/20/17 07/20/17 History Atenolol [Tenormin] 25 mg PO QAM 07/20/17 07/20/17 History Allergies/Adverse Reactions: Allergies Allergy/AdvReac Type Severity Reaction Status Date / Time codeine Allergy Intermediate ITCHING Verified 05/21/17 17:19 Review of systems: REVIEW OF SYSTEMS: - Constitutional Constitutional: Present: Fatigue. Absent: syncope, anorexia, night sweats - EENT Eyes: Absent: blurry vision, loss of vision, diplopia Ears: Absent: decreased hearing, ear pain, ear discharge - Cardiovascular Cardiovascular: Denies chest pain with exertion, edema. Reports occasional palpitations. Mild dyspnea on exertion but nonlimiting. No chest pain with deep breath - Respiratory Respiratory: Denies cough. Absent: wheezing, hemoptysis, change in phlegm color - Gastrointestinal Gastrointestinal: Present: constipation now with bright red bleeding from the rectum. Mild abdominal pain noted in the epigastric area and occasionally tender across the bilateral lower abdominal quadrants. Absent: Denies vomiting of blood or dysphagia - Genitourinary Genitourinary: Absent: difficulty urinating, dysuria, urinary hesitancy, flank pain - Musculoskeletal Musculoskeletal: Present: back pain Absent: joint swelling, muscle cramps, muscle weakness - Neurological Neurological: Present: normal gait without frequent falls. Absent: dizziness, hemiparesis - Psychiatric Psychiatric: Absent: anxiety, depression, difficulty concentrating - Endocrine Endocrine: Present: fatigue. Absent: cold intolerance, heat intolerance, polyuria, polyphagia, polydipsia - Hematologic/Lymphatic Hematologic/Lymphatic: Present: easy bruising. Absent: easy bleeding -Integumentary Integumentary: Absent: lesions, rashes, skin breakdown Medical,Surgical,& Family Hx - Medical History Cardio: History of: Cardiac Dysrhythmia, Hypertension, Cardiovascular Problems ( irregular heart rate) No history of: CAD, [place] HEENT: History of: Eye Problem (cataract right eye) Endocrine: History of: Diabetes Mellitus (NIDDM) Gastrointestinal: History of: GERD, Gastrointestinal Bleed Musculoskeletal: History of: Back/Neck Problems (back and left shoulder pain) - Surgical History HEENT Surgeries: Surgical HX of: Eye Surgery ("eye surgery in right eye") Orthopedic Surgeries: Surgical HX of;: Orthopedic Surgery ("Back surgery years ago") - Family History Family History: Reports;: Family Diabetes (mother, three sisters), Family Hypertension (sister) - Social History Smoking Status: Current some day smoker Have you smoked in the last 12 months: Yes Time spent discussing smoking cessation with patient: 3 to 10 minutes Frequency of Alcohol Use: None Type of Drug Use: None Marital Status: Lives With:: Spouse Functional capacity: independent ambulation Physical Examination Vital Signs Temp Pulse Resp BP Pulse Ox 97.5 F L 104 H 18 202/119 97 07/20/17 09:54 07/20/17 09:54 07/20/17 09:54 07/20/17 09:54 07/20/17 09:54 Exam: General: [Appears well with no apparent distress.] [Pleasant and cooperative. ] [Appears comfortable.] HEENT: [Bilateral arcus, normocephalic, atraumatic. Mucous membranes moist. No jaundice noted. Conjunctiva moist and clear, sclerae anicteric] Neck: No JVD/HJR, no thyromegaly or lymphadenopathy noted. No carotid bruit appreciated Cardiac: [Regular rate and rhythm.] [No obvious murmur rub or gallop.] Lungs: [Clear to auscultation without accessory muscle use to assist the respiratory pattern.] Not requiring oxygen Abdomen: Soft, bowel sounds normoactive. Tender in epigastric area and in lower quadrant abdominal areas bilaterally. No abdominal bruit or thrill noted. Musculoskeletal: No fluid collection. Decreased range of motion is noted. Extremities: No clubbing, cyanosis noted. [ No edema noted.] Upper extremity pulses 2+. Lower extremity pulses 2+. Capillary refill less than 3 seconds. Skin: No unusual lesions or rashes. No skin breakdown appreciated. Neuro: Awake, alert and oriented 3. Moves all extremities well without hemiparesis or paralysis. No essential tremor is appreciated. Result/EKG - Labs CBC & BMP: 07/20/17 10:17 07/20/17 10:17 Lab Results: I have reviewed the past 24 hour labs Labs: Laboratory Results - last 24 hr 07/20/17 07/20/17 07/20/17 10:17 10:17 10:17 WBC 13.8 H RBC 5.48 Hgb 15.8 Hct 45.5 MCV 83.0 L MCH 29 MCHC 34.7 RDW 13.2 Plt Count 218 MPV 12.3 H Neut % (Auto) 79.5 H Lymph % (Auto) 11.5 L Dodge % (Auto) 8.1 Eos % (Auto) 0.0 Baso % (Auto) 0.4 Neut # (Auto) 11.0 H Lymph # (Auto) 1.6 Dodge # (Auto) 1.1 H Eos # (Auto) 0.0 Baso # (Auto) 0.1 Immature Gran % 0.5 Nucleated RBC % 0.0 Immature Gran # 0.07 Nucleated RBCs # 0.00 Immature Plt Fraction 0.0 INR 1.0 PT Patient/Control Mix 10.7 Circ Anticoag PTT 29.6 D Sodium 135 L Potassium 4.0 Chloride 100 Carbon Dioxide 28 Anion Gap 11.0 BUN 21 H Creatinine 1.30 GFR Calculation 70 BUN/Creatinine Ratio 16.00 Glucose 256 H Calculated Osmolality 281.1 Calcium 9.7 Total Bilirubin 0.50 AST 30 ALT 32 Alkaline Phosphatase 171 H Troponin I Total Protein 8.1 Albumin 4.0 Globulin 4.1 H Albumin/Globulin Ratio 0.9 L Blood Type Antibody Screen 07/20/17 07/20/17 10:17 12:11 WBC RBC Hgb Hct MCV MCH MCHC RDW Plt Count MPV Neut % (Auto) Lymph % (Auto) Dodge % (Auto) Eos % (Auto) Baso % (Auto) Neut # (Auto) Lymph # (Auto) Dodge # (Auto) Eos # (Auto) Baso # (Auto) Immature Gran % Nucleated RBC % Immature Gran # Nucleated RBCs # Immature Plt Fraction INR PT Patient/Control Mix Circ Anticoag PTT Sodium Potassium Chloride Carbon Dioxide Anion Gap BUN Creatinine GFR Calculation BUN/Creatinine Ratio Glucose Calculated Osmolality Calcium Total Bilirubin AST ALT Alkaline Phosphatase Troponin I 1.010 H Total Protein Albumin Globulin Albumin/Globulin Ratio Blood Type O POSITIVE Antibody Screen Negative - Diagnostic Findings Procedure: Chest x-ray: report reviewed by me - EKG EKG results: interpreted by me EKG shows: sinus rhythm
--- NOTE | 2017-07-20 14:22 | Gastrointestinal Consult Note ---
<Shannon Romano - Last Filed: 07/20/17 14:16> Assessment and Plan (1) Epigastric pain Status: Acute Assessment and plan: 07/10-Several month history of epigastric pain and burning, not associated with meals, with recent surgical repair for perforated duodenal ulcer with peritonitis. Findings of ST elevated and elevated troponin level with cardiac workup in progress. Scheduled for EGD in next several days for surveillance following surgery. Plan and addendum to follow by Dr Villafana Current Visit: No (2) Acute GI bleeding Status: Acute Assessment and plan: 07/10-Reports of melena followed by bright red blood and clots with lower abd cramping. No prior hx of endoscopy in the past. HH stable at 15/45. Continue to monitor serial HH.Transfuse as necessary. Protonix 40mg BID. Plan and addendum to follow by Dr Villafana. Current Visit: Yes History of Present Illness Chief complaint: Rectal bleed History of present illness: Mr. Riojas is a 62 year old male who was admitted to the hospital with onset of rectal bleeding and epigastric pain. Pt states he was in his usual state of health until yesterday when he had a sudden onset of bright red rectal bleeding. Pt states that prior to onset of this, he had some lower abdominal discomfort and cramping and attempted to have a small bowel movement which was dark in nature. He states he took something to make his bowels move and shortly after that he had a regular bowel movement with a moderate amount of bright red blood with clots mixed in his stool. He states that he has never had rectal bleeding in the past. He states that he has had some epigastric pain over the last several months that worsened recently in which he came to the ER for evaluation and at that time was found to have free air with peritonitis and was taken to surgery by Dr Martins for perforated duodenal bulb ulcer. He states that he was recovering well from this until a few days ago when he increased his activity and the pain began to worsen. He denies any nausea or vomiting associated with this. Denies any weight loss, fever or chills. Denies any dysphagia, dyspepsia or worsening GERD. Denies taking any NSAIDs or anticoagulants other than an ASA daily. He states he does drink and smoke on occasion. He has not had endoscopy in the past that he can recall. Cardiology has also consulted with patient and has a current cardiac workup in progress for elevated troponin level and elevated ST on EKG. He does state he has an EGD scheduled soon following his surgery however cannot recall who he is to see for this at this time. Home Medications Medication Instructions Recorded Confirmed Type Aspirin 81 mg PO QAM 05/16/17 07/20/17 History metFORMIN [Glucophage] 500 mg PO DAILY W/BREAKFAST 05/16/17 07/20/17 History Lisinopril [Prinivil] 20 mg PO BID #60 tablet 05/19/17 07/20/17 Rx Pantoprazole Tab [Protonix Tab] 40 mg PO BID #90 tablet 05/19/17 07/20/17 Rx Amlodipine Besylate 10 mg PO QAM 07/20/17 07/20/17 History Atenolol [Tenormin] 25 mg PO QAM 07/20/17 07/20/17 History Allergies Allergy/AdvReac Type Severity Reaction Status Date / Time codeine Allergy Intermediate ITCHING Verified 05/21/17 17:19 Medical,Surgical,& Family Hx - Medical History Cardio: History of: Cardiac Dysrhythmia, Hypertension, Cardiovascular Problems ( irregular heart rate) No history of: CAD, [place] HEENT: History of: Eye Problem (cataract right eye) Endocrine: History of: Diabetes Mellitus (NIDDM) Gastrointestinal: History of: GERD, Gastrointestinal Bleed Musculoskeletal: History of: Back/Neck Problems (back and left shoulder pain) - Surgical History HEENT Surgeries: Surgical HX of: Eye Surgery ("eye surgery in right eye") Orthopedic Surgeries: Surgical HX of;: Orthopedic Surgery ("Back surgery years ago") - Family History Family History: Reports;: Family Diabetes (mother, three sisters), Family Hypertension (sister) - Social History Smoking Status: Current some day smoker Frequency of Alcohol Use: Rarely Type of Drug Use: None 12 point system: reviewed and no additional remarkable complaints except as stated - Constitutional Constitutional: Present: as per HPI - EENT Eyes: Present: as per HPI Ears: Present: as per HPI Nose, mouth and throat: Present: as per HPI - Cardiovascular Cardiovascular: Present: as per HPI - Respiratory Respiratory: Present: as per HPI - Gastrointestinal Gastrointestinal: Present: as per HPI, abdominal pain, hematochezia - Genitourinary Genitourinary: Present: as per HPI - Musculoskeletal Musculoskeletal: Present: as per HPI - Neurological Neurological: Present: as per HPI - Psychiatric Psychiatric: Present: as per HPI - Endocrine Endocrine: Present: as per HPI - Hematologic/Lymphatic Hematologic/Lymphatic: Present: as per HPI Exam - Constitutional Vitals: Period Temp Pulse Resp BP Sys/Frias Pulse Ox Last 24 Hr 97.5 F-97.5 F 86-104 18-20 189-202/110-119 97 General appearance: normal weight, no acute distress - Head Head exam: Present: normal inspection, normocephalic - Eye Eye exam: Present: other (lids and conjunctiva unremarkable). Absent: scleral icterus - ENT ENT exam: Present: normal exam, normal oropharynx - Neck Neck exam: Present: normal inspection - Respiratory Respiratory exam: Present: clear to auscultation bilaterally. Absent: rales, rhonchi, wheezes - Cardiovascular Cardiovascular exam: Present: regular rate and rhythm. Absent: diastolic murmur , JVD, systolic murmur - GI/Abdominal GI/Abdominal exam: Present: normal bowel sounds, soft. Absent: ascites, distended, mass, organomegaly, tenderness - Extremities Exam Extremities exam: Present: normal inspection, full ROM - Back Exam Back exam: Present: normal inspection - Neurological Exam Neurological exam: Present: alert, oriented X3 - Psychiatric Psychiatric exam: Present: normal affect, normal mood - Skin Skin exam: Present: normal color, warm, dry Results - Labs CBC & BMP: 07/20/17 10:17 07/20/17 10:17 Lab Results: I have reviewed the past 24 hour labs <Dane Villafana - Last Filed: 07/20/17 16:48> History of Present Illness Chief complaint: 3030 History of present illness: Mr. Riojas is a 62 year old male Exam - Constitutional Vitals: Period Temp Pulse Resp BP Sys/Frias Pulse Ox Last 24 Hr 97.5 F-98.1 F 56-104 18-20 161-202/94-119 95-100 Results - Labs CBC & BMP: 07/20/17 15:45 07/20/17 10:17
[2017-07-20] MEDS: INSULIN LISPRO 100 UNIT/ML SUBCUT SCH ×2 (16:01→21:06)
[2017-07-20 16:08] LABS: Hematocrit 45.4 VOL% (42.0-52.0); Hemoglobin 15.6 GM/DL (14.0-18.0)
--- NOTE | 2017-07-20 16:13 | EKG Report ---
Stationary ECG Study [facility] Test Date: 07/20/2017 4:10:57 PM Pat Name: LOLIS BLANTON Department: Room: 287 Gender: M Clinical Support Nurse: : 1955 Requested by: Ashly Tate Order Number: [id number] Reading MD: INES URIBE Intervals [place] Rate: 66 P: 52 VA: 168 QRS: 16 QRSD: 99 T: 257 QT: 422 QTc: 435 Interpretive Statements SINUS RHYTHM LEFT VENTRICULAR HYPERTROPHY AND ST-T CHANGE Electronically Signed On 07-21-17 16:39:26 CDT by INES URIBE [email or web address]
[2017-07-20] MEDS: CARVEDILOL 12.5 MG TABLET PO SCH ×2 (16:26→21:07)
[2017-07-20 17:18] LABS: Apearance,Urine CLEAR (Clear); Bilirubin,Urine Negative (Negative); Blood, Urine Trace mg/dL (Negative); Glucose,Urine (UA) 50 mg/dL (Negative); Ketones,Urine Negative (Negative); Mucus,Urine Occasional /LPF (Occasional); Nitrite,Urine Negative (Negative); Protein,Urine 100 MG/DL; RBC,Urine 1 /HPF (0-4); Urine Color Yellow (Yellow); Urine Specific Gravity 1.015 (1.001-1.035); Urine Urobilinogen 0.2 EU/DL (0.2-1.0); WBC,Urine 1 /HPF (0-6)
[2017-07-20 17:26] LABS: Barbiturates Screen,Urine Negative (Negative); Benzodiazepines Screen,Urine Negative (Negative); Cannabinoid Screen,Urine Positive (Negative); Opiate Screen,Urine Negative (Negative); Phencyclidine Screen,Urine Negative (Negative)
--- NOTE | 2017-07-20 18:10 | ECHO Report ---
Ibis Riojas Exam Date: 07/20/2017 13:48 Referring Physician: Technologist: Jerilyn Pickard Age: 62 Ht (in): 63 Wt (lb): 166 Gender: M Exam Location: [facility] Echo Indications: Essential (primary) hypertension, Abnormal electrocardiogram [ECG] [EKG], GI bleed, Alcohol use, Diabetes BP: 176 / 94 HR: 60 Rhythm: Sinus Technical Quality: IMPRESSIONS Left ventricular ejection fraction is estimated at 50%. Moderate to severe concentric left ventricular hypertrophy with mild diastolic dysfunction Mild bilateral atrial enlargement. Mild mitral valve regurgitation. Trace to mild tricuspid valve regurgitation. MEASUREMENTS (Male / Female) Normal Values 2D ECHO LV Diastolic Diameter PLAX 4.8 cm 4.2 - 5.9 / 3.9 - 5.3 cm LV Systolic Diameter PLAX 4.4 cm LV Fractional Shortening PLAX 9.1 % IVS Diastolic Thickness 2.0 cm 0.6 - 1.0 / 0.6 - 0.9 cm LVPW Diastolic Thickness 1.9 cm 0.6 - 1.0 / 0.6 - 0.9 cm Aortic Root Diameter 2.6 cm LA Systolic Diameter LX 3.6 cm 3.0 - 4.0 / 2.7 - 3.8 cm FINDINGS Left Ventricle Normal left ventricular cavity size. Moderate to severe concentric left ventricular hypertrophy with mild diastolic dysfunction. Left ventricular ejection fraction is estimated at 50 %. Right Ventricle Normal ventricular size. Right Atrium The right atrium is mildly enlarged. Left Atrium The left atrium is mildly enlarged. Mitral Valve Morphologically normal mitral valve. Mild mitral valve regurgitation. Aortic Valve Morphologically normal aortic valve without significant sclerosis or stenosis. There is no aortic regurgitation. Tricuspid Valve Morphologically normal tricuspid valve. Trace to mild tricuspid valve regurgitation. Pulmonic Valve Morphologically normal pulmonic valve without significant stenosis. There is no pulmonic regurgitation. Pericardium Normal pericardium without effusion. Aorta Normal ascending aorta dimension. Porter Hale (Electronically Signed) Final Date: 20 July 2017 18:09
[2017-07-20] MEDS ORDERED: PANTOPRAZOLE 40 MG TABLET PO SCH (21:00)
[2017-07-20] MEDS: LISINOPRIL 20 MG TABLET PO SCH (21:07)
[2017-07-20] MEDS: PANTOPRAZOLE 40 MG TABLET PO SCH (21:07)
[2017-07-20 22:47] LABS: Hematocrit 41.5 VOL% (42.0-52.0); Hemoglobin 14.4 GM/DL (14.0-18.0)
[2017-07-21 05:38] LABS: Basophils # 0.1 10*3/uL (0.0-0.2); Basophils % 0.5 % (0.0-0.8); Eosinophils # 0.1 10*3/uL (0.0-0.87); Eosinophils % 1.2 % (0.00-10.9); Hemoglobin 14.7 GM/DL (14.0-18.0); Immature Granulocytes % 0.4 %; Immature Granulocytes Absolute 0.04 #; Lymphocytes # 2.2 10*3/uL (1.4-4.0); Lymphocytes % 20.1 % (21.2-54.2); Mean Corpuscular HGB Conc 33.4 GM/DL (32-36); Mean Corpuscular Hemoglobin 28 PG (27-34); Mean Corpuscular Volume 84.3 FL (87-102); Mean Platelet Volume 12.2 FL (9.6-12.0); Monocytes # 1.1 10*3/uL (0.11-0.8); Neutrophils # 7.3 10*3/uL (1.4-7.4); Neutrophils % 67.8 % (38.7-73.9); Platelet Count 208 T/CUMM (130-400); Red Blood Count 5.22 MC/CUMM (3.8-5.5); Red Cell Distribution Width 13.2 % (9.3-17.3); White Blood Count 10.8 T/CUMM (4-12)
[2017-07-21 06:15] LABS: Albumin 3.4 G/DL (3.4-5.0); Calcium 9.3 MG/DL (8.5-10.1); Osmolality,Calculated 275.8 MOS/KG (273-304); Risk Ratio 2.9; Total Protein 6.8 G/DL (6.4-8.3)
[2017-07-21 06:31] LABS: Troponin I Only 0.963 NG/ML (0.00-0.045)
[2017-07-21] MEDS: INSULIN LISPRO 100 UNIT/ML SUBCUT SCH ×4 (08:38→20:58)
[2017-07-21] MEDS ORDERED: ATENOLOL 25 MG TABLET PO SCH (09:00)
[2017-07-21] MEDS: CARVEDILOL 12.5 MG TABLET PO SCH (09:23)
[2017-07-21] MEDS: LISINOPRIL 20 MG TABLET PO SCH (09:23)
[2017-07-21] MEDS: PANTOPRAZOLE 40 MG TABLET PO SCH ×2 (09:23→21:01)
[2017-07-21] MEDS: amLODIPine 10 MG TABLET PO SCH (09:23)
[2017-07-21] MEDS ORDERED: PROPOFOL 200 MG/20 ML VIAL IV ONE (10:47)
[2017-07-21] MEDS ORDERED: LIDOCAINE 2% 5 ML VIAL ONE (10:47)
--- NOTE | 2017-07-21 10:51 | History and Physical Update ---
History and Physical Update - Physical Exam Mental Status: alert and oriented Heart: regular rate and rhythm Lung: clear to auscultation Abdomen: within normal limits Vitals: within normal limits
--- NOTE | 2017-07-21 11:00 | Operative Note ---
Date of procedure: 07/21/17 Pre-op diagnosis: Epigastric pain with GI bleed prior history of peptic ulcer disease Procedure: EGD with biopsy 62-year-old gentleman with recent peptic ulcer disease requiring surgical oversewing now for repeat EGD following readmission for complaints of epigastric pain and GI bleeding. Informed consent was obtained the patient He was sedated with MAC anesthesia per anesthesia protocol. Patient was placed in left lateral decubitus position the Olympus flexible video upper endoscope was inserted into the oral cavity under direct vision the esophagus was intubated. Findings: Esophagus-normal proximal mid esophageal mucosa distal esophagus with small hiatal hernia. Mild esophagitis was seen. No Draper's or varices were identified. Stomach normal insufflation. Normal mucosa to direct retroflexed views of the body fundus and cardia the stomach. In the antrum the stomach there is diffuse erosive gastritis biopsies were taken. No ulceration was seen. Pylorus-normal Duodenum-residual ulceration seen at suspected site of previous oversewing no visible vessels are noted remaining duodenum is normal to the third portion. The procedure terminated placed our procedure well his discharge recovery in good condition. Postop diagnosis: 1. Persistent duodenal ulcer-suspect clinical noncompliance will re-enforced need to take Protonix twice daily for healing. Importance of avoiding nonsteroidals also be stressed. 2. Erosive gastritis-as above 3. Check stool for H. pylori. 4. We will need to consider colonoscopy as an outpatient after his upper tract symptoms have resolved. Anesthesia: MAC Surgeon / Physician: Dane Villafana Estimated blood loss: none Specimens: other (Erosive gastritis) Condition: stable Disposition: post procedure unit Results - Labs CBC & BMP: 07/21/17 04:52 07/21/17 04:52 Discharge Plan - Discharge Medications No Action metFORMIN [Glucophage] 500 mg PO DAILY W/BREAKFAST Aspirin 81 mg PO QAM Pantoprazole Tab [Protonix Tab] 40 mg PO BID #90 tablet Amlodipine Besylate 10 mg PO QAM Lisinopril [Prinivil] 20 mg PO BID #60 tablet Atenolol [Tenormin] 25 mg PO QAM - Follow Up or Referral - Forms/Instructions
--- NOTE | 2017-07-21 11:03 | Anesthesia Post-Op ---
Anesthesia Post OP - Post Ansesthetic Evaluation Patient seen in post op: Yes Resp: within normal limits CV: within normal limits Mental: within normal limits Temp: within normal limits [id number]: within normal limits Nausea and Vomiting: within normal limits Pain: within normal limits
--- NOTE | 2017-07-21 13:41 | Cardiology Progress Note ---
Assessment and Plan - Time spent with patient Time spent with patient: Greater than 30 minutes Time spent discussing smoking cessation with patient: 3 to 10 minutes (1) Alcohol use Status: Chronic Assessment and plan: SEE PLAN OF CARE LISTED BELOW Current Visit: Yes (2) Abnormal EKG Status: Chronic Assessment and plan: SEE PLAN OF CARE LISTED BELOW Current Visit: Yes (3) Acute GI bleeding Status: Acute Assessment and plan: SEE PLAN OF CARE LISTED BELOW Current Visit: Yes (4) Diabetes mellitus Status: Chronic Assessment and plan: SEE PLAN OF CARE LISTED BELOW Current Visit: Yes (5) Essential hypertension Status: Chronic Assessment and plan: SEE PLAN OF CARE LISTED BELOW Current Visit: Yes (6) Epigastric pain Status: Acute Assessment and plan: SEE PLAN OF CARE LISTED BELOW Current Visit: No (7) Hypertension Status: Chronic Assessment and plan: SEE PLAN OF CARE LISTED BELOW Current Visit: No (8) Marijuana use Status: Chronic Assessment and plan: SEE PLAN OF CARE LISTED BELOW Current Visit: No (9) Elevated troponin Status: Chronic Assessment and plan: SEE PLAN OF CARE LISTED BELOW Current Visit: No Cardiology - PN: Subj Interval history: 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 MOTLEY has seen in the past. Previously seen a encyclopedia research worker in [place], [place], name unknown). SUMMARY: Mr. Riojas, 61BM, is followed by encyclopedia research worker in [place], [place] for "abnormal heart rate." Risk factors include: hypertension, diabetes, marijuana use, sedentary lifestyle. History of perforated gastric ulcer April 2017 requiring multiple transfusions. History of anemia resulting in near syncope with fall and laceration of his liver May 2017 (also required transfusions during that hospital stay). Admitted July 20, 2017 for bright red bleeding from the rectum which began on Wednesday. EKG was obtained concerning for STEMI. However, this is a chronic finding and not acute GA. Troponins chronically elevated and remain flat at 0.9. Very active and denies chest pain, heaviness, tightness or shortness of breath. JULY 21, 2017: He continued to have mild right rectal bleeding during the night. He is currently scheduled for EGD today. Slept relatively well. Anxious to undergo procedure today. He is currently on atenolol and carvedilol. Will discontinue the Coreg and increase his Atenolol which is his home medication. Blood pressure is elevated this morning however he has been n.p.o. including meds for upcoming EGD. At this time, he has no active cardiac conditions and we will sign off. Please feel free to reconsult as needed. IMPRESSION/PLAN: 1. ABNORMAL EKG - patient's EKG is abnormal however this is basically improved from prior EKG. This is not an acute GA. 2. ELEVATED TROPONIN - patient's troponin is chronically elevated. Remains flat. Again, it is felt that this is not an acute GA. He is having no chest pain, heaviness tightness or shortness of breath. 3. HYPERTENSION - usually well controlled. Will adjust medications accordingly during hospital stay 4. DYSLIPIDEMIA -LDL 73 continue lipid-lowering agent as able. 5. GI BLEED - history of severe GI bleed requiring multiple transfusions. At this point, would not dose with Lovenox or Aspirin as he is having no chest pain or symptoms concerning for angina. 6. TOBACCO USE - greater than 5 minutes was spent today discussing the merits of tobacco cessation 7. MARIJUANA USE - greater than 5 minutes was spent today discussing the merits of marijuana since Exam (Progress Note) - Constitutional Vitals: Period Temp Pulse Resp BP Sys/Frias Pulse Ox Last 24 Hr 96.5 F-98.1 F 53-75 16-28 130-190/71-103 92-100 Exam: General: [Appears well with no apparent distress.] [Pleasant and cooperative. ] [Appears comfortable.] HEENT: [PERRL, normocephalic, atraumatic. Mucous membranes moist. No jaundice noted. Conjunctiva moist and clear, sclerae anicteric] Neck: No JVD/HJR, no thyromegaly or lymphadenopathy noted. No carotid bruit appreciated Cardiac: [Regular rate and rhythm.] [No murmur rub or gallop.] . Lungs: [Clear to auscultation without accessory muscle use to assist the respiratory pattern.] Not requiring oxygen Abdomen: Soft, bowel sounds normoactive. Nontender and nondistended. No abdominal bruit or thrill noted. No masses noted. Musculoskeletal: No fluid collection. Decreased range of motion is noted. Extremities: No clubbing, cyanosis noted. [ No edema noted.] Upper extremity pulses 2+. Lower extremity pulses 2+. Capillary refill less than 3 seconds. Skin: No unusual lesions or rashes. No skin breakdown appreciated. Neuro: Awake, alert and oriented 3. Moves all extremities well without hemiparesis or paralysis. No essential tremor is appreciated. Result/EKG - Labs CBC & BMP: 07/21/17 04:52 07/21/17 04:52 Lab Results: I have reviewed the past 24 hour labs Labs: Laboratory Results - last 24 hr 07/20/17 07/20/17 07/20/17 15:45 15:45 15:45 WBC RBC Hgb 15.6 Hct 45.4 MCV MCH MCHC RDW Plt Count MPV Neut % (Auto) Lymph % (Auto) Sanders % (Auto) Eos % (Auto) Baso % (Auto) Neut # (Auto) Lymph # (Auto) Sanders # (Auto) Eos # (Auto) Baso # (Auto) Immature Gran % Nucleated RBC % Immature Gran # Nucleated RBCs # Immature Plt Fraction Sodium Potassium Chloride Carbon Dioxide Anion Gap BUN Creatinine GFR Calculation BUN/Creatinine Ratio Glucose POC Glucose Hemoglobin A1c Calculated Osmolality Calcium Total Bilirubin AST ALT Alkaline Phosphatase Total Creatine Kinase CK-MB (CK-2) Troponin I 0.972 H Total Protein Albumin Globulin Albumin/Globulin Ratio Triglycerides Cholesterol LDL Cholesterol VLDL Cholesterol HDL Cholesterol Heart Disease Risk Ratio Urine Color Urine Appearance Urine pH Ur Specific [place] Urine Protein Urine Glucose (UA) Urine Ketones Urine Blood Urine Nitrate Urine Bilirubin Urine Urobilinogen Urine Leukocytes Urine RBC Urine WBC Urine Mucus Ur Culture Indicated? Urine Opiates Screen Ur Barbiturates Screen Ur Phencyclidine Scrn U Amphetamine/Methamph U Benzodiazepines Scrn U Cocaine Metab Screen U Cannabinoids Screen Serum Alcohol < 15 L 07/20/17 07/20/17 07/20/17 15:57 17:08 17:08 WBC RBC Hgb Hct MCV MCH MCHC RDW Plt Count MPV Neut % (Auto) Lymph % (Auto) Sanders % (Auto) Eos % (Auto) Baso % (Auto) Neut # (Auto) Lymph # (Auto) Sanders # (Auto) Eos # (Auto) Baso # (Auto) Immature Gran % Nucleated RBC % Immature Gran # Nucleated RBCs # Immature Plt Fraction Sodium Potassium Chloride Carbon Dioxide Anion Gap BUN Creatinine GFR Calculation BUN/Creatinine Ratio Glucose POC Glucose 140 H Hemoglobin A1c Calculated Osmolality Calcium Total Bilirubin AST ALT Alkaline Phosphatase Total Creatine Kinase CK-MB (CK-2) Troponin I Total Protein Albumin Globulin Albumin/Globulin Ratio Triglycerides Cholesterol LDL Cholesterol VLDL Cholesterol HDL Cholesterol Heart Disease Risk Ratio Urine Color Yellow Urine Appearance Clear Urine pH 6.0 Ur Specific [place] 1.015 Urine Protein 100 Urine Glucose (UA) 50 Urine Ketones Negative Urine Blood Trace Urine Nitrate Negative Urine Bilirubin Negative Urine Urobilinogen 0.2 Urine Leukocytes Negative Urine RBC 1 Urine WBC 1 Urine Mucus Occasional Ur Culture Indicated? Not indicated Urine Opiates Screen Negative Ur Barbiturates Screen Negative Ur Phencyclidine Scrn Negative U Amphetamine/Methamph Negative U Benzodiazepines Scrn Negative U Cocaine Metab Screen Negative U Cannabinoids Screen Positive H Serum Alcohol 07/20/17 07/20/17 07/21/17 19:20 22:37 04:52 WBC 10.8 RBC 5.22 Hgb 14.4 14.7 Hct 41.5 L 44.0 MCV 84.3 L MCH 28 MCHC 33.4 RDW 13.2 Plt Count 208 MPV 12.2 H Neut % (Auto) 67.8 Lymph % (Auto) 20.1 L Sanders % (Auto) 10.0 Eos % (Auto) 1.2 Baso % (Auto) 0.5 Neut # (Auto) 7.3 Lymph # (Auto) 2.2 Sanders # (Auto) 1.1 H Eos # (Auto) 0.1 Baso # (Auto) 0.1 Immature Gran % 0.4 Nucleated RBC % 0.0 Immature Gran # 0.04 Nucleated RBCs # 0.00 Immature Plt Fraction 0.0 Sodium Potassium Chloride Carbon Dioxide Anion Gap BUN Creatinine GFR Calculation BUN/Creatinine Ratio Glucose POC Glucose 211 H Hemoglobin A1c Calculated Osmolality Calcium Total Bilirubin AST ALT Alkaline Phosphatase Total Creatine Kinase CK-MB (CK-2) Troponin I Total Protein Albumin Globulin Albumin/Globulin Ratio Triglycerides Cholesterol LDL Cholesterol VLDL Cholesterol HDL Cholesterol Heart Disease Risk Ratio Urine Color Urine Appearance Urine pH Ur Specific [place] Urine Protein Urine Glucose (UA) Urine Ketones Urine Blood Urine Nitrate Urine Bilirubin Urine Urobilinogen Urine Leukocytes Urine RBC Urine WBC Urine Mucus Ur Culture Indicated? Urine Opiates Screen Ur Barbiturates Screen Ur Phencyclidine Scrn U Amphetamine/Methamph U Benzodiazepines Scrn U Cocaine Metab Screen U Cannabinoids Screen Serum Alcohol 07/21/17 07/21/17 07/21/17 04:52 04:52 04:52 WBC RBC Hgb Hct MCV MCH MCHC RDW Plt Count MPV Neut % (Auto) Lymph % (Auto) Sanders % (Auto) Eos % (Auto) Baso % (Auto) Neut # (Auto) Lymph # (Auto) Sanders # (Auto) Eos # (Auto) Baso # (Auto) Immature Gran % Nucleated RBC % Immature Gran # Nucleated RBCs # Immature Plt Fraction Sodium 137 Potassium 4.0 Chloride 103 Carbon Dioxide 27 Anion Gap 11.0 BUN 17 Creatinine 1.10 GFR Calculation 84 BUN/Creatinine Ratio 15.00 Glucose 118 H POC Glucose Hemoglobin A1c 7.4 H Calculated Osmolality 275.8 Calcium 9.3 Total Bilirubin 1.00 AST 30 ALT 31 Alkaline Phosphatase 145 H Total Creatine Kinase 142 CK-MB (CK-2) 2.2 Troponin I 0.963 H Total Protein 6.8 Albumin 3.4 Globulin 3.4 Albumin/Globulin Ratio 1.0 L Triglycerides 70 Cholesterol 142 LDL Cholesterol 73.0 VLDL Cholesterol 14.0 HDL Cholesterol 49 Heart Disease Risk Ratio 2.90 Urine Color Urine Appearance Urine pH Ur Specific [place] Urine Protein Urine Glucose (UA) Urine Ketones Urine Blood Urine Nitrate Urine Bilirubin Urine Urobilinogen Urine Leukocytes Urine RBC Urine WBC Urine Mucus Ur Culture Indicated? Urine Opiates Screen Ur Barbiturates Screen Ur Phencyclidine Scrn U Amphetamine/Methamph U Benzodiazepines Scrn U Cocaine Metab Screen U Cannabinoids Screen Serum Alcohol 07/21/17 07/21/17 07:56 12:57 WBC RBC Hgb Hct MCV MCH MCHC RDW Plt Count MPV Neut % (Auto) Lymph % (Auto) Sanders % (Auto) Eos % (Auto) Baso % (Auto) Neut # (Auto) Lymph # (Auto) Sanders # (Auto) Eos # (Auto) Baso # (Auto) Immature Gran % Nucleated RBC % Immature Gran # Nucleated RBCs # Immature Plt Fraction Sodium Potassium Chloride Carbon Dioxide Anion Gap BUN Creatinine GFR Calculation BUN/Creatinine Ratio Glucose POC Glucose 140 H 139 H Hemoglobin A1c Calculated Osmolality Calcium Total Bilirubin AST ALT Alkaline Phosphatase Total Creatine Kinase CK-MB (CK-2) Troponin I Total Protein Albumin Globulin Albumin/Globulin Ratio Triglycerides Cholesterol LDL Cholesterol VLDL Cholesterol HDL Cholesterol Heart Disease Risk Ratio Urine Color Urine Appearance Urine pH Ur Specific [place] Urine Protein Urine Glucose (UA) Urine Ketones Urine Blood Urine Nitrate Urine Bilirubin Urine Urobilinogen Urine Leukocytes Urine RBC Urine WBC Urine Mucus Ur Culture Indicated? Urine Opiates Screen Ur Barbiturates Screen Ur Phencyclidine Scrn U Amphetamine/Methamph U Benzodiazepines Scrn U Cocaine Metab Screen U Cannabinoids Screen Serum Alcohol - Diagnostic Findings Procedure: Chest x-ray: report reviewed by me - EKG EKG results: interpreted by me EKG shows: sinus rhythm
--- NOTE | 2017-07-21 16:07 | Hospitalist Progress Note ---
Assessment and Plan (1) Acute GI bleeding Status: Acute Assessment and plan: Resolved, status post EGD shows duodenal ulcer, erosive gastritis, consider colonoscopy as an outpatient. Current Visit: Yes (2) Elevated troponin Status: Chronic Assessment and plan: Dr. Hale does not feel patient had an WI. His troponins are trending down. No aspirin needed at this time Current Visit: No (3) Essential hypertension Status: Chronic Assessment and plan: Continue atenolol Current Visit: Yes (4) Diabetes mellitus Status: Chronic Assessment and plan: hemoglobin A1c 7.4, hold metformin Current Visit: Yes (5) Alcohol use Status: Chronic Assessment and plan: Start thiamine and folate Current Visit: Yes Hospitalist: Subjective Interval history: Patient feeling a little bit better today. He was awaiting his EGD when I saw him. I reviewed his EGD noted he did have a persistent duodenal ulcer. Exam - Constitutional Vitals: Period Temp Pulse Resp BP Sys/Frias Pulse Ox Last 24 Hr 96.5 F-98.1 F 53-64 16-28 130-190/71-103 92-100 Exam: Heart Rate-[RRR] Lungs-[CTAB] GI-[+bs tender] Ext-[no edema] Neuro [Motor 5/5], [alert and oriented times 3] psych [normal mood and affect] General [no acute distress] Results - Labs CBC & BMP: 07/21/17 14:29 07/21/17 04:52 Lab Results: I have reviewed the past 24 hour labs - Diagnostic Findings Procedure: Chest x-ray: report reviewed by me
[2017-07-21] MEDS ORDERED: hydrALAZINE 20 MG/1 ML VIAL IV PRN (16:45)
[2017-07-21] MEDS: LOSARTAN 50 MG TABLET PO SCH (17:19)
[2017-07-21] MEDS: THIAMINE 100 MG TABLET PO SCH (17:19)
[2017-07-21] MEDS: FOLIC ACID 1 MG TABLET PO SCH (17:19)
[2017-07-22 06:15] LABS: Basophils # 0.1 10*3/uL (0.0-0.2); Basophils % 0.7 % (0.0-0.8); Eosinophils # 0.2 10*3/uL (0.0-0.87); Eosinophils % 1.7 % (0.00-10.9); Hematocrit 45.4 VOL% (42.0-52.0); Hemoglobin 15.2 GM/DL (14.0-18.0); Immature Granulocytes % 0.5 %; Immature Granulocytes Absolute 0.05 #; Lymphocytes # 2.5 10*3/uL (1.4-4.0); Lymphocytes % 26.8 % (21.2-54.2); Mean Corpuscular HGB Conc 33.5 GM/DL (32-36); Mean Corpuscular Hemoglobin 29 PG (27-34); Mean Corpuscular Volume 85.2 FL (87-102); Monocytes # 1.1 10*3/uL (0.11-0.8); Monocytes % 11.7 % (1.7-12.7); Neutrophils # 5.4 10*3/uL (1.4-7.4); Neutrophils % 58.6 % (38.7-73.9); Platelet Count 231 T/CUMM (130-400); Red Blood Count 5.33 MC/CUMM (3.8-5.5); Red Cell Distribution Width 13.3 % (9.3-17.3); White Blood Count 9.2 T/CUMM (4-12)
[2017-07-22] MEDS: THIAMINE 100 MG TABLET PO SCH (09:21)
[2017-07-22] MEDS: amLODIPine 10 MG TABLET PO SCH (09:21)
[2017-07-22] MEDS: LOSARTAN 50 MG TABLET PO SCH (09:21)
[2017-07-22] MEDS: PANTOPRAZOLE 40 MG TABLET PO SCH (09:22)
[2017-07-22] MEDS: INSULIN LISPRO 100 UNIT/ML SUBCUT SCH ×2 (09:22→12:50)
[2017-07-22] MEDS: FOLIC ACID 1 MG TABLET PO SCH (09:22)
--- NOTE | 2017-07-22 11:32 | Discharge Summary ---
Hospital Course - Hospital Course Hospital Course: Mr. Riojas is a 62 year old black male with a history of GERD, hypertension, diabetes, irregular heart rate, chronic back problems that presented to the ED today for further evaluation of melena and coffe ground emesis. Hemoglobin on admission is 15.8. Patient was on aspirin. Patient is also known to be a drinker. Patient recently had a surgical repair of a perforated duodenal ulcer with peritonitis. Patient was sent home on Protonix but was noncompliant with his medications. Dr. José Villafana was consulted. Patient had an EGD on July 21, 2017 which showed persistent duodenal ulcer with erosive gastritis. Biopsies to check for H. pylori were done and are pending at time of dictation. Patient will be discharged home on twice a day Protonix. Patient was also noted to have elevated troponins and EKG changes. Dr. Hale from cardiology has seen him and does not feel that he had any cardiac ischemia. He felt the troponins were result of stress from the GI bleed. Patient will be discharged home today with an outpatient stress test scheduled for August 05 at 815 am. Patient does have hard to control blood pressure. He was not atenolol but this was on hold due to bradycardia. Patient may have a component of sleep apnea and that should be evaluated a later date. Patient's blood pressure was difficult to control but improved with high-dose hydralazine and Norvasc. Patient will be discharged home today with follow-up with his primary care doctor for his blood pressure, Dr. Godinez from cardiology and Dr. Villafana from GI. Patient is to refrain from taking aspirin for at least the next 2 weeks. I will start him on a low dose of Lipitor due to his cardiac risk factors. - Time spent with patient Time with patient DS: Less than 30 minutes (25 min) Diagnosis - Discharge Diagnosis (1) Acute GI bleeding Status: Acute (2) Elevated troponin Status: Chronic (3) Essential hypertension Status: Chronic (4) Diabetes mellitus Status: Chronic (5) Alcohol use Status: Chronic Discharge Plan - Discharge Data Disposition: Disch To Home/Self Care Condition at Discharge: Stable Discharge Diet: diabetic diet Activity: resume usual activities as tolerated Hygiene: no restrictions - Discharge Medications New hydrALAZINE TAB [Apresoline Tab] 100 mg PO TID #90 tablet Losartan [Cozaar] 100 mg PO DAILY #60 tablet Thiamine Tab [Vitamin B1 Tab] 100 mg PO DAILY tablet Atorvastatin [Lipitor] 40 mg PO BEDTIME #30 tablet Folic Acid Tab 1 mg PO DAILY tablet Continue Amlodipine Besylate 10 mg PO QAM #30 tablet Pantoprazole Tab [Protonix Tab] 40 mg PO BID #60 tablet Changed metFORMIN [Glucophage] 500 mg PO BID #60 tablet Discontinued Aspirin 81 mg PO QAM Lisinopril [Prinivil] 20 mg PO BID #60 tablet Atenolol [Tenormin] 25 mg PO QAM - Follow Up or Referral Follow Up: dr che [Other] - 3 Days (blood pressure) Dane Villafana MD [Physician] - 2 Weeks Aisha Godinez MD [Physician] - 08/05/17 8:15 am - Forms/Instructions Additional Discharge Instructions: no alcohol or caffeine for two weeks. Outpatient stress test with Dr. Hale for aug 05 at 0815 Exam - Constitutional Vitals: Period Temp Pulse Resp BP Sys/Frias Pulse Ox Last 24 Hr 96.5 F-98.4 F 53-72 18-20 122-201/64-97 94-100 General appearance: normal weight, no acute distress - Respiratory Respiratory exam: Present: clear to auscultation bilaterally. Absent: rhonchi, wheezes - Cardiovascular Cardiovascular exam: Present: bradycardia. Absent: systolic murmur - GI/Abdominal GI/Abdominal exam: Present: normal bowel sounds, tenderness, soft - Neurological Exam Neurological exam: Present: alert, oriented X3 - Psychiatric Psychiatric exam: Present: normal affect, normal mood Discharge Results Procedures and tests throughout hospitalization: Pending Orders 07/20/17 15:45 Blood Culture Stat Labs on day of discharge: Labs from last 24 hours 07/22/17 07/22/17 07/21/17 08:02 04:42 20:21 WBC 9.2 RBC 5.33 Hgb 15.2 Hct 45.4 MCV 85.2 L MCH 29 MCHC 33.5 RDW 13.3 Plt Count 231 MPV 13.0 H Neut % (Auto) 58.6 Lymph % (Auto) 26.8 [place] % (Auto) 11.7 Eos % (Auto) 1.7 Baso % (Auto) 0.7 Neut # (Auto) 5.4 Lymph # (Auto) 2.5 [place] # (Auto) 1.1 H Eos # (Auto) 0.2 Baso # (Auto) 0.1 Immature Gran % 0.5 Nucleated RBC % 0.0 Immature Gran # 0.05 Nucleated RBCs # 0.00 Immature Plt Fraction 0.0 POC Glucose 152 H 118 H 07/21/17 07/21/17 07/21/17 16:01 14:29 12:57 WBC RBC Hgb 13.8 L Hct MCV MCH MCHC RDW Plt Count MPV Neut % (Auto) Lymph % (Auto) [place] % (Auto) Eos % (Auto) Baso % (Auto) Neut # (Auto) Lymph # (Auto) [place] # (Auto) Eos # (Auto) Baso # (Auto) Immature Gran % Nucleated RBC % Immature Gran # Nucleated RBCs # Immature Plt Fraction POC Glucose 171 H 139 H Preliminary micro results at discharge 07/20/17 15:45 Blood Culture - Preliminary Blood No growth at 1 day 07/20/17 15:45 Blood Culture - Preliminary Blood No growth at 1 day DS: Provider Date of admission: 07/20/17 11:48 Primary care physician: MATEO Grigsby Attending physician on admission: Therese Kirby MD Consults: 07/20/17 12:22 Consult to Physician [CONS] Routine Comment: abnormal ekg/elevated troponin Consulting Provider: Porter Hale When should Consulting Provider be notified: Now Person Notified: ARABELLA MCQUEEN Date Notified: 07/20/17 07/20/17 14:03 Consult to Physician [CONS] Routine Comment: bright red blood per rectum Consulting Provider: Dane Villafana Consult to Specialist Group: Gastroenterology Person Notified: Karen Date Notified: 07/20/17 Time Notified: 15:25 Discharging clinician: Therese Kirby MD
--- NOTE | 2017-07-22 11:34 | Gastrointestinal Progress Note ---
<Shannon Romano - Last Filed: 07/22/17 11:32> Assessment and Plan (1) Epigastric pain Status: Acute Assessment and plan: 07/22-EGD findings noted as below. No overt bleeding. H&H stable. Okay to discharge on Protonix from GI standpoint and patient can contact us back to schedule a colonoscopy in the near future. Plan an addendum to follow Dr. Villafana. 07/20-Several month history of epigastric pain and burning, not associated with meals, with recent surgical repair for perforated duodenal ulcer with peritonitis. Findings of ST elevated and elevated troponin level with cardiac workup in progress. Scheduled for EGD in next several days for surveillance following surgery. Plan and addendum to follow by Dr Villafana (2) Acute GI bleeding Status: Acute Assessment and plan: 07/10-Reports of melena followed by bright red blood and clots with lower abd cramping. No prior hx of endoscopy in the past. HH stable at 15/45. Continue to monitor serial HH.Transfuse as necessary. Protonix 40mg BID. Plan and addendum to follow by Dr Villafana. Gastroenterology - PN: Subj Interval history: CC: Epigastric pain, GI bleed Patient is seen, awake and alert lying in bed. States he had a restful night. Denies any abdominal pain, nausea or vomiting. EGD findings with persistent duodenal ulcer and erosive gastritis. Stools for H. pylori are pending at this time. Discussed with patient the need for consideration of colonoscopy as an outpatient, however patient states that he wishes to call us back to schedule this appointment. H&H remained stable at 15/45. Abdomen is soft, nontender. Okay to discharge from GI standpoint. ROS: Denies shortness breath or chest pain Exam (Progress Note) - Constitutional Vitals: Period Temp Pulse Resp BP Sys/Frias Pulse Ox Last 24 Hr 96.5 F-98.4 F 53-72 18-20 122-201/64-97 94-100 General appearance: normal weight, no acute distress - Head Head exam: Present: normal inspection, normocephalic - Eye Eye exam: Present: other (Lids and conjunctive are unremarkable). Absent: scleral icterus - ENT ENT exam: Present: normal exam, normal oropharynx - Neck Neck exam: Present: normal inspection - Respiratory Respiratory exam: Present: clear to auscultation bilaterally. Absent: rales, rhonchi, wheezes - Cardiovascular Cardiovascular exam: Present: regular rate and rhythm. Absent: diastolic murmur , JVD, systolic murmur - GI/Abdominal GI/Abdominal exam: Present: normal bowel sounds, soft. Absent: ascites, distended, mass, organomegaly, tenderness - Extremities Exam Extremities exam: Present: normal inspection, full ROM - Back Exam Back exam: Present: normal inspection - Neurological Exam Neurological exam: Present: alert, oriented X3 - Psychiatric Psychiatric exam: Present: normal affect, normal mood - Skin Skin exam: Present: normal color, warm, dry Results - Labs CBC & BMP: 07/22/17 04:42 07/21/17 04:52 Lab Results: I have reviewed the past 24 hour labs Specialty Discharge - Follow Up or Referrals Follow up with: dr che [Other] - 3 Days (blood pressure) Dane Villafana MD [Physician] - 2 Weeks (CALL DR. VILLAFANA'S OFFICE WHEN READY TO DO YOUR COLONOSCOPE) Aisha Godinez MD [Physician] - 08/05/17 8:15 am <Dane Villafana - Last Filed: 07/22/17 18:12> Exam (Progress Note) - Constitutional Vitals: Period Temp Pulse Resp BP Sys/Frias Pulse Ox Last 24 Hr 96.9 F-98.3 F 53-72 14-20 122-178/64-93 99-100 Results - Labs CBC & BMP: 07/22/17 04:42 07/21/17 04:52
--- NOTE | 2017-07-22 12:04 | Event Note ---
Patient is scheduled for discharge today. He is being given the following appointments: Cardiolite stress test at [facility], third floor, August 05, 2017 at 0815. Patient has been instructed to be NPO after midnight the evening prior to stress test, hold atenolol the morning of stress testing. Also, patient is being given a follow-up appoint with Dr. Aisha Godinez at [facility], fifth floor, September 01, 2017 at 12:40 PM.
--- NOTE | 2017-07-22 12:04 | Discharge Summary ---
Hospital Course - Hospital Course Hospital Course: Mr. Riojas is a 62 year old black male with a history of GERD, hypertension, diabetes, irregular heart rate, and chronic back problems that presented to the ED for further evaluation of rectal bleeding on 07/20. Patient states that on he began to have some abdominal pain. He went to the bathroom, had a bowel movement, and noted a black color to his stool. Pt. states that as the day went on, he had frequent bowel movements with loose black stool. Pt. states that he also experienced a subjective fever, chills, nausea with no vomiting and abdominal pain. Pt. denies chest pain but some mild shortness of breath at times. On arrival to ED, pt reported that the stool was bright red. He stated that he is scheduled for an EGD on the . He also reports a recent hospitalization where he underwent a duodenal repair. On exam in the ED, pt had a WBC of 13.8, Na 135, K 4, Bun 21, creatinine 1.30, and glucose of 256. Pt. also noted to have abnormal EKG. Pt's troponin was noted at 1.010. He was admitted to our service and a consult was placed to Cardiology and GI. Pt. was evaluated by Cardiology and patients symptoms were not concerning for acute NM. Cardiac enzymes were cycled and remained flat. Pt. denied any active issues and cardiology signed off. GI evaluated patient. He underwent a EGD with biopsy. They found a duodenal ulcer and erosive gastritis. Pt. may need to consider colonoscopy as an outpatient. Pt. tolerated the procedure well. Pt. is stable to be discharged. Further discharge instructions to follow per Dr. Kirby. Diagnosis - Discharge Diagnosis (1) Abnormal EKG Status: Chronic (2) Acute GI bleeding Status: Acute (3) Diabetes mellitus Status: Chronic (4) Essential hypertension Status: Chronic Discharge Plan - Discharge Medications No Action metFORMIN [Glucophage] 500 mg PO DAILY W/BREAKFAST Aspirin 81 mg PO QAM Pantoprazole Tab [Protonix Tab] 40 mg PO BID #90 tablet Amlodipine Besylate 10 mg PO QAM Lisinopril [Prinivil] 20 mg PO BID #60 tablet Atenolol [Tenormin] 25 mg PO QAM - Follow Up or Referral - Forms/Instructions Exam - Constitutional Vitals: Period Temp Pulse Resp BP Sys/Firas Pulse Ox Last 24 Hr 96.5 F-98.4 F 53-72 18-20 122-201/64-97 94-100 Discharge Results Procedures and tests throughout hospitalization: Pending Orders 07/20/17 15:45 Blood Culture Stat Labs on day of discharge: Labs from last 24 hours 07/22/17 07/22/17 07/21/17 08:02 04:42 20:21 WBC 9.2 RBC 5.33 Hgb 15.2 Hct 45.4 MCV 85.2 L MCH 29 MCHC 33.5 RDW 13.3 Plt Count 231 MPV 13.0 H Neut % (Auto) 58.6 Lymph % (Auto) 26.8 [place] % (Auto) 11.7 Eos % (Auto) 1.7 Baso % (Auto) 0.7 Neut # (Auto) 5.4 Lymph # (Auto) 2.5 [place] # (Auto) 1.1 H Eos # (Auto) 0.2 Baso # (Auto) 0.1 Immature Gran % 0.5 Nucleated RBC % 0.0 Immature Gran # 0.05 Nucleated RBCs # 0.00 Immature Plt Fraction 0.0 POC Glucose 152 H 118 H 07/21/17 07/21/17 07/21/17 16:01 14:29 12:57 WBC RBC Hgb 13.8 L Hct MCV MCH MCHC RDW Plt Count MPV Neut % (Auto) Lymph % (Auto) [place] % (Auto) Eos % (Auto) Baso % (Auto) Neut # (Auto) Lymph # (Auto) [place] # (Auto) Eos # (Auto) Baso # (Auto) Immature Gran % Nucleated RBC % Immature Gran # Nucleated RBCs # Immature Plt Fraction POC Glucose 171 H 139 H Preliminary micro results at discharge 07/20/17 15:45 Blood Culture - Preliminary Blood No growth at 1 day 07/20/17 15:45 Blood Culture - Preliminary Blood No growth at 1 day DS: Provider Date of admission: 07/20/17 11:48 Primary care physician: MATEO Grigsby Attending physician on admission: Therese Kirby MD Consults: 07/20/17 12:22 Consult to Physician [CONS] Routine Comment: abnormal ekg/elevated troponin Consulting Provider: Porter Hale When should Consulting Provider be notified: Now Person Notified: ARABELLA MCQUEEN Date Notified: 07/20/17 07/20/17 14:03 Consult to Physician [CONS] Routine Comment: bright red blood per rectum Consulting Provider: Dane Villafana Consult to Specialist Group: Gastroenterology Person Notified: Karen Date Notified: 07/20/17 Time Notified: 15:25 Discharging clinician: Ashly Tate NP
[2017-07-22 12:06] VITALS: BP 168/79
--- NOTE | 2017-07-22 19:21 | Pathology Report from [facility] ---
[facility] ACCESSION # : [id number] PATIENT NAME : Lolis Blanton ORDERING DR : SERGEI CHACON MD CLINICAL HX: Epigastric pain POST-OP DX: Gastric ulceration SPECIMEN INFO: Gastric biopsy GROSS DESCRIPTION: The specimen is received in formalin labeled with the patients name and consists of two mcconnell tissue fragments measuring 0.5 x 0.2 cm collectively. Submitted in one cassette. DIAGNOSIS FOR LOLIS BLANTON: GASTRIC, BIOPSY: Moderate acute and chronic gastritis with extensive intestinal metaplasia and focal ulceration. No H. pylori seen on H&E or special stains. No evidence of malignancy identified. COLLECTED DATE: 07/21/2017 [facility] REPORT DATE: 07/22/2017 ELECTRONICALLY SIGNED BY: Maia Shore M.D. 07/22/2017 - 14:44:14 [email or web address]
== END 2017-07-22 13:14 | disposition home or self-care (01) | DRG 379 ==
LOC: N.ED 09:51 → N.EDINP 11:48 → N.TELEN 14:35
PROVIDERS: ADMIT Internal Medicine; ATTEND Internal Medicine